=== PATIENT | female | born 1960 | race African-American/Black ===

== ENCOUNTER 2018-09-27 18:26 | Inpatient (IN) | payer OTHER ==
[2018-09-27] MEDS ORDERED: Dextrose 50% Abboject 50 ML SYRINGE ONE (18:46)
[2018-09-27 18:59] LABS: #Eosinphils 0.1 thou/uL (0.0-0.7); #Lymphocytes 0.8 thou/uL (1.20-3.40); #Neutrophils 4.8 thou/uL (1.40-6.50); %Basophils 0.4 % (0.0-1.0); %Eosinophils 2.1 % (0.0-10.0); %Lymphocytes 14.4 % (21.0-51.0); %Monocytes 0.7 % (0.0-10.0); %Neutrophils 82.5 % (42.0-75.0); Hemoglobin 11.8 g/dL (12.0-16.0); Mean Corpuscular HGB CONC 32.9 g/dL (32.0-36.0); Mean Corpuscular Hemoglobin 29.5 pg (27.0-31.0); Mean Corpuscular Volume 89.6 fL (78.0-98.0); Mean Platelet Volume 8.6 fL (7.4-10.4); Platelet Count 181 thou/uL (130-400); RBC Distribution Width 20.5 % (11.5-14.5); White Blood Cell (WBC) Count 5.8 thou/uL (4.8-10.8)
[2018-09-27 19:10] LABS: Actual Bicarbonate (HCO3a) 24.7 mEq/L (22-28); Analyzer IN Cardio ER; CO2 Tension 40.2 mmHg (35.0-45.0); Calcium, Ionized 0.99 mmol/L (1.12-1.30); Carboxyhemoglobin (COHb) 0.1 gm% (0.0-3.0); Hemoglobin (Hb) 11.6 g/dL (12.0-16.0); O2 Tension (PaO2) 69.7 mmHg (80.0-100.0); pH, Arterial 7.41 (7.35-7.45)
[2018-09-27] MEDS ORDERED: Piperacillin/Tazobactam 4.5 GM VIAL ONE (19:11)
[2018-09-27 19:12] LABS: Puncture Site LRA
[2018-09-27] MEDS ORDERED: Magnesium 2 GM/50 ML BAG (IN WATER) ONE (19:14)
[2018-09-27] MEDS ORDERED: Potassium Chloride 20 MEQ TAB ONE (20:01)
[2018-09-27 20:09] LABS: ALT (SGPT) 28 U/L (8-55); AST (SGOT) 63 U/L (5-34); Albumin 2.6 g/dL (3.5-5.0); Alkaline Phosphatase 88 U/L (40-150); Anion Gap 14 mmol/L (10-20); BUN (Urea Nitrogen) 46 mg/dL (9.8-20.1); Bilirubin, Total 0.3 mg/dL (0.2-1.2); CK (CPK) 746 U/L (29-168); Calc. Creatinine Clearance 0 mL/min (70-130); Calcium 7.3 mg/dL (7.8-10.44); Carbon Dioxide 24 mmol/L (22-29); Chloride 105 mmol/L (98-107); Estimated GFR-MDRD 16; Globulin 1.9 g/dL (2.4-3.5); Glucose 148 mg/dL (70-105); Magnesium 3.1 mg/dL (1.6-2.6); Protein, Total 4.5 g/dL (6.0-8.3); Sodium 140 mmol/L (136-145)
[2018-09-27 20:14] LABS: Potassium 2.5 mmol/L (3.5-5.1)
[2018-09-27 20:14] LABS: Bilirubin Negative (Negative); Blood, Urine Negative (Negative); Clarity CLEAR (Clear); Glucose, Urine (Dipstick) Negative (Negative); Leukocyte Negative (Negative); Nitrite Negative (Negative); Protein, Urine (Dipstick) 30 mg/dL (Neg-Trace); Specific Gravity, Urine 1.012 (1.002-1.036)
[2018-09-27 20:16] LABS: Bacteria/HPF None Seen HPF (None Seen); RBC/HPF 0-3 HPF (0-3); Squamous Epithelial 0-3 HPF (0-3); WBC/HPF 0-3 HPF (0-3)
--- NOTE | 2018-09-27 20:24 | RAD ---
ONE VIEW CHEST: 09/27/18 COMPARISON: 07/01/08. HISTORY: Dyspnea. FINDINGS: Enlarged cardiac silhouette. The pulmonary vessels are within normal limits. The diffuse interstitial opacities with bilateral perihilar alveolar opacification. No significant pleural fluid. No pneumoth orax. IMPRESSION: Congestive heart failure. POS: PPP
[2018-09-27 20:26] LABS: Hyaline Casts/LPF >50 HYALINE CAST LPF (0-3 Hyaline); Pathc Cast-AUWi Flag 14.97 (0-2.49)
[2018-09-27 20:30] LABS: CKMB 2.6 ng/mL (0-6.6)
[2018-09-27] MEDS ORDERED: Potassium Chloride 40 MEQ in Sodium Chloride 0.9% 250 ML 250 ML IVPB SCH (20:30)
[2018-09-27 20:34] LABS: Crystals/HPF None Seen HPF (Negative); Other Casts/LPF None Seen LPF (0-3 Hyaline); Oval Fat Bodies/HPF None Seen HPF (None Seen); Renal Epithelial None Seen HPF (0-3); Transitional Epithelial NONE SEEN HPF (0-3); Trichomonas/HPF None Seen HPF (None Seen)
[2018-09-27] MEDS ORDERED: Norepinephrine 8 MG/0.9% NS 250 ML ONE (21:11)
--- NOTE | 2018-09-27 22:06 | RAD ---
CHEST ONE VIEW: 09/27/18 COMPARISON: 09/27/18 HISTORY: Central line placement. FINDINGS: Interval placement of a right sided internal jugular central venous catheter. Distal tip projects ove r the superior vena cava. No pneumothorax. There is persistent cardiomegaly, pulmonary vascular conge stion, and interstitial/alveolar opacification. No pleural effusion. IMPRESSION: 1. Interval placement of a right sided internal jugular central venous catheter. Distal tip proj ects over the expected region of the superior vena cava. No pneumothorax. 2. Findings compatible with congestive heart failure. POS: PPP
[2018-09-27 23:12] LABS: Lactic Acid 1.5 mmol/L (0.5-2.2)
[2018-09-27 23:35] LABS: Anion Gap 17 mmol/L (10-20); BUN (Urea Nitrogen) 45 mg/dL (9.8-20.1); Calc. Creatinine Clearance 0 mL/min (70-130); Calcium 8.1 mg/dL (7.8-10.44); Carbon Dioxide 24 mmol/L (22-29); Chloride 106 mmol/L (98-107); Estimated GFR-MDRD 17; Glucose 95 mg/dL (70-105); Potassium 4.5 mmol/L (3.5-5.1); Sodium 142 mmol/L (136-145)
[2018-09-27] MEDS ORDERED: Furosemide 40 MG/4 ML VIAL ONE (23:46)
[2018-09-28] MEDS ORDERED: Acetaminophen 325 MG TAB PO PRN (00:20)
[2018-09-28] MEDS ORDERED: Ondansetron PF 4 MG/2 ML Vial IVP PRN (00:20)
[2018-09-28] MEDS ORDERED: Norepinephrine 8 MG/0.9% NS 250 ML IVPB SCH (00:30)
[2018-09-28 01:16] LABS: Troponin I 0.031 ng/mL (< 0.028)
[2018-09-28 01:36] VITALS: BMI 38.5
[2018-09-28 02:16] LABS: #Lymphocytes 0.4 thou/uL (1.20-3.40); #Monocytes 0.1 thou/uL (0.11-0.59); #Neutrophils 5.5 thou/uL (1.40-6.50); %Basophils 0.2 % (0.0-1.0); %Eosinophils 0.5 % (0.0-10.0); %Lymphocytes 7.2 % (21.0-51.0); %Monocytes 1.9 % (0.0-10.0); %Neutrophils 90.2 % (42.0-75.0); Hemoglobin 10.6 g/dL (12.0-16.0); Mean Corpuscular HGB CONC 33.5 g/dL (32.0-36.0); Mean Corpuscular Hemoglobin 30.6 pg (27.0-31.0); Mean Corpuscular Volume 91.1 fL (78.0-98.0); Mean Platelet Volume 8.2 fL (7.4-10.4); Platelet Count 157 thou/uL (130-400); RBC Distribution Width 20.3 % (11.5-14.5); Red Blood Cell (RBC) Count 3.47 mill/uL (4.20-5.40); White Blood Cell (WBC) Count 6.1 thou/uL (4.8-10.8)
[2018-09-28] MEDS ORDERED: Vancomycin HCl 1 GM in Premix Bag 1 BAG IVPB SCH (02:30)
[2018-09-28 03:11] LABS: Anion Gap 19 mmol/L (10-20); BUN (Urea Nitrogen) 45 mg/dL (9.8-20.1); Calc. Creatinine Clearance 30 mL/min (70-130); Calcium 8.2 mg/dL (7.8-10.44); Carbon Dioxide 21 mmol/L (22-29); Chloride 106 mmol/L (98-107); Estimated GFR-MDRD 18; Glucose 89 mg/dL (70-105); Potassium 4.1 mmol/L (3.5-5.1); Sodium 142 mmol/L (136-145)
--- NOTE | 2018-09-28 04:00 | HP ---
PRIMARY CARE PHYSICIAN: Glendy Mccormack MD CODE STATUS: Full code. TIME OF EVALUATION: 11:50 p.m. CHIEF COMPLAINT: Shortness of breath. HISTORY OF PRESENT ILLNESS: This is a 58-year-old female patient with past medical history of multiple comorbidities including CHF, AFib, diabetes type 2, hyperlipidemia, hypertension, came to the hospital after having generalized weakness, gradually worsening severe shortness of breath, with no clear triggers, no alleviating factors, the patient was also found to have hypoglycemia, with a fingerstick in the 50s. It looks like she has been taking a home metformin. The symptoms were reported as moderate, sudden onset, no alleviating factors. In the ER, the patient received some hydration. It seems the patient has underlying CHF and might have developed some pulmonary edema, improved with home BiPAP, and also after giving some Lasix, unclear if there is any underlying infection given presentation with hypoglycemia, metformin should not cause hypoglycemia in this patient. REVIEW OF SYSTEMS: CONSTITUTIONAL: No fever, chills or generalized weakness. RESPIRATORY: The patient has cough. No sputum production. Shortness of breath. CARDIOVASCULAR: No chest pain or palpitation. GASTROINTESTINAL: No nausea. No vomiting, diarrhea or abdominal pain. SUPERVISOR GROUNDS: No dizziness, headache or feeling lightheaded. GENITOURINARY: No burning on urination. EXTREMITIES: No leg swelling. All other systems were reviewed and negative except for the findings mentioned noted. PAST MEDICAL HISTORY: As mentioned in the HPI. SURGICAL HISTORY: No surgical history. FAMILY HISTORY: Reviewed and noncontributory to current presentation. PSYCHIATRIC HISTORY: Anxiety and depression. SOCIAL HISTORY: The patient smokes on a daily basis, 4 cigarettes a day. No alcohol. No drugs. ALLERGIES: NO KNOWN DRUG ALLERGIES REPORTED. MEDICATIONS: 1. Hydralazine. 2. Diltiazem. 3. Losartan. 4. Hydrochlorothiazide. 5. Metformin. 6. Leflunomide. 7. Carvedilol. 8. Clonidine. 9. Atorvastatin. 10. Glimepiride. 11. Eliquis. 12. Multaq. 13. Furosemide. 14. Folic acid. PHYSICAL EXAMINATION: VITAL SIGNS: On presentation, initial blood pressure 132/72 with heart rate of 79, respiratory rate was 27, and temperature was 97.4. The patient became hypotensive, was placed on Levophed with improvement of the blood pressure. GENERAL APPEARANCE: The patient is alert, oriented, in mild distress due to respiratory distress. HEENT: Eyes, normal conjunctivae. Moist oral mucosa. Anicteric. Bilateral JVD. RESPIRATORY: Bilateral air entry. Bilateral rales. Bilateral wheezing. Symmetric expansion that is decreased. CARDIOVASCULAR: Normal rate. No murmurs. No gallop. Bilateral leg edema. ABDOMEN: Soft. Normal bowel sounds. MUSCULOSKELETAL: Good range of motion and strength. No tenderness. SKIN: Warm and intact. No pallor. No rash. No redness. Peripheral pulses are present. Capillary refill seems to be intact. NEUROLOGICAL: No evidence of any new focal weakness. Baseline speech. Cranial nerves seems to be intact. PSYCHIATRIC: The patient is in good mood. No anxiety. Optimal judgment. LABORATORY AND DIAGNOSTIC DATA: EKG showed atrial fibrillation at the rate of 69, QRS 84, QT corrected 537. Labs were reviewed. White count 5.8, hemoglobin 11.8, MCV 89, and platelet count 181. ABG was done. The patient has pH of 7.41, pCO2 of 40.2 with pO2 of 69.7. This was done on room air. Chemistry: Sodium 140; potassium 2.5, repeat one 4.5; chloride 105; anion gap 14; BUN 46 with creatinine of 3.63. We do not have previous values to compare. The patient reported she has never been told that her creatinine was high. GFR 16. Glucose 148. Lactic acid 2.6, calcium 7.3, and magnesium 3.1. Chest x-ray was reviewed, showed congestive heart failure. ASSESSMENT AND PLAN: The patient will be placed in the hospital with following medical problems: 1. Acute congestive heart failure exacerbation, chest x-ray is positive, the patient will be placed in diureses, the patient also has kidney failure, query this is acute or chronic, or acute on chronic, start diuresis. The patient has elevated BUN and creatinine. This will need to be monitored. If not improving, the patient might need Nephro for recreational assistant. 2. The patient is in shock hypotension with systolic in the 80s, not resolving with fluids, it could be secondary to acute cardiogenic congestive failure, also might be an underlying infection. Given the severity of the illness, we have started broad-spectrum antibiotics, this can be tomorrow if no evidence for infection is found, we will also send procalcitonin, that will help us to make a decision. 3. Hypokalemia, presenting with potassium of 2.5, been corrected, now is 4.5. 4. Lactic acidosis, presenting with 2.6, now is 1.5. 5. Hmz-[id number]-opmyyoyiv myocardial infarction type 2. The patient presented with troponin 0.044, the second one 0.031, we will monitor, we will treat accordingly. 6. Deep venous thrombosis prophylaxis. 7. History of diabetes, reconcile home medications, sliding scale for optimal control. 8. Hyperlipidemia. Low-cholesterol diet is advised, reconcile home medications. 9. Uncontrolled hypertension. The patient presented with hypotension, this has been stable. We will hold all blood pressure medications, we will reconcile as needed. Job ID: [id number]
[2018-09-28] MEDS: Piperacillin/Tazobactam 2.25 GM in Sodium Chloride 0.9% 100 ML IVPB SCH ×3 (05:08→17:42)
[2018-09-28 05:43] LABS: Troponin I 0.036 ng/mL (< 0.028)
[2018-09-28] MEDS ORDERED: Piperacillin/Tazobactam 4.5 GM in Sodium Chloride 0.9% 100 ML IVPB SCH (06:00)
[2018-09-28] MEDS ORDERED: Furosemide 40 MG/4 ML VIAL SLOW IVP SCH (06:00)
[2018-09-28] MEDS ORDERED: Diabetic Tussin 200 MG/10 ML UDCUP PO PRN (07:58)
[2018-09-28] MEDS ORDERED: Senokot S 8.6-50 MG TAB PO PRN (07:58)
[2018-09-28] MEDS ORDERED: Artificial Tears 18 DROP/0.9 ML EA EYE PRN (07:58)
[2018-09-28] MEDS ORDERED: Cepastat Lozenges 1 LOZ PO PRN (07:58)
[2018-09-28] MEDS ORDERED: Eucerin (Mineral Oil/Petrolatum,White) 30 gm Jar TOP PRN (07:58)
[2018-09-28] MEDS ORDERED: Loratadine 10 MG TAB PO PRN (07:58)
[2018-09-28] MEDS ORDERED: Sodium Chloride 0.65% Nasal 44 ML BOT EA NARE PRN (07:58)
[2018-09-28] MEDS ORDERED: Dextrose 5% in Water 1,000 ML IV PRN ×2 (08:00→17:26)
[2018-09-28] MEDS ORDERED: Dextrose 50% Abboject 50 ML SYRINGE SLOW IVP PRN (08:00)
[2018-09-28] MEDS ORDERED: Oseltamivir 75 MG CAP PO SCH (09:00)
[2018-09-28] MEDS: Saccharomyces boulardii 250 MG CAP PO SCH (09:23)
[2018-09-28] MEDS: Heparin 5,000 UNITS/ML VIAL SC SCH ×3 (09:23→20:15)
[2018-09-28] MEDS: Oseltamivir 6 MG/ML ORAL SUSP PO SCH (09:25)
--- NOTE | 2018-09-28 10:56 | PDOC.PN ---
- Subjective Encounter Start Date: 09/28/18 Encounter Start Time: 09:00 -: old records requested/rev pt is on bipap, she feels better with bipap, her BP has improved and she is off levophed - Objective Resuscitation Status - Order Detail: 09/28/18 00:20 Resuscitation Status Routine Resuscitation Status: FULL: Full Resuscitation MAR Reviewed: Yes Vital Signs & Weight: Vital Signs (12 hours) Temp Pulse Pulse Ox 09/28/18 08:00 98.0 F 09/28/18 04:00 97.5 F L 09/28/18 02:05 82 09/28/18 01:30 98 09/28/18 01:20 98.3 F Weight Weight 217 lb 9.54 oz Most Recent Monitor Data Heart Rate from ECG 98 NIBP 101/59 NIBP BP-Mean 73 Respiration from ECG 29 SpO2 95 I&O: 09/27/18 09/28/18 09/29/18 06:59 06:59 06:59 Intake Total 300 120 Output Total 1500 775 Balance -1200 -655 Result Diagrams: 09/28/18 02:06 09/28/18 02:06 Additional Labs: Accuchecks 09/28/18 09/28/18 09/28/18 10:31 09:17 09:04 POC Glucose 116 H 36 L* 40 L* 09/27/18 09/27/18 19:05 18:41 POC Glucose 228 H 50 L* Radiology Reviewed by me: Yes (chest xray reviewed) EKG Reviewed by me: Yes (afib) Phys Exam - Physical Examination Constitutional: NAD on bipap HEENT: PERRLA, sclera anicteric Neck: no JVD, supple basal rales+ Cardiovascular: no significant murmur, irregular Gastrointestinal: soft, non-tender, no distention, positive bowel sounds Musculoskeletal: no edema, pulses present Neurological: non-focal, normal sensation, moves all 4 limbs Lymphatic: no nodes Psychiatric: normal affect, A&O x 3 Skin: no rash, normal turgor Dx/Plan (1) Acute renal failure superimposed on stage 3 chronic kidney disease Code(s): N17.9 - ACUTE KIDNEY FAILURE, UNSPECIFIED; N18.3 - CHRONIC KIDNEY DISEASE, STAGE 3 (MODERATE) Status: Acute (2) Acute respiratory failure with hypoxemia Code(s): J96.01 - ACUTE RESPIRATORY FAILURE WITH HYPOXIA Status: Acute Comment: on bipap (3) Hypotension Status: Acute (4) Acute on chronic diastolic ACC/AHA stage C congestive heart failure Code(s): I50.33 - ACUTE ON CHRONIC DIASTOLIC (CONGESTIVE) HEART FAILURE Status : Acute (5) Influenza A Code(s): J10.1 - FLU DUE TO OTH IDENT INFLUENZA VIRUS W OTH RESP MANIFEST Status: Acute (6) Hypoglycemia associated with type 2 diabetes mellitus Code(s): E11.649 - TYPE 2 DIABETES MELLITUS WITH HYPOGLYCEMIA WITHOUT COMA Status: Acute (7) Demand ischemia Code(s): I24.8 - OTHER FORMS OF ACUTE ISCHEMIC HEART DISEASE Status: Acute (8) Obesity (BMI 30-39.9) Code(s): E66.9 - OBESITY, UNSPECIFIED Status: Chronic (9) Anemia, normocytic normochromic Code(s): D64.9 - ANEMIA, UNSPECIFIED Status: Chronic (10) Atrial fibrillation Code(s): I48.91 - UNSPECIFIED ATRIAL FIBRILLATION Status: Chronic Qualifiers: Atrial fibrillation type: chronic Qualified Code(s): I48.2 - Chronic atrial fibrillation (11) Dyslipidemia Code(s): E78.5 - HYPERLIPIDEMIA, UNSPECIFIED Status: Chronic (12) Chronic anticoagulation Code(s): Z79.01 - RESIDENTIAL (CURRENT) USE OF ANTICOAGULANTS Status: Chronic - Plan cont current plan of care, continue antibiotics, respiratory therapy * continue bipap * continue vancomycin and zosyn empirically * add tamiflu * cardiology consulted * pulmonary consulted * echo will be done * will repeat labs tomorrow * add respiratory therapy * medication reviewed as below * symptomatic treatment. Review of Systems - Review of Systems Constitutional: negative: fever, chills, sweats, weakness, malaise, other Eyes: negative: Pain, Vision Change, Conjunctivae Inflammation, Eyelid Inflammation, Redness, Other ENT: negative: Ear Pain, Ear Discharge, Nose Pain, Nose Discharge, Nose Congestion, Mouth Pain, Mouth Swelling, Throat Pain, Throat Swelling, Other Respiratory: Cough, SOB with Excertion. negative: Dry, Shortness of Breath, Hemoptysis, Pleuritic Pain, Sputum, Wheezing Cardiovascular: negative: chest pain, palpitations, orthopnea, paroxysmal nocturnal dyspnea, edema, light headedness, other Gastrointestinal: negative: Nausea, Vomiting, Abdominal Pain, Diarrhea, Constipation, Melena, Hematochezia, Other Genitourinary: negative: Dysuria, Frequency, Incontinence, Hematuria, Retention , Other Musculoskeletal: negative: Neck Pain, Shoulder Pain, Arm Pain, Back Pain, Hand Pain, Leg Pain, Foot Pain, Other Skin: negative: Rash, Lesions, Curtis, Bruising, Other - Medications/Allergies Allergies/Adverse Reactions: Allergies Allergy/AdvReac Type Severity Reaction Status Date / Time No Known Drug Allergies Allergy Verified 09/28/18 01:52 Medications: Current Medications Acetaminophen (Tylenol) 650 mg PO Q4H PRN PRN Reason: Headache/Fever/Mild Pain (1-3) Albuterol/Ipratropium (Duoneb) 3 ml NEB [id number] DANIELA Albuterol/Ipratropium (Duoneb) 3 ml NEB [id number] PRN PRN Reason: SOB &/or Wheezing Artificial Tears (Tears Naturale) 2 drop EA EYE PRN PRN PRN Reason: Dry Eyes Dextrose/Water (Dextrose 50%) 25 gm SLOW IVP PRN PRN PRN Reason: Hypoglycemia Glucagon (Glucagon) 1 mg IM PRN PRN PRN Reason: Hypoglycemia Guaifenesin (Robitussin Sf) 200 mg PO Q4H PRN PRN Reason: Cough Heparin Sodium (Porcine) (Heparin) 5,000 units SC TID [facility] Last Admin: 09/28/18 09:23 Dose: 5,000 units Norepinephrine Bitartrate (Levophed) 250 mls @ 0 mls/hr IVPB INF DANIELA; Protocol Vancomycin HCl 750 mg/ Sodium (Chloride) 250 mls @ 250 mls/hr IVPB Q24HR DANIELA Piperacillin Sod/Tazobactam (Sod 2.25 gm/ Sodium Chloride) 100 mls @ 200 mls/ hr IVPB Q6HR [facility] Last Admin: 09/28/18 05:08 Dose: 100 mls Dextrose/Water (D5w) 1,000 mls @ 0 mls/hr IV .Q0M PRN PRN Reason: Hypoglycemia Insulin Human Lispro (Humalog) 0 units SC .MILD SLIDING SCALE PRN PRN Reason: Mild Correctional Scale Loratadine (Claritin) 10 mg PO DAILYPRN PRN PRN Reason: Sinus Symptoms Mineral Oil/White Petrolatum (Eucerin Cream) 0 gm TOP BIDPRN PRN PRN Reason: Dry Skin Miscellaneous Medication (Pharmacy To Dose) 1 each IVPB PRN PRN PRN Reason: Pharmacy to dose Ondansetron HCl (Zofran) 4 mg IVP Q6H PRN PRN Reason: Nausea/Vomiting Oseltamivir Phosphate (Tamiflu) 30 mg PO DAILY [facility] Stop: 10/07/18 09:01 Last Admin: 09/28/18 09:25 Dose: 30 mg Pantoprazole Sodium (Protonix) 40 mg PO DAILY [facility] Last Admin: 09/28/18 09:23 Dose: 40 mg Saccharomyces Boulardii (Florastor) 250 mg PO DAILY [facility] Last Admin: 09/28/18 09:23 Dose: 250 mg Senna/Docusate Sodium (Senokot S) 2 tab PO BID PRN PRN Reason: Constipation Sodium Chloride (Flush - Normal Saline) 10 ml IVF Q12HR [facility] Last Admin: 09/28/18 09:23 Dose: 10 ml Sodium Chloride (Flush - Normal Saline) 10 ml IVF PRN PRN PRN Reason: Saline Flush Sodium Chloride ([place] Nasal [place] 0.65%) 0 ml EA NARE QIDPRN PRN PRN Reason: Nasal Congestion Throat Lozenges (Cepastat Lozenges) 1 zulema PO Q2H PRN PRN Reason: Sore Throat
[2018-09-28] MEDS ORDERED: Digoxin 0.5 MG/2 ML AMP SLOW IVP ONE (14:00)
--- NOTE | 2018-09-28 14:38 | CON ---
DATE OF CONSULTATION: 09/28/2018 CARDIOLOGY CONSULT NOTE INDICATION FOR CONSULTATION: A 58-year-old female with acute respiratory failure. HISTORY OF PRESENT ILLNESS: This is a very unfortunate 58-year-old female, who has been followed by Dr. Messi Mendez in the past, who do not have any significant past medical history, but by review of the records, she does have a history of atrial fibrillation and she is on Multaq. She also has type 2 diabetes and anemia and is being admitted due to increasing shortness of breath and respiratory failure with decreased O2 saturation. She has been found to be positive for influenza A. She denies any significant chest pain. She does have a BiPAP mask on at this time. In obtaining much history and review of systems, it was almost impossible. Although, the patient is still short of breath, but seems to be tolerating the BiPAP mask and O2 saturations are 95%. At this time, she appears to be just having respiratory difficulties, but denies any chest pain, but remains short of breath. PAST MEDICAL HISTORY: Significant for diastolic heart failure, type 2 diabetes, anemia, atrial fibrillation, and hypercholesterolemia. She has history of anxiety and depression. She has apparently some kidney disease and this may be acute on chronic. Her creatinine is elevated. Her past medical history otherwise was obtained by reviewing the medical records and just by asking some yes and no questions of the patient. FAMILY HISTORY: Noncontributory. MEDICATIONS: Include; 1. Multaq. 2. Amaryl. 3. Leflunomide. 4. Eliquis. 5. Losartan/hydrochlorothiazide. 6. Diltiazem. 7. Coreg. 8. Clonidine. 9. Hydralazine. 10. Furosemide. 11. Lipitor. 12. Metformin. 13. ProAir. 14. Folic acid. ALLERGIES: THERE WERE NONE. SOCIAL HISTORY: Apparently, the patient continued to smoke about 4 cigarettes a day. She denied any alcohol or any illicit drug use. REVIEW OF SYSTEMS: Not obtainable as the patient had increased shortness of breath. Mainly her complaint was the dyspnea and shortness of breath. Otherwise, she denied any significant pain. PHYSICAL EXAMINATION: GENERAL: Reveals an obese, middle-aged female. VITAL SIGNS: Blood pressure is 116/59. Heart rate is in the 90s to 120s with atrial fibrillation with irregular heart rate, actually it goes up to 130s to 140s at times. Respiratory rate is 26 to 30, O2 saturation 99%, and temperature is 98.5. HEENT: Shows the head to be normocephalic and atraumatic. LUNGS: I could not hear any significant bruits, but difficult to auscultate due to the rapid respiratory rate and also the upper airway noise. Her chest has diffuse wheezing throughout and some congestion. CARDIOVASCULAR: Reveals irregularly irregular rhythm. Tachycardia. Could not hear any gross murmurs. ABDOMEN: Shows obesity with positive bowel sounds. EXTREMITIES: Show no clubbing or cyanosis. No edema was present. Pedal pulses are present. NEUROLOGIC: The patient appears to be intact. DIAGNOSTIC DATA: Her laboratory data shows hemoglobin 10.6, WBC of 6.1. Blood sugar was 92. Potassium was 4.1, earlier I believe it was less than 3 on admission, I believe her potassium was 2.5 when she is in the emergency room. Her creatinine is 3.26. Her CPK was 746 with MB of 2.6. Troponin I is 0.04, decreased down to 0.03 and remains at 0.036, which is indeterminate for myocardial infarction. Certainly based on the elevated CPK, it does not indicate a cardiac problem, especially in view of her renal insufficiency. Echocardiogram is being performed as well while I was seeing the patient and this shows ejection fraction, which appears to be normal at 55% to 60%. There was no significant chamber dilatation that I could elicit in just grossly reviewing of the films. There was no obstructive lesions in the valves and full report will follow, but ejection fraction appears to be normal. She does have atrial fibrillation and likely does have diastolic dysfunction but cannot be clearly identified with the atrial fibrillation with rapid ventricular response. I have reviewed the medications in this patient and would agree with the present medication. ASSESSMENT AND PLAN: 1. Acute respiratory failure due to influenza A. 2. Diabetes. This is under reasonable control at this time. 3. Diastolic heart failure. We will continue to monitor the patient very carefully. 4. Hypercholesterolemia. We would resume her medications when she is off the BiPAP mask, unable to eat. 5. Anemia. This most likely is stable for this patient, but she does have a hemoglobin of 10.6. Chronic atrial fibrillation, for which the patient has been on Multaq and apparently on other oral anticoagulants such as Eliquis. We will continue these medications if possible. We would agree also with beta-blockers and digoxin if necessary, but we will be very careful with the digoxin due to the kidney problems, but we could certainly load her with digoxin administered to control the rate. She has been placed on diltiazem at this time. As long as the blood pressure remains stable, I would agree with the diltiazem in order to control the heart rate also. We will start her with a loading dose of digoxin and then hopefully this will maintain the heart rate. Once we have resolved her underlying respiratory problems and I do not suspect that cardiac status will improve. It might be advantageous for us to obtain any medical records from Dr. Mendez's office to determine whether or not she has had any previous coronary artery disease that we are aware of, but on the EKG there does not seem to have an indication at this time of ischemia. We will be more than happy to continue to follow the patient with you throughout this course, but at this time, we would agree with medications except we will need to slow the heart rate and continue either her Eliquis or subcu Lovenox. Job ID: [id number]
[2018-09-28] MEDS: Diltiazem HCl 125 MG, Admixture Fee 1 EACH in Sodium Chloride 0.9% 100 ML IVPB SCH (17:51)
[2018-09-28 19:23] LABS: Actual Bicarbonate (HCO3a) 26.6 mEq/L (22-28); Base Excess (BEa) 2.3 mEq/L (-2.0 to +3.0); CO2 Tension 40.4 mmHg (35.0-45.0); Calcium, Ionized 1.01 mmol/L (1.12-1.30); Carboxyhemoglobin (COHb) 0.5 gm% (0.0-3.0); Hemoglobin (Hb) 10.5 g/dL (12.0-16.0); Potassium - ABG Lab 3.32 mmol/L (3.70-5.30); pH, Arterial 7.44 (7.35-7.45)
[2018-09-28] MEDS: Digoxin 0.5 MG/2 ML AMP SLOW IVP SCH (19:23)
[2018-09-28] MEDS ORDERED: Furosemide 100 MG/10 ML VIAL SLOW IVP SCH (19:45)
[2018-09-28] MEDS ORDERED: Morphine 4 MG/ML VIAL SLOW IVP SCH (19:45)
--- NOTE | 2018-09-28 22:36 | CON ---
DATE OF CONSULTATION: 09/28/2018 HISTORY OF PRESENT ILLNESS: Carmelina Garg is a pleasant 58-year-old female. She presented early this morning with complaints of shortness of breath. She is in atrial fibrillation. Throughout the day today, she has had intermittent rapid atrial fibrillation and has been on and off BiPAP. She is able to speak in sentences when I interviewed her. She had no chest pain complaints. PAST MEDICAL HISTORY: Remarkable for diabetes, lipid disorder, hypertension. No reported history of heart failure. FAMILY HISTORY: Negative for lung disease in early age. SOCIAL HISTORY: Nonsmoker, nondrinker. REVIEW OF SYSTEMS: Ten-point review of systems is remarkable for shortness of breath. She denies fever, purulent sputum, or hemoptysis. PHYSICAL EXAMINATION: VITAL SIGNS: Heart rate has been up to as high as 150 to 160s today, blood pressure 116/80, respiratory rates in the 30s. She is on BiPAP. Her BiPAP pressures have been increased this evening. She has been given Lasix and morphine this evening. She had a bolus of Cardizem, as well as several doses of digoxin and is on a Cardizem drip. LUNGS: Remarkable for crackles in both lung bases. HEART: Irregular. ABDOMEN: Soft and nontender. EXTREMITIES: Without edema. Chest radiograph showed pulmonary edema last night. LABORATORY DATA: White count 6.1, hemoglobin 10.6, platelets 157. Sodium 142, potassium 4.1, chloride 106, bicarb 21, BUN 45, creatinine 3.26 and 3.63 yesterday. Intake and output were negative 1200. IMPRESSION: 1. Atrial fibrillation induced pulmonary edema. Her atrial fib rate needs to be better controlled. 2. Diastolic dysfunction. 3. History of diabetes. PLAN: Continue with BiPAP. Try morphine for preload reduction, air hunger and Lasix. Hopefully, she will diurese and this hopefully will see improvement in rate control. Her Cardizem dose is being titrated up. Critical care time is 35 minutes. Job ID: [id number] MTDD
[2018-09-29] MEDS: Piperacillin/Tazobactam 2.25 GM in Sodium Chloride 0.9% 100 ML IVPB SCH ×4 (00:46→17:37)
[2018-09-29] MEDS: Digoxin 0.5 MG/2 ML AMP SLOW IVP SCH (02:04)
[2018-09-29] MEDS ORDERED: Vancomycin HCl 750 MG in Sodium Chloride 0.9% 250 ML 250 ML IVPB SCH (03:00)
[2018-09-29] MEDS: Diltiazem HCl 125 MG, Admixture Fee 1 EACH in Sodium Chloride 0.9% 100 ML IVPB SCH ×2 (03:45→10:38)
[2018-09-29 05:05] LABS: #Lymphocytes 0.6 thou/uL (1.20-3.40); #Neutrophils 1.9 thou/uL (1.40-6.50); %Basophils 0.3 % (0.0-1.0); %Eosinophils 0.9 % (0.0-10.0); %Lymphocytes 22.5 % (21.0-51.0); %Monocytes 0.5 % (0.0-10.0); %Neutrophils 75.8 % (42.0-75.0); Hemoglobin 12.3 g/dL (12.0-16.0); Mean Corpuscular HGB CONC 32.4 g/dL (32.0-36.0); Mean Corpuscular Hemoglobin 29.4 pg (27.0-31.0); Mean Corpuscular Volume 90.7 fL (78.0-98.0); Mean Platelet Volume 8.9 fL (7.4-10.4); Platelet Count 127 thou/uL (130-400); RBC Distribution Width 20.4 % (11.5-14.5); Red Blood Cell (RBC) Count 4.19 mill/uL (4.20-5.40); White Blood Cell (WBC) Count 2.5 thou/uL (4.8-10.8)
[2018-09-29 05:23] LABS: Lactic Acid 0.9 mmol/L (0.5-2.2)
[2018-09-29 05:35] LABS: ALT (SGPT) 33 U/L (8-55); AST (SGOT) 55 U/L (5-34); Albumin 3.1 g/dL (3.5-5.0); Alkaline Phosphatase 100 U/L (40-150); Anion Gap 17 mmol/L (10-20); BUN (Urea Nitrogen) 33 mg/dL (9.8-20.1); Bilirubin, Total 0.2 mg/dL (0.2-1.2); Calc. Creatinine Clearance 49 mL/min (70-130); Carbon Dioxide 24 mmol/L (22-29); Chloride 105 mmol/L (98-107); Estimated GFR-MDRD 32; Globulin 3.1 g/dL (2.4-3.5); Glucose 81 mg/dL (70-105); Potassium 2.9 mmol/L (3.5-5.1); Protein, Total 6.2 g/dL (6.0-8.3); Sodium 143 mmol/L (136-145)
[2018-09-29] MEDS ORDERED: Potassium Chloride 20 MEQ TAB PO SCH (06:30)
--- NOTE | 2018-09-29 07:46 | PDOC.CTH ---
Cardiology Progress Note - Subjective The pt seen and examined. No overnight events. No cardiac complaints. She is still on Bipap; however, she stated she can breath better today than yesterday. - Objective Vital Signs Temp Pulse Pulse Ox 09/29/18 04:00 99.8 F H 09/29/18 02:09 111 H 09/29/18 02:04 119 H 09/29/18 00:00 100.2 F H 09/28/18 22:00 116 H 09/28/18 20:00 97 Weight 217 lb 9.54 oz 09/28/18 09/29/18 09/30/18 06:59 06:59 06:59 Intake Total 300 1921 Output Total 1500 3205 Balance -1200 -1284 - Physical Examination General/Neuro: alert & oriented x3 Neck: no JVD present Lungs: other: (diminished at bases) Heart: other: (irregular) Abdomen: soft Extremities: other: (No edema) - Telemetry Telemetry Rhythm: afib 80-90s - Labs Result Diagrams: 09/29/18 04:10 09/29/18 04:10 Troponin/CKMB CK-MB (CK-2) 2.6 ng/mL (0-6.6) 09/27/18 19:30 Troponin I 0.036 ng/mL (< 0.028) H 09/28/18 05:01 - Assessment/Plan 1. Acute Resp. Failure 2/2 Influenza A - Stable with Bipap. managed by test deskman 2. Afib with RVR - well controlled HR with loading dose of Digoxin and Diltiazem 15mg/h. On Hepairn 5000 units TID; Renal function has been improving. May start BBlocker if her BP is stable 3. Acute on Chronic diastolic HF - stable; Not on bblocker or JEAN/ARB 2/2 hypotension and NELSON 4. NELSON on CKD - improving; cont. to monitor DM type 2 - managed by PCP 5. Hyperlipidemia - will resume Lipitor 40mg when she is more stable 6. Anemia - stable 7. Hypokalemia - already replaced this AM MAR reviewed * Echo on 09/28/2018 showed EF 60-65%, possible diastolic dysfunction, Cont. Afib during the test, mild LA. * Dr Mendez's pt. Waiting for medical record from his office for now. Pt. seen and eval. by me. I agree with the A/P by tghe SOURCING ASSISTANT. The HR has improved. Continue to medically manage the rate. The renal function is improving. Review of Systems - Review of Systems Constitutional: reports: weakness EENTM: reports: no symptoms reported Respiratory: reports: see HPI Cardiac (ROS): reports: no symptoms reported ABD/GI: reports: no symptoms reported
[2018-09-29] MEDS: Saccharomyces boulardii 250 MG CAP PO SCH (09:11)
[2018-09-29] MEDS: Heparin 5,000 UNITS/ML VIAL SC SCH ×3 (09:11→22:06)
--- NOTE | 2018-09-29 09:26 | RAD ---
PORTABLE CHEST: History: CHF, shortness of breath. Comparison: 09-27-18 FINDINGS: Mild cardiomegaly. Mild vascular engorgement. The congestive changes have improved when compared to y esterday. No significant effusion. Central line is unchanged. IMPRESSION: Cardiomegaly and mild vascular engorgement. The vascular and interstitial congestion appears improved when compared to yesterday. POS: [facility]
--- NOTE | 2018-09-29 10:01 | PRG ---
DATE OF SERVICE: 09/29/2018 SUBJECTIVE: Carmelina Garg is still on BiPAP. She became more tachypneic last night. She had reasonable blood gas. She had a heart rate still in the 140s contacted, so we gave her 4 of morphine and 60 mg of Lasix IV. I have checked on an hour later and she was dramatically improved. She feels like she is improved this morning. OBJECTIVE: VITAL SIGNS: She is afebrile. Heart rate is 103 to down into the 90s, blood pressure 120/69, oximetry is 97%, respiratory rate is in the high 20s. LUNGS: Remarkable for crackles at lung bases. HEART: Irregularly irregular. ABDOMEN: Soft and nontender. EXTREMITIES: Without edema. Her feet are warm. LABORATORY DATA: White count 2.5, hemoglobin 12.3, platelets 127. Sodium 143, potassium 2.9, chloride 105, bicarb 24, BUN 33, creatinine 1.97. Creatinine yesterday was 3.26. Intake and output was negative 1284 mL. IMPRESSION: 1. Atrial fibrillation-induced pulmonary edema. 2. Respiratory failure, requiring noninvasive ventilatory support. She is clinically improved. 3. History of diabetes. 4. History of hypertension. 5. [id number] kidney disease, improving. PLAN: Try her off BiPAP today. We probably need to continue to keep her in, relatively negative fluid balance as long as her renal function tolerates this. Critical care time 30 minutes. Job ID: [id number] MTDD
[2018-09-29] MEDS: Oseltamivir 6 MG/ML ORAL SUSP PO SCH (10:34)
--- NOTE | 2018-09-29 11:25 | PDOC.PN ---
- Subjective Encounter Start Date: 09/29/18 Encounter Start Time: 09:30 pt is on bipap, her blood sugar still low, her creatinine is improving, - Objective Resuscitation Status - Order Detail: 09/28/18 00:20 Resuscitation Status Routine Resuscitation Status: FULL: Full Resuscitation MAR Reviewed: Yes Vital Signs & Weight: Vital Signs (12 hours) Temp Pulse Resp Pulse Ox 09/29/18 10:29 109 H 09/29/18 10:28 109 H 27 H 97 09/29/18 09:00 98.7 F 09/29/18 07:48 88 09/29/18 07:47 92 30 H 99 09/29/18 04:00 99.8 F H 09/29/18 02:09 111 H 09/29/18 02:04 119 H 09/29/18 00:00 100.2 F H Weight Weight 217 lb 9.54 oz Most Recent Monitor Data Heart Rate from ECG 103 NIBP 121/69 NIBP BP-Mean 86 Respiration from ECG 34 SpO2 97 I&O: 09/28/18 09/29/18 09/30/18 06:59 06:59 06:59 Intake Total 300 1921 60 Output Total 1500 3205 140 Balance -1200 -1284 -80 Result Diagrams: 09/29/18 04:10 09/29/18 04:10 Additional Labs: Accuchecks 09/29/18 09/29/18 09/28/18 09:10 06:40 21:53 POC Glucose 97 52 L* 73 09/28/18 09/28/18 09/28/18 21:03 17:03 11:44 POC Glucose 44 L* 69 L 92 Radiology Reviewed by me: Yes (chest xray reviwed) EKG Reviewed by me: Yes (afib) Phys Exam - Physical Examination Constitutional: NAD on bipap HEENT: PERRLA, moist MMs, sclera anicteric Neck: no JVD, supple Respiratory: wheezing present bilateral coarse sound Cardiovascular: no significant murmur, irregular Gastrointestinal: soft, non-tender, no distention, positive bowel sounds Musculoskeletal: no edema, pulses present Neurological: non-focal, normal sensation Lymphatic: no nodes Psychiatric: normal affect Skin: no rash, normal turgor Dx/Plan (1) Acute renal failure superimposed on stage 3 chronic kidney disease Code(s): N17.9 - ACUTE KIDNEY FAILURE, UNSPECIFIED; N18.3 - CHRONIC KIDNEY DISEASE, STAGE 3 (MODERATE) Status: Acute (2) Acute respiratory failure with hypoxemia Code(s): J96.01 - ACUTE RESPIRATORY FAILURE WITH HYPOXIA Status: Acute Comment: on bipap (3) Hypotension Status: Acute (4) Acute on chronic diastolic ACC/AHA stage C congestive heart failure Code(s): I50.33 - ACUTE ON CHRONIC DIASTOLIC (CONGESTIVE) HEART FAILURE Status : Acute (5) Influenza A Code(s): J10.1 - FLU DUE TO OTH IDENT INFLUENZA VIRUS W OTH RESP MANIFEST Status: Acute (6) Hypoglycemia associated with type 2 diabetes mellitus Code(s): E11.649 - TYPE 2 DIABETES MELLITUS WITH HYPOGLYCEMIA WITHOUT COMA Status: Acute (7) Demand ischemia Code(s): I24.8 - OTHER FORMS OF ACUTE ISCHEMIC HEART DISEASE Status: Acute (8) Obesity (BMI 30-39.9) Code(s): E66.9 - OBESITY, UNSPECIFIED Status: Chronic (9) Anemia, normocytic normochromic Code(s): D64.9 - ANEMIA, UNSPECIFIED Status: Chronic (10) Atrial fibrillation Code(s): I48.91 - UNSPECIFIED ATRIAL FIBRILLATION Status: Chronic Qualifiers: Atrial fibrillation type: chronic Qualified Code(s): I48.2 - Chronic atrial fibrillation (11) Dyslipidemia Code(s): E78.5 - HYPERLIPIDEMIA, UNSPECIFIED Status: Chronic (12) Chronic anticoagulation Code(s): Z79.01 - PRISON (CURRENT) USE OF ANTICOAGULANTS Status: Chronic - Plan cont current plan of care, continue antibiotics * add solumderol * replace potassium * wean off bipap as tolerated * cardiology and pulmonary recommendation appreciated * medication reviewed as below * symptomatic treatment. * continue diuresis * will monitor in ccu * continue cardizem drip for rate control Review of Systems - Review of Systems Constitutional: weakness. negative: fever, chills, sweats, malaise, other Eyes: negative: Pain, Vision Change, Conjunctivae Inflammation, Eyelid Inflammation, Redness, Other ENT: negative: Ear Pain, Ear Discharge, Nose Pain, Nose Discharge, Nose Congestion, Mouth Pain, Mouth Swelling, Throat Pain, Throat Swelling, Other Respiratory: Cough, Shortness of Breath, SOB with Excertion. negative: Dry, Hemoptysis, Pleuritic Pain, Sputum, Wheezing Cardiovascular: negative: chest pain, palpitations, orthopnea, paroxysmal nocturnal dyspnea, edema, light headedness, other Gastrointestinal: negative: Nausea, Vomiting, Abdominal Pain, Diarrhea, Constipation, Melena, Hematochezia, Other Genitourinary: negative: Dysuria, Frequency, Incontinence, Hematuria, Retention , Other Musculoskeletal: negative: Neck Pain, Shoulder Pain, Arm Pain, Back Pain, Hand Pain, Leg Pain, Foot Pain, Other Skin: negative: Rash, Lesions, Curtis, Bruising, Other - Medications/Allergies Allergies/Adverse Reactions: Allergies Allergy/AdvReac Type Severity Reaction Status Date / Time No Known Drug Allergies Allergy Verified 09/28/18 01:52 Medications: Current Medications Acetaminophen (Tylenol) 650 mg PO Q4H PRN PRN Reason: Headache/Fever/Mild Pain (1-3) Last Admin: 09/29/18 02:14 Dose: 650 mg Albuterol/Ipratropium (Duoneb) 3 ml NEB [id number] PRN PRN Reason: SOB &/or Wheezing Albuterol/Ipratropium (Duoneb) 3 ml NEB [id number] DANIELA Last Admin: 09/29/18 10:28 Dose: 3 ml Artificial Tears (Tears Naturale) 2 drop EA EYE PRN PRN PRN Reason: Dry Eyes Dextrose/Water (Dextrose 50%) 25 gm SLOW IVP PRN PRN PRN Reason: Hypoglycemia Glucagon (Glucagon) 1 mg IM PRN PRN PRN Reason: Hypoglycemia Guaifenesin (Robitussin Sf) 200 mg PO Q4H PRN PRN Reason: Cough Heparin Sodium (Porcine) (Heparin) 5,000 units SC TID [facility] Last Admin: 09/29/18 09:11 Dose: 5,000 units Norepinephrine Bitartrate (Levophed) 250 mls @ 0 mls/hr IVPB INF DANIELA; Protocol Piperacillin Sod/Tazobactam (Sod 2.25 gm/ Sodium Chloride) 100 mls @ 200 mls/ hr IVPB Q6HR [facility] Last Admin: 09/29/18 06:30 Dose: 100 mls Dextrose/Water (D5w) 1,000 mls @ 0 mls/hr IV .Q0M PRN PRN Reason: Hypoglycemia Diltiazem HCl 125 mg/Miscellaneous Medication 1 each/ Sodium Chloride 125 mls @ 5 mls/hr IVPB INF DANIELA; Protocol Last Admin: 09/29/18 10:38 Dose: 125 mls Dextrose/Water (D5w) 1,000 mls @ 0 mls/hr IV .Q0M PRN PRN Reason: BLOOD SUGAR Last Admin: 09/28/18 17:49 Dose: 1,000 mls Insulin Human Lispro (Humalog) 0 units SC .MILD SLIDING SCALE PRN PRN Reason: Mild Correctional Scale Loratadine (Claritin) 10 mg PO DAILYPRN PRN PRN Reason: Sinus Symptoms Mineral Oil/White Petrolatum (Eucerin Cream) 0 gm TOP BIDPRN PRN PRN Reason: Dry Skin Miscellaneous Medication (Pharmacy To Dose) 1 each IVPB PRN PRN PRN Reason: Pharmacy to dose Ondansetron HCl (Zofran) 4 mg IVP Q6H PRN PRN Reason: Nausea/Vomiting Oseltamivir Phosphate (Tamiflu) 30 mg PO DAILY [facility] Stop: 10/07/18 09:01 Last Admin: 09/29/18 10:34 Dose: 30 mg Pantoprazole Sodium (Protonix) 40 mg PO DAILY [facility] Last Admin: 09/29/18 09:11 Dose: 40 mg Potassium Chloride (K-Dur) 20 meq PO BID-[facility] Saccharomyces Boulardii (Florastor) 250 mg PO DAILY [facility] Last Admin: 09/29/18 09:11 Dose: 250 mg Senna/Docusate Sodium (Senokot S) 2 tab PO BID PRN PRN Reason: Constipation Sodium Chloride (Flush - Normal Saline) 10 ml IVF Q12HR [facility] Last Admin: 09/29/18 09:12 Dose: 10 ml Sodium Chloride (Flush - Normal Saline) 10 ml IVF PRN PRN PRN Reason: Saline Flush Sodium Chloride ([place] Nasal [place] 0.65%) 0 ml EA NARE QIDPRN PRN PRN Reason: Nasal Congestion Throat Lozenges (Cepastat Lozenges) 1 zulema PO Q2H PRN PRN Reason: Sore Throat
[2018-09-29] MEDS: Potassium Chloride 20 MEQ TAB PO SCH (17:37)
[2018-09-29] MEDS: HumaLOG 300 UNITS/3 ML VIAL SC PRN (22:08)
[2018-09-30] MEDS: Piperacillin/Tazobactam 2.25 GM in Sodium Chloride 0.9% 100 ML IVPB SCH ×5 (00:36→23:00)
[2018-09-30 02:33] LABS: Anion Gap 16 mmol/L (10-20); BUN (Urea Nitrogen) 29 mg/dL (9.8-20.1); Calc. Creatinine Clearance 55 mL/min (70-130); Calcium 8.7 mg/dL (7.8-10.44); Carbon Dioxide 23 mmol/L (22-29); Chloride 101 mmol/L (98-107); Estimated GFR-MDRD 36; Glucose 429 mg/dL (70-105); Potassium 4.1 mmol/L (3.5-5.1); Sodium 136 mmol/L (136-145)
[2018-09-30] MEDS: Diltiazem HCl 125 MG, Admixture Fee 1 EACH in Sodium Chloride 0.9% 100 ML IVPB SCH (06:04)
[2018-09-30] MEDS: HumaLOG 300 UNITS/3 ML VIAL SC PRN ×2 (06:09→17:39)
[2018-09-30] MEDS ORDERED: Diltiazem HCl 125 MG, Admixture Fee 1 EACH in Sodium Chloride 0.9% 100 ML IVPB SCH (08:23)
--- NOTE | 2018-09-30 08:23 | PDOC.CTH ---
Cardiology Progress Note - Subjective The pt seen and examined. No overnight events. No cardiac complaints. She is on NC now without any difficulties. - Objective Vital Signs Temp Pulse Resp Pulse Ox 09/30/18 07:52 82 22 H 97 09/30/18 04:00 98.9 F 09/30/18 02:22 91 22 H 100 09/30/18 00:00 97.9 F 09/29/18 22:22 85 23 H 98 Weight 217 lb 9.54 oz 09/29/18 09/30/18 10/01/18 06:59 06:59 06:59 Intake Total 1921 1799 Output Total 3205 1655 50 Balance -1284 144 -50 - Physical Examination General/Neuro: alert & oriented x3 Neck: no JVD present Lungs: other: (ex. wheezing. ) Heart: RRR Abdomen: soft Extremities: other: (No edema) - Telemetry Telemetry Rhythm: SR with PACs - Labs Result Diagrams: 09/29/18 04:10 09/30/18 02:01 Troponin/CKMB CK-MB (CK-2) 2.6 ng/mL (0-6.6) 09/27/18 19:30 Troponin I 0.036 ng/mL (< 0.028) H 09/28/18 05:01 - Assessment/Plan 1. Acute Resp. Failure 2/2 Influenza A - Stable with NC. managed by gauger delivery 2. Afib with RVR - SR with PAC with Diltiazem 15mg/h, which will be changed to 360mg PO daily from this AM. On Hepairn 5000 units TID; Renal function has been improving. May start BBlocker if her VS and resp are more stable 3. Acute on Chronic diastolic HF - stable; Not on bblocker 2/2 influenza A or JEAN/ARB 2/2 hypotension and NELSON 4. NELSON on CKD - improving; cont. to monitor 5. DM type 2 - managed by PCP 6. Hyperlipidemia - will resume Lipitor 40mg when she is more stable 7. Anemia - stable 8. Hypokalemia - stable MAR reviewed * Echo on 09/28/2018 showed EF 60-65%, possible diastolic dysfunction, Cont. Afib during the test, mild LA. * Dr Mendez's pt. Waiting for medical record from his office for now. Pt. seen and eval. by me. I agree with the A/P by the EXPERIMENTAL PSYCHOLOGIST. She is still wheezing and has coarse rals but improved. RRR. No edema. Review of Systems - Review of Systems Constitutional: reports: no symptoms reported EENTM: reports: no symptoms reported Respiratory: reports: see HPI Cardiac (ROS): reports: no symptoms reported ABD/GI: reports: no symptoms reported : reports: no symptoms reported
[2018-09-30] MEDS: Saccharomyces boulardii 250 MG CAP PO SCH (10:38)
[2018-09-30] MEDS: Potassium Chloride 20 MEQ TAB PO SCH ×2 (10:38→17:22)
[2018-09-30] MEDS: Heparin 5,000 UNITS/ML VIAL SC SCH ×3 (10:39→21:10)
[2018-09-30] MEDS: Oseltamivir 6 MG/ML ORAL SUSP PO SCH (10:46)
--- NOTE | 2018-09-30 11:22 | PDOC.PN ---
- Subjective Encounter Start Date: 09/30/18 Encounter Start Time: 10:00 Patient seen and examined. No new complaints. No overnight events pt is improving, she did not use bipap last night - Objective Resuscitation Status - Order Detail: 09/28/18 00:20 Resuscitation Status Routine Resuscitation Status: FULL: Full Resuscitation MAR Reviewed: Yes Vital Signs & Weight: Vital Signs (12 hours) Temp Pulse Resp Pulse Ox 09/30/18 11:17 95 25 H 95 09/30/18 08:00 97.1 F L 09/30/18 07:52 82 22 H 97 09/30/18 04:00 98.9 F 09/30/18 02:22 91 22 H 100 09/30/18 00:00 97.9 F Weight Weight 217 lb 9.54 oz Most Recent Monitor Data Heart Rate from ECG 89 NIBP 142/79 NIBP BP-Mean 100 Respiration from ECG 26 SpO2 96 I&O: 09/29/18 09/30/18 10/01/18 06:59 06:59 06:59 Intake Total 1921 1799 Output Total 3205 1655 205 Balance -1284 144 -205 Result Diagrams: 09/29/18 04:10 09/30/18 02:01 Additional Labs: Accuchecks 09/29/18 09/29/18 09/29/18 22:06 16:58 12:43 POC Glucose 422 H 103 106 EKG Reviewed by me: Yes (afib) Phys Exam - Physical Examination Constitutional: NAD HEENT: PERRLA, moist MMs, sclera anicteric Neck: no JVD, supple Respiratory: no rales, wheezing present Cardiovascular: RRR, no significant murmur, no rub Gastrointestinal: soft, non-tender, no distention, positive bowel sounds Musculoskeletal: no edema, pulses present Neurological: non-focal, normal sensation, moves all 4 limbs Lymphatic: no nodes Psychiatric: normal affect, A&O x 3 Skin: no rash, normal turgor Dx/Plan (1) Acute renal failure superimposed on stage 3 chronic kidney disease Code(s): N17.9 - ACUTE KIDNEY FAILURE, UNSPECIFIED; N18.3 - CHRONIC KIDNEY DISEASE, STAGE 3 (MODERATE) Status: Acute (2) Acute respiratory failure with hypoxemia Code(s): J96.01 - ACUTE RESPIRATORY FAILURE WITH HYPOXIA Status: Acute Comment: on bipap (3) Hypotension Status: Acute (4) Acute on chronic diastolic ACC/AHA stage C congestive heart failure Code(s): I50.33 - ACUTE ON CHRONIC DIASTOLIC (CONGESTIVE) HEART FAILURE Status : Acute (5) Influenza A Code(s): J10.1 - FLU DUE TO OTH IDENT INFLUENZA VIRUS W OTH RESP MANIFEST Status: Acute (6) Hypoglycemia associated with type 2 diabetes mellitus Code(s): E11.649 - TYPE 2 DIABETES MELLITUS WITH HYPOGLYCEMIA WITHOUT COMA Status: Acute (7) Demand ischemia Code(s): I24.8 - OTHER FORMS OF ACUTE ISCHEMIC HEART DISEASE Status: Acute (8) Obesity (BMI 30-39.9) Code(s): E66.9 - OBESITY, UNSPECIFIED Status: Chronic (9) Anemia, normocytic normochromic Code(s): D64.9 - ANEMIA, UNSPECIFIED Status: Chronic (10) Atrial fibrillation Code(s): I48.91 - UNSPECIFIED ATRIAL FIBRILLATION Status: Chronic Qualifiers: Atrial fibrillation type: chronic Qualified Code(s): I48.2 - Chronic atrial fibrillation (11) Dyslipidemia Code(s): E78.5 - HYPERLIPIDEMIA, UNSPECIFIED Status: Chronic (12) Chronic anticoagulation Code(s): Z79.01 - ECONOMICS LECTURER (CURRENT) USE OF ANTICOAGULANTS Status: Chronic - Plan cont current plan of care, continue antibiotics, respiratory therapy * medication reviewed as below * symptomatic treatment * overall doing well and improving * will consider transfer to floor when pulmonary ok. Review of Systems - Review of Systems ENT: negative: Ear Pain, Ear Discharge, Nose Pain, Nose Discharge, Nose Congestion, Mouth Pain, Mouth Swelling, Throat Pain, Throat Swelling, Other Respiratory: negative: Cough, Dry, Shortness of Breath, Hemoptysis, SOB with Excertion, Pleuritic Pain, Sputum, Wheezing Cardiovascular: negative: chest pain, palpitations, orthopnea, paroxysmal nocturnal dyspnea, edema, light headedness, other Gastrointestinal: negative: Nausea, Vomiting, Abdominal Pain, Diarrhea, Constipation, Melena, Hematochezia, Other Genitourinary: negative: Dysuria, Frequency, Incontinence, Hematuria, Retention , Other Musculoskeletal: negative: Neck Pain, Shoulder Pain, Arm Pain, Back Pain, Hand Pain, Leg Pain, Foot Pain, Other Skin: negative: Rash, Lesions, Curtis, Bruising, Other - Medications/Allergies Allergies/Adverse Reactions: Allergies Allergy/AdvReac Type Severity Reaction Status Date / Time No Known Drug Allergies Allergy Verified 09/28/18 01:52 Medications: Current Medications Acetaminophen (Tylenol) 650 mg PO Q4H PRN PRN Reason: Headache/Fever/Mild Pain (1-3) Last Admin: 09/29/18 02:14 Dose: 650 mg Albuterol/Ipratropium (Duoneb) 3 ml NEB [id number] PRN PRN Reason: SOB &/or Wheezing Albuterol/Ipratropium (Duoneb) 3 ml NEB [id number] [facility] Last Admin: 09/30/18 11:17 Dose: 3 ml Artificial Tears (Tears Naturale) 2 drop EA EYE PRN PRN PRN Reason: Dry Eyes Dextrose/Water (Dextrose 50%) 25 gm SLOW IVP PRN PRN PRN Reason: Hypoglycemia Diltiazem HCl (Cardizem Cd) 360 mg PO DAILY [facility] Last Admin: 09/30/18 10:38 Dose: 360 mg Glucagon (Glucagon) 1 mg IM PRN PRN PRN Reason: Hypoglycemia Guaifenesin (Robitussin Sf) 200 mg PO Q4H PRN PRN Reason: Cough Heparin Sodium (Porcine) (Heparin) 5,000 units SC TID [facility] Last Admin: 09/30/18 10:39 Dose: 5,000 units Piperacillin Sod/Tazobactam (Sod 2.25 gm/ Sodium Chloride) 100 mls @ 200 mls/ hr IVPB Q6HR [facility] Last Admin: 09/30/18 06:04 Dose: 100 mls Dextrose/Water (D5w) 1,000 mls @ 0 mls/hr IV .Q0M PRN PRN Reason: Hypoglycemia Dextrose/Water (D5w) 1,000 mls @ 0 mls/hr IV .Q0M PRN PRN Reason: BLOOD SUGAR Last Admin: 09/28/18 17:49 Dose: 1,000 mls Insulin Human Lispro (Humalog) 0 units SC .MILD SLIDING SCALE PRN PRN Reason: Mild Correctional Scale Last Admin: 09/30/18 06:09 Dose: 6 units Loratadine (Claritin) 10 mg PO DAILYPRN PRN PRN Reason: Sinus Symptoms Methylprednisolone Sodium Succinate (Solu-Medrol) 20 mg IVP Q8HR [facility] Last Admin: 09/30/18 06:04 Dose: 20 mg Mineral Oil/White Petrolatum (Eucerin Cream) 0 gm TOP BIDPRN PRN PRN Reason: Dry Skin Miscellaneous Medication (Pharmacy To Dose) 1 each IVPB PRN PRN PRN Reason: Pharmacy to dose Ondansetron HCl (Zofran) 4 mg IVP Q6H PRN PRN Reason: Nausea/Vomiting Oseltamivir Phosphate (Tamiflu) 30 mg PO DAILY [facility] Stop: 10/07/18 09:01 Last Admin: 09/30/18 10:46 Dose: 30 mg Pantoprazole Sodium (Protonix) 40 mg PO DAILY [facility] Last Admin: 09/30/18 10:39 Dose: 40 mg Potassium Chloride (K-Dur) 20 meq PO BID-[facility] Last Admin: 09/30/18 10:38 Dose: 20 meq Saccharomyces Boulardii (Florastor) 250 mg PO DAILY [facility] Last Admin: 09/30/18 10:38 Dose: 250 mg Senna/Docusate Sodium (Senokot S) 2 tab PO BID PRN PRN Reason: Constipation Sodium Chloride (Flush - Normal Saline) 10 ml IVF Q12HR [facility] Last Admin: 09/30/18 10:46 Dose: 10 ml Sodium Chloride (Flush - Normal Saline) 10 ml IVF PRN PRN PRN Reason: Saline Flush Sodium Chloride ([place] Nasal [place] 0.65%) 0 ml EA NARE QIDPRN PRN PRN Reason: Nasal Congestion Throat Lozenges (Cepastat Lozenges) 1 zulema PO Q2H PRN PRN Reason: Sore Throat
--- NOTE | 2018-09-30 12:03 | PRG ---
DATE OF SERVICE: 09/30/2018 SUBJECTIVE: Carmelina Garg says she feels good. She feels like she is ready to move out of the ICU. She does not feel like she will need noninvasive ventilatory support anymore. OBJECTIVE: VITAL SIGNS: Oximetry is 100% on 2 L cannula, respiratory rate is 25, blood pressure 142/79. LUNGS: Almost clear today. HEART: Regular rhythm. S1 and S2 are normal. ABDOMEN: Soft and nontender. LABORATORY DATA: Sodium 136; potassium 4.1; chloride 101; bicarb 23; BUN 29; and creatinine 1.76, down from 3.63. Intake and outputs, positive 144. IMPRESSION: 1. Atrial fibrillation induced pulmonary edema with diastolic dysfunction. 2. Flu A positive swab. I doubt she is currently contagious for flu. 3. Neutropenia. This may be an variant, her CBC should be repeated. 4. Diabetes. 5. Hypertension. 6. Improving acute on chronic kidney disease. She is stable to move out of the critical care unit in my opinion. Job ID: [id number]
[2018-09-30 21:51] LABS: Glucose Accucheck Confirmation 669 mg/dl (70-105)
[2018-09-30] MEDS ORDERED: Insulin Regular 300 UNITS/3 ML VIAL SC SCH (22:45)
[2018-10-01] MEDS: HumaLOG 300 UNITS/3 ML VIAL SC PRN ×6 (01:00→22:56)
[2018-10-01] MEDS ORDERED: Piperacillin/Tazobactam 2.25 GM VIAL ONE (06:07)
[2018-10-01] MEDS: Piperacillin/Tazobactam 2.25 GM in Sodium Chloride 0.9% 100 ML IVPB SCH (06:07)
--- NOTE | 2018-10-01 08:01 | PDOC.CTH ---
Cardiology Progress Note - Subjective Doing well. No current symptoms. - Objective Vital Signs Temp Pulse Resp Pulse Ox 10/01/18 07:26 81 21 H 100 10/01/18 07:00 98.6 F 10/01/18 05:00 98.6 F 10/01/18 02:11 93 23 H 98 10/01/18 01:00 98.4 F 09/30/18 22:10 119 H 18 97 Weight 217 lb 9.54 oz 09/30/18 10/01/18 10/02/18 06:59 06:59 06:59 Intake Total 1799 1569 Output Total 1655 2065 65 Balance 144 -496 -65 - Physical Examination General/Neuro: alert & oriented x3, NAD Neck: carotid US brisk, no JVD present Lungs: CTA, unlabored respirations Heart: PMI normal, RRR Abdomen: NT/ND, soft Extremities: + edema B - Labs Result Diagrams: 09/29/18 04:10 09/30/18 02:01 Troponin/CKMB CK-MB (CK-2) 2.6 ng/mL (0-6.6) 09/27/18 19:30 Troponin I 0.036 ng/mL (< 0.028) H 09/28/18 05:01 - Assessment/Plan afib with RVR Repsiraotry failure Diastolic dysfunction anemia Pt stable Diastolic dysfunction suspected Transfer to floor Hb stable
[2018-10-01] MEDS: hydrALAZINE 25 MG TAB PO SCH ×3 (08:53→22:49)
[2018-10-01] MEDS: Folic Acid 1 MG TAB PO SCH (08:53)
[2018-10-01] MEDS: Apixaban 5 MG TAB PO SCH ×2 (08:53→22:48)
[2018-10-01] MEDS: Saccharomyces boulardii 250 MG CAP PO SCH (08:56)
[2018-10-01] MEDS: Leflunomide 10 mg Tablet PO SCH (08:57)
[2018-10-01] MEDS: Glimepiride 2 MG TAB PO SCH ×2 (08:57→22:48)
[2018-10-01] MEDS: Carvedilol 3.125 MG TAB PO SCH ×2 (08:57→22:48)
[2018-10-01] MEDS: Oseltamivir 6 MG/ML ORAL SUSP PO SCH (08:57)
[2018-10-01] MEDS: Potassium Chloride 20 MEQ TAB PO SCH ×2 (08:57→18:26)
--- NOTE | 2018-10-01 11:45 | PDOC.PN ---
- Subjective Encounter Start Date: 10/01/18 Encounter Start Time: 08:15 Patient seen and examined. No new complaints. No overnight events - Objective Resuscitation Status - Order Detail: 09/28/18 00:20 Resuscitation Status Routine Resuscitation Status: FULL: Full Resuscitation MAR Reviewed: Yes Vital Signs & Weight: Vital Signs (12 hours) Temp Pulse Resp BP BP Pulse Ox 10/01/18 11:10 98.1 F 102 H 18 140/72 93 L 10/01/18 08:53 124 H 142/81 H 10/01/18 07:55 97 10/01/18 07:26 81 21 H 100 10/01/18 07:00 98.6 F 10/01/18 05:00 98.6 F 10/01/18 02:11 93 23 H 98 10/01/18 01:00 98.4 F Weight Weight 217 lb 9.54 oz Most Recent Monitor Data Heart Rate from ECG 96 NIBP 170/77 NIBP BP-Mean 108 Respiration from ECG 32 SpO2 93 I&O: 09/30/18 10/01/18 10/02/18 06:59 06:59 06:59 Intake Total 1799 1569 120 Output Total 1655 2065 300 Balance 144 -496 -180 Result Diagrams: 09/29/18 04:10 09/30/18 02:01 Additional Labs: Accuchecks 10/01/18 10/01/18 09/30/18 07:30 04:15 16:27 POC Glucose 376 H 482 H 480 H EKG Reviewed by me: Yes Phys Exam - Physical Examination Constitutional: NAD HEENT: PERRLA, moist MMs, sclera anicteric Neck: no JVD, supple Respiratory: no wheezing, no rales, no rhonchi Cardiovascular: no significant murmur, irregular Gastrointestinal: soft, non-tender, no distention, positive bowel sounds Musculoskeletal: no edema, pulses present Neurological: non-focal, normal sensation, moves all 4 limbs Lymphatic: no nodes Psychiatric: normal affect, A&O x 3 Skin: no rash, normal turgor Dx/Plan (1) Acute renal failure superimposed on stage 3 chronic kidney disease Code(s): N17.9 - ACUTE KIDNEY FAILURE, UNSPECIFIED; N18.3 - CHRONIC KIDNEY DISEASE, STAGE 3 (MODERATE) Status: Acute (2) Acute respiratory failure with hypoxemia Code(s): J96.01 - ACUTE RESPIRATORY FAILURE WITH HYPOXIA Status: Acute Comment: on bipap (3) Hypotension Status: Acute (4) Acute on chronic diastolic ACC/AHA stage C congestive heart failure Code(s): I50.33 - ACUTE ON CHRONIC DIASTOLIC (CONGESTIVE) HEART FAILURE Status : Acute (5) Influenza A Code(s): J10.1 - FLU DUE TO OTH IDENT INFLUENZA VIRUS W OTH RESP MANIFEST Status: Acute (6) Hypoglycemia associated with type 2 diabetes mellitus Code(s): E11.649 - TYPE 2 DIABETES MELLITUS WITH HYPOGLYCEMIA WITHOUT COMA Status: Acute (7) Demand ischemia Code(s): I24.8 - OTHER FORMS OF ACUTE ISCHEMIC HEART DISEASE Status: Acute (8) Obesity (BMI 30-39.9) Code(s): E66.9 - OBESITY, UNSPECIFIED Status: Chronic (9) Anemia, normocytic normochromic Code(s): D64.9 - ANEMIA, UNSPECIFIED Status: Chronic (10) Atrial fibrillation Code(s): I48.91 - UNSPECIFIED ATRIAL FIBRILLATION Status: Chronic Qualifiers: Atrial fibrillation type: chronic Qualified Code(s): I48.2 - Chronic atrial fibrillation (11) Dyslipidemia Code(s): E78.5 - HYPERLIPIDEMIA, UNSPECIFIED Status: Chronic (12) Chronic anticoagulation Code(s): Z79.01 - [facility] (CURRENT) USE OF ANTICOAGULANTS Status: Chronic - Plan cont current plan of care, continue antibiotics, respiratory therapy * transfer to tele * cardiology following * on po cardizem cd but rate is not controlled * will dc solumedrol * change to po levaquin * start selected home meds * aggressive scale insulin * medication reviewed as below * symptomatic treatment. Review of Systems - Review of Systems ENT: negative: Ear Pain, Ear Discharge, Nose Pain, Nose Discharge, Nose Congestion, Mouth Pain, Mouth Swelling, Throat Pain, Throat Swelling, Other Respiratory: negative: Cough, Dry, Shortness of Breath, Hemoptysis, SOB with Excertion, Pleuritic Pain, Sputum, Wheezing Cardiovascular: negative: chest pain, palpitations, orthopnea, paroxysmal nocturnal dyspnea, edema, light headedness, other Gastrointestinal: negative: Nausea, Vomiting, Abdominal Pain, Diarrhea, Constipation, Melena, Hematochezia, Other Genitourinary: negative: Dysuria, Frequency, Incontinence, Hematuria, Retention , Other Musculoskeletal: negative: Neck Pain, Shoulder Pain, Arm Pain, Back Pain, Hand Pain, Leg Pain, Foot Pain, Other - Medications/Allergies Allergies/Adverse Reactions: Allergies Allergy/AdvReac Type Severity Reaction Status Date / Time No Known Drug Allergies Allergy Verified 09/28/18 01:52 Medications: Current Medications Acetaminophen (Tylenol) 650 mg PO Q4H PRN PRN Reason: Headache/Fever/Mild Pain (1-3) Last Admin: 09/29/18 02:14 Dose: 650 mg Albuterol/Ipratropium (Duoneb) 3 ml NEB [id number] PRN PRN Reason: SOB &/or Wheezing Albuterol/Ipratropium (Duoneb) 3 ml NEB [id number] [facility] Last Admin: 10/01/18 07:26 Dose: 3 ml Apixaban (Eliquis) 5 mg PO BID [facility] Last Admin: 10/01/18 08:53 Dose: 5 mg Artificial Tears (Tears Naturale) 2 drop EA EYE PRN PRN PRN Reason: Dry Eyes Atorvastatin Calcium (Lipitor) 40 mg PO [facility] Carvedilol (Coreg) 3.125 mg PO BID [facility] Last Admin: 10/01/18 08:57 Dose: 3.125 mg Dextrose/Water (Dextrose 50%) 25 gm SLOW IVP PRN PRN PRN Reason: Hypoglycemia Diltiazem HCl (Cardizem Cd) 360 mg PO DAILY [facility] Last Admin: 10/01/18 08:52 Dose: 360 mg Folic Acid (Folvite) 1 mg PO DAILY [facility] Last Admin: 10/01/18 08:53 Dose: 1 mg Glimepiride (Amaryl) 2 mg PO BID [facility] Last Admin: 10/01/18 08:57 Dose: 2 mg Glucagon (Glucagon) 1 mg IM PRN PRN PRN Reason: Hypoglycemia Guaifenesin (Robitussin Sf) 200 mg PO Q4H PRN PRN Reason: Cough Hydralazine HCl (Apresoline) 50 mg PO TID [facility] Last Admin: 10/01/18 08:53 Dose: 50 mg Dextrose/Water (D5w) 1,000 mls @ 0 mls/hr IV .Q0M PRN PRN Reason: Hypoglycemia Dextrose/Water (D5w) 1,000 mls @ 0 mls/hr IV .Q0M PRN PRN Reason: BLOOD SUGAR Last Admin: 09/28/18 17:49 Dose: 1,000 mls Insulin Human Lispro (Humalog) 0 units SC .AGGRESSIVE SLIDING PRN PRN Reason: Aggressive Correctional Scale Last Admin: 10/01/18 07:47 Dose: 13 unit Insulin Human Lispro (Humalog) 0 units SC .BEDTIME SLIDING SC PRN PRN Reason: Bedtime Correctional Scale Leflunomide (Arava) 10 mg PO DAILY [facility] Last Admin: 10/01/18 08:57 Dose: 10 mg Levofloxacin (Levaquin) 500 mg PO 0600 [facility] Loratadine (Claritin) 10 mg PO DAILYPRN PRN PRN Reason: Sinus Symptoms Mineral Oil/White Petrolatum (Eucerin Cream) 0 gm TOP BIDPRN PRN PRN Reason: Dry Skin Miscellaneous Medication (Pharmacy To Dose) 1 each IVPB PRN PRN PRN Reason: Pharmacy to dose Ondansetron HCl (Zofran) 4 mg IVP Q6H PRN PRN Reason: Nausea/Vomiting Oseltamivir Phosphate (Tamiflu) 30 mg PO DAILY [facility] Stop: 10/07/18 09:01 Last Admin: 10/01/18 08:57 Dose: 30 mg Pantoprazole Sodium (Protonix) 40 mg PO DAILY [facility] Last Admin: 10/01/18 08:56 Dose: 40 mg Potassium Chloride (K-Dur) 20 meq PO BID[facility] Last Admin: 10/01/18 08:57 Dose: 20 meq Saccharomyces Boulardii (Florastor) 250 mg PO DAILY [facility] Last Admin: 10/01/18 08:56 Dose: 250 mg Senna/Docusate Sodium (Senokot S) 2 tab PO BID PRN PRN Reason: Constipation Sodium Chloride (Flush - Normal Saline) 10 ml IVF Q12HR [facility] Last Admin: 10/01/18 08:58 Dose: 10 ml Sodium Chloride (Flush - Normal Saline) 10 ml IVF PRN PRN PRN Reason: Saline Flush Sodium Chloride ([place] Nasal [place] 0.65%) 0 ml EA NARE QIDPRN PRN PRN Reason: Nasal Congestion Throat Lozenges (Cepastat Lozenges) 1 zulema PO Q2H PRN PRN Reason: Sore Throat
[2018-10-01 15:49] LABS: Hemoglobin 10.3 g/dL (12.0-16.0); Platelet Count 142 thou/uL (130-400)
--- NOTE | 2018-10-01 21:47 | PRG ---
DATE OF SERVICE: 10/01/2018 SERVICE: Pulmonary Medicine. INTERVAL HISTORY: The patient is doing really well from respiratory standpoint. Breathing comfortably. There has been no interval change to her condition. She denies any shortness of breath, nausea, or vomiting. She has actually been able to get up and walk to bathroom without any difficulty. Otherwise, she essentially feels like she has returned to her usual state of health. PHYSICAL EXAMINATION: VITAL SIGNS: Afebrile. Pulse 80, blood pressure 163/73, respirations 18, and saturation 98% on room air. GENERAL: The patient is awake and alert, in no apparent distress. LUNGS: Excellent air entry with no prolonged expiratory phase. I do not appreciate any crackles. No wheezing or rhonchi are appreciated. HEART: Normal rate and regular. ABDOMEN: Soft, nontender, and nondistended. Bowel sounds are positive. MUSCULOSKELETAL: No cyanosis or clubbing. There is no pitting in the bilateral lower extremities. NEUROLOGIC: Grossly nonfocal. LABORATORY DATA: Hemoglobin 10.3. Creatinine 1.48, continuing to trend downward. Urinalysis is unremarkable. Influenza A is positive, B is negative. Blood cultures x2 are unremarkable. DIAGNOSTIC STUDIES: Echocardiogram demonstrates probable diastolic dysfunction which cannot be more clearly evaluated because of underlying atrial fibrillation. Ejection fraction is normal. Chest x-ray demonstrates interstitial infiltrates. Cephalization is noted. Possible small effusion. Cardiomegaly is present on this portable film. IJ is in good position. ASSESSMENT: 1. Acute hypoxic respiratory failure, improving. 2. [id number] diastolic heart failure. 3. Atrial fibrillation, returned to sinus rhythm. 4. Influenza A. 5. Acute kidney injury. DISCUSSION AND PLAN: From my perspective, the patient is stable for transition out of the hospital. Pulmonary will continue to follow if she remains in-house. She will need to complete a 5-day course of antibiotic and Tamiflu. If she remains in-house, we will continue to follow. Job ID: [id number]
[2018-10-01] MEDS: Atorvastatin Calcium 40 MG TAB PO SCH (22:48)
[2018-10-02] MEDS ORDERED: Labetalol HCl 100 MG/20 ML VIAL SLOW IVP PRN (01:10)
[2018-10-02 06:08] LABS: ALT (SGPT) 33 U/L (8-55); AST (SGOT) 28 U/L (5-34); Albumin 3.3 g/dL (3.5-5.0); Alkaline Phosphatase 106 U/L (40-150); Anion Gap 15 mmol/L (10-20); BUN (Urea Nitrogen) 28 mg/dL (9.8-20.1); Bilirubin, Total 0.3 mg/dL (0.2-1.2); Calc. Creatinine Clearance 71 mL/min (70-130); Calcium 9.2 mg/dL (7.8-10.44); Carbon Dioxide 21 mmol/L (22-29); Chloride 112 mmol/L (98-107); Estimated GFR-MDRD 48; Globulin 3.5 g/dL (2.4-3.5); Glucose 230 mg/dL (70-105); Potassium 4.8 mmol/L (3.5-5.1); Protein, Total 6.8 g/dL (6.0-8.3); Sodium 143 mmol/L (136-145)
[2018-10-02 06:45] LABS: Band 1 % (5-11); Burr Cells SLIGHT = 2-5 cells (100X) (0-1/hpf); Hemoglobin 10.9 g/dL (12.0-16.0); Lymphocytes 24 % (21-51); MDiff Complete? YES; Mean Corpuscular HGB CONC 32.4 g/dL (32.0-36.0); Mean Corpuscular Hemoglobin 29.6 pg (27.0-31.0); Mean Corpuscular Volume 91.3 fL (78.0-98.0); Mean Platelet Volume 8.1 fL (7.4-10.4); Monocytes 3 % (0-10); Neutrophil 72 % (42-75); Platelet Count 163 thou/uL (130-400); RBC Distribution Width 20.8 % (11.5-14.5); Red Blood Cell (RBC) Count 3.68 mill/uL (4.20-5.40); White Blood Cell (WBC) Count 2.5 thou/uL (4.8-10.8)
[2018-10-02] MEDS: Folic Acid 1 MG TAB PO SCH (08:31)
[2018-10-02] MEDS: Apixaban 5 MG TAB PO SCH ×2 (08:31→21:28)
[2018-10-02] MEDS: Potassium Chloride 20 MEQ TAB PO SCH ×2 (08:32→17:14)
[2018-10-02] MEDS: hydrALAZINE 25 MG TAB PO SCH ×3 (08:32→21:29)
[2018-10-02] MEDS: Saccharomyces boulardii 250 MG CAP PO SCH (08:32)
[2018-10-02] MEDS: Leflunomide 10 mg Tablet PO SCH (08:32)
[2018-10-02] MEDS: Carvedilol 3.125 MG TAB PO SCH (08:32)
[2018-10-02] MEDS: Oseltamivir 6 MG/ML ORAL SUSP PO SCH (08:32)
[2018-10-02] MEDS: Glimepiride 2 MG TAB PO SCH ×2 (08:32→21:28)
--- NOTE | 2018-10-02 10:47 | PDOC.PN ---
- Subjective Encounter Start Date: 10/02/18 Encounter Start Time: 08:10 Patient seen and examined. No new complaints. No overnight events - Objective Resuscitation Status - Order Detail: 09/28/18 00:20 Resuscitation Status Routine Resuscitation Status: FULL: Full Resuscitation MAR Reviewed: Yes Vital Signs & Weight: Vital Signs (12 hours) Temp Pulse Resp BP BP Pulse Ox 10/02/18 09:11 84 20 10/02/18 07:10 98.1 F 88 18 164/89 H 92 L 10/02/18 06:00 158/96 H 10/02/18 03:53 98.1 F 91 20 179/88 H 94 L 10/02/18 02:34 107 H 182/94 H 10/02/18 02:27 107 H 18 94 L 10/02/18 00:45 182/94 H 10/01/18 22:49 107 H 187/75 H 10/01/18 22:47 85 16 93 L Weight Weight 210 lb Most Recent Monitor Data Heart Rate from ECG 96 NIBP 170/77 NIBP BP-Mean 108 Respiration from ECG 32 SpO2 93 I&O: 10/01/18 10/02/18 10/03/18 06:59 06:59 06:59 Intake Total 1569 950 Output Total 2065 1000 Balance -496 -50 Result Diagrams: 10/02/18 05:10 10/02/18 05:10 Additional Labs: Accuchecks 10/02/18 10/01/18 10/01/18 06:01 20:21 17:01 POC Glucose 240 H 245 H 250 H 10/01/18 10/01/18 09/30/18 11:35 00:59 06:05 POC Glucose 363 H Greater than 550 H* 401 H EKG Reviewed by me: Yes (afib) Phys Exam - Physical Examination Constitutional: NAD HEENT: PERRLA, moist MMs, sclera anicteric Neck: no JVD, supple Respiratory: no wheezing, no rales, no rhonchi Cardiovascular: no significant murmur, irregular Gastrointestinal: soft, non-tender, no distention, positive bowel sounds Musculoskeletal: no edema, pulses present Neurological: non-focal, normal sensation Lymphatic: no nodes Psychiatric: normal affect, A&O x 3 Skin: no rash, normal turgor Dx/Plan (1) Acute renal failure superimposed on stage 3 chronic kidney disease Code(s): N17.9 - ACUTE KIDNEY FAILURE, UNSPECIFIED; N18.3 - CHRONIC KIDNEY DISEASE, STAGE 3 (MODERATE) Status: Acute (2) Acute respiratory failure with hypoxemia Code(s): J96.01 - ACUTE RESPIRATORY FAILURE WITH HYPOXIA Status: Acute Comment: on bipap (3) Hypotension Status: Acute (4) Acute on chronic diastolic ACC/AHA stage C congestive heart failure Code(s): I50.33 - ACUTE ON CHRONIC DIASTOLIC (CONGESTIVE) HEART FAILURE Status : Acute (5) Influenza A Code(s): J10.1 - FLU DUE TO OTH IDENT INFLUENZA VIRUS W OTH RESP MANIFEST Status: Acute (6) Hypoglycemia associated with type 2 diabetes mellitus Code(s): E11.649 - TYPE 2 DIABETES MELLITUS WITH HYPOGLYCEMIA WITHOUT COMA Status: Acute (7) Demand ischemia Code(s): I24.8 - OTHER FORMS OF ACUTE ISCHEMIC HEART DISEASE Status: Acute (8) Obesity (BMI 30-39.9) Code(s): E66.9 - OBESITY, UNSPECIFIED Status: Chronic (9) Anemia, normocytic normochromic Code(s): D64.9 - ANEMIA, UNSPECIFIED Status: Chronic (10) Atrial fibrillation Code(s): I48.91 - UNSPECIFIED ATRIAL FIBRILLATION Status: Chronic Qualifiers: Atrial fibrillation type: chronic Qualified Code(s): I48.2 - Chronic atrial fibrillation (11) Dyslipidemia Code(s): E78.5 - HYPERLIPIDEMIA, UNSPECIFIED Status: Chronic (12) Chronic anticoagulation Code(s): Z79.01 - [employer] (CURRENT) USE OF ANTICOAGULANTS Status: Chronic (13) Hypokalemia Code(s): E87.6 - HYPOKALEMIA Status: Acute - Plan cont current plan of care, plan discussed w/ family * medication reviewed as below * symptomatic treatment * Dc dos santos * start PT * discussed with family. Review of Systems - Review of Systems ENT: negative: Ear Pain, Ear Discharge, Nose Pain, Nose Discharge, Nose Congestion, Mouth Pain, Mouth Swelling, Throat Pain, Throat Swelling, Other Respiratory: negative: Cough, Dry, Shortness of Breath, Hemoptysis, SOB with Excertion, Pleuritic Pain, Sputum, Wheezing Cardiovascular: negative: chest pain, palpitations, orthopnea, paroxysmal nocturnal dyspnea, edema, light headedness, other Gastrointestinal: negative: Nausea, Vomiting, Abdominal Pain, Diarrhea, Constipation, Melena, Hematochezia, Other Genitourinary: negative: Dysuria, Frequency, Incontinence, Hematuria, Retention , Other Musculoskeletal: negative: Neck Pain, Shoulder Pain, Arm Pain, Back Pain, Hand Pain, Leg Pain, Foot Pain, Other Skin: negative: Rash, Lesions, Ucrtis, Bruising, Other - Medications/Allergies Allergies/Adverse Reactions: Allergies Allergy/AdvReac Type Severity Reaction Status Date / Time No Known Drug Allergies Allergy Verified 09/28/18 01:52 Medications: Current Medications Acetaminophen (Tylenol) 650 mg PO Q4H PRN PRN Reason: Headache/Fever/Mild Pain (1-3) Last Admin: 09/29/18 02:14 Dose: 650 mg Albuterol/Ipratropium (Duoneb) 3 ml NEB [id number] PRN PRN Reason: SOB &/or Wheezing Albuterol/Ipratropium (Duoneb) 3 ml NEB [id number] [facility] Last Admin: 10/02/18 09:11 Dose: 3 ml Apixaban (Eliquis) 5 mg PO BID [facility] Last Admin: 10/02/18 08:31 Dose: 5 mg Artificial Tears (Tears Naturale) 2 drop EA EYE PRN PRN PRN Reason: Dry Eyes Atorvastatin Calcium (Lipitor) 40 mg PO HS [facility] Last Admin: 10/01/18 22:48 Dose: 40 mg Carvedilol (Coreg) 3.125 mg PO BID [facility] Last Admin: 10/02/18 08:32 Dose: 3.125 mg Dextrose/Water (Dextrose 50%) 25 gm SLOW IVP PRN PRN PRN Reason: Hypoglycemia Diltiazem HCl (Cardizem Cd) 360 mg PO DAILY [facility] Last Admin: 10/02/18 08:32 Dose: 360 mg Folic Acid (Folvite) 1 mg PO DAILY [facility] Last Admin: 10/02/18 08:31 Dose: 1 mg Glimepiride (Amaryl) 2 mg PO BID [facility] Last Admin: 10/02/18 08:32 Dose: 2 mg Glucagon (Glucagon) 1 mg IM PRN PRN PRN Reason: Hypoglycemia Guaifenesin (Robitussin Sf) 200 mg PO Q4H PRN PRN Reason: Cough Hydralazine HCl (Apresoline) 50 mg PO TID [facility] Last Admin: 10/02/18 08:32 Dose: 50 mg Dextrose/Water (D5w) 1,000 mls @ 0 mls/hr IV .Q0M PRN PRN Reason: Hypoglycemia Dextrose/Water (D5w) 1,000 mls @ 0 mls/hr IV .Q0M PRN PRN Reason: BLOOD SUGAR Last Admin: 09/28/18 17:49 Dose: 1,000 mls Insulin Human Lispro (Humalog) 0 units SC .AGGRESSIVE SLIDING PRN PRN Reason: Aggressive Correctional Scale Last Admin: 10/01/18 18:26 Dose: 6 unit Insulin Human Lispro (Humalog) 0 units SC .BEDTIME SLIDING SC PRN PRN Reason: Bedtime Correctional Scale Last Admin: 10/01/18 22:56 Dose: 2 unit Labetalol HCl (Labetalol Hcl) 10 mg SLOW IVP Q6H PRN PRN Reason: SPB>=180 Last Admin: 10/02/18 02:34 Dose: 10 mg Leflunomide (Arava) 10 mg PO DAILY [facility] Last Admin: 10/02/18 08:32 Dose: 10 mg Levofloxacin (Levaquin) 500 mg PO 0600 [facility] Last Admin: 10/02/18 05:36 Dose: 500 mg Loratadine (Claritin) 10 mg PO DAILYPRN PRN PRN Reason: Sinus Symptoms Mineral Oil/White Petrolatum (Eucerin Cream) 0 gm TOP BIDPRN PRN PRN Reason: Dry Skin Miscellaneous Medication (Pharmacy To Dose) 1 each IVPB PRN PRN PRN Reason: Pharmacy to dose Ondansetron HCl (Zofran) 4 mg IVP Q6H PRN PRN Reason: Nausea/Vomiting Oseltamivir Phosphate (Tamiflu) 30 mg PO DAILY [facility] Stop: 10/07/18 09:01 Last Admin: 10/02/18 08:32 Dose: 30 mg Pantoprazole Sodium (Protonix) 40 mg PO DAILY [facility] Last Admin: 10/02/18 08:32 Dose: 40 mg Potassium Chloride (K-Dur) 20 meq PO BID[facility] Last Admin: 10/02/18 08:32 Dose: 20 meq Saccharomyces Boulardii (Florastor) 250 mg PO DAILY [facility] Last Admin: 10/02/18 08:32 Dose: 250 mg Senna/Docusate Sodium (Senokot S) 2 tab PO BID PRN PRN Reason: Constipation Sodium Chloride (Flush - Normal Saline) 10 ml IVF Q12HR [facility] Last Admin: 10/02/18 08:33 Dose: 10 ml Sodium Chloride (Flush - Normal Saline) 10 ml IVF PRN PRN PRN Reason: Saline Flush Sodium Chloride ([place] Nasal [place] 0.65%) 0 ml EA NARE QIDPRN PRN PRN Reason: Nasal Congestion Throat Lozenges (Cepastat Lozenges) 1 zulema PO Q2H PRN PRN Reason: Sore Throat
[2018-10-02] MEDS: HumaLOG 300 UNITS/3 ML VIAL SC PRN ×2 (11:30→17:14)
--- NOTE | 2018-10-02 13:38 | PDOC.CTH ---
Cardiology Progress Note - Subjective Patient with cough/congestion. No other complaints. - Objective Vital Signs Temp Pulse Resp BP BP Pulse Ox 10/02/18 11:15 98.2 F 96 16 163/93 H 94 L 10/02/18 09:11 84 20 10/02/18 07:10 98.1 F 88 18 164/89 H 92 L 10/02/18 06:00 158/96 H 10/02/18 03:53 98.1 F 91 20 179/88 H 94 L 10/02/18 02:34 107 H 182/94 H 10/02/18 02:27 107 H 18 94 L Weight 210 lb 10/01/18 10/02/18 10/03/18 06:59 06:59 06:59 Intake Total 1569 950 Output Total 2065 1000 7 Balance -496 -50 -7 - Physical Examination General/Neuro: alert & oriented x3 Neck: no JVD present Lungs: CTA Heart: RRR, other: Abdomen: NT/ND Extremities: other: (no edema) - Telemetry Telemetry Rhythm: SR - Labs Result Diagrams: 10/02/18 05:10 10/02/18 05:10 Troponin/CKMB CK-MB (CK-2) 2.6 ng/mL (0-6.6) 09/27/18 19:30 Troponin I 0.036 ng/mL (< 0.028) H 09/28/18 05:01 - Assessment/Plan 1. AF 2. Respiratory failure 3. Influenza A 4. HTN 5. Diastolic CHF Rhythm stable. Continue cardizem. Increase Coreg.
[2018-10-02] MEDS ORDERED: Carvedilol 3.125 MG TAB PO SCH (14:30)
--- NOTE | 2018-10-02 17:13 | PRG ---
DATE OF SERVICE: 10/02/2018 SERVICE: Pulmonary Medicine. INTERVAL HISTORY: The patient is doing really well from respiratory standpoint. She is on room air. She is essentially returned to her usual state of health. She continues to cough, but is not bringing up any sputum. Otherwise, there has been no interval change to her condition. PHYSICAL EXAMINATION: VITAL SIGNS: Afebrile, pulse 104, blood pressure 177/80, respirations 17, saturation 92% on room air. GENERAL: The patient is awake and alert, in no apparent distress. LUNGS: Slightly decreased air entry with a prolonged expiratory phase. No wheezing is appreciated. HEART: Normal rate, regular. ABDOMEN: Soft, nontender, and nondistended. Bowel sounds are positive. MUSCULOSKELETAL: No cyanosis or clubbing. There is no pitting in the bilateral lower extremities. NEUROLOGIC: Grossly nonfocal. LABORATORY DATA: WBC 2.5, hemoglobin 10.9, and platelets 163,000. Chloride 112 and up trending, sodium 143. Creatinine has improved to 1.36. Basic metabolic profile and liver function studies are essentially unremarkable otherwise. Influenza A is positive. Blood cultures x2 remain unremarkable. ASSESSMENT: 1. Acute hypoxic respiratory failure, resolved. 2. Acute on chronic diastolic heart failure, currently euvolemic. 3. Atrial fibrillation, returned to sinus rhythm. 4. Influenza A. 5. Acute kidney injury, resolving. DISCUSSION AND PLAN: From my perspective, the patient is stable for transition out of the hospital. We will continue her antibiotics, nebulized medications, and steroids. She can complete a 5-day course of these things. After she was discharged from the hospital, she will need to follow up with her primary care physician. Job ID: [id number]
[2018-10-02] MEDS ORDERED: Carvedilol 6.25 MG TAB PO SCH (21:00)
[2018-10-02] MEDS: Atorvastatin Calcium 40 MG TAB PO SCH (21:28)
[2018-10-03] MEDS: Folic Acid 1 MG TAB PO SCH (10:09)
[2018-10-03] MEDS: hydrALAZINE 25 MG TAB PO SCH ×3 (10:09→22:30)
[2018-10-03] MEDS: Oseltamivir 6 MG/ML ORAL SUSP PO SCH (10:09)
[2018-10-03] MEDS: Leflunomide 10 mg Tablet PO SCH (10:10)
[2018-10-03] MEDS: Apixaban 5 MG TAB PO SCH ×2 (10:10→22:31)
[2018-10-03] MEDS: Glimepiride 2 MG TAB PO SCH ×2 (10:11→22:31)
[2018-10-03] MEDS: Potassium Chloride 20 MEQ TAB PO SCH ×2 (10:11→16:56)
[2018-10-03] MEDS: Saccharomyces boulardii 250 MG CAP PO SCH (10:11)
[2018-10-03] MEDS: Carvedilol 6.25 MG TAB PO SCH ×2 (10:11→22:30)
[2018-10-03] MEDS: HumaLOG 300 UNITS/3 ML VIAL SC PRN ×4 (10:19→22:31)
--- NOTE | 2018-10-03 11:09 | DIS ---
DATE OF ADMISSION: 09/28/2018 DATE OF DISCHARGE: 10/03/2018 PRIMARY CARE PHYSICIAN: Dr. Alena Mccormack. DISCHARGE DISPOSITION: Home. PRIMARY DISCHARGE DIAGNOSES: 1. Acute on chronic diastolic ACC stage C congestive heart failure exacerbation. 2. Acute on chronic kidney failure, baseline chronic kidney disease stage 3. 3. Acute respiratory failure with hypoxia resolved. 4. Demand ischemia of myocardium. 5. Hypoglycemia on admission. 6. Hypokalemia, resolved. 7. Influenza A treated while in hospital. 8. Atrial fibrillation with rapid ventricular response. SECONDARY DISCHARGE DIAGNOSES: 1. Obesity with BMI 37. 2. Dyslipidemia. 3. Chronic anticoagulation. 4. Chronic atrial fibrillation. 5. Normocytic normochromic anemia. 6. Diabetes type 2. 7. Chronic kidney disease, stage 3. 8. Chronic stage C diastolic heart failure. PRIMARY PROCEDURE/OPERATION: Central line placement. RADIOLOGICAL INVESTIGATION: Chest x-ray on admission showed pulmonary vascular congestion. Echocardiography showed diastolic dysfunction, atrial fibrillation. SIGNIFICANT LABORATORY DATA: WBC 2.5, hemoglobin 10.9, platelet 163. Sodium 143, potassium 4.8, BUN 28, creatinine 1.36, glucose 230, calcium 9.2, AST 28, ALT 33 , alkaline phosphatase 106, albumin 3.3. TSH 0.4, cortisol 15.90, Procalcitonin 1.1. Urinalysis unremarkable. Blood culture negative. Influenza A positive. DISCHARGE MEDICATION: 1. ProAir HFA 2 puffs q.6 hourly p.r.n. 2. Xanax 1 mg p.o. t.i.d. p.r.n. 3. Eliquis 5 mg p.o. b.i.d. 4. Lipitor 40 mg p.o. daily. 5. Digoxin 125 mcg po daily 6. Folic acid 1 mg p.o. daily. 7. Lasix 40 mg daily. 8. Amaryl 2 mg b.i.d. 9. Hydralazine 50 mg t.i.d. 10. Leflunomide 10 mg daily. 11. Losartan with hydrochlorothiazide 1 tablet daily. 12. Metformin 1000 mg p.o. b.i.d. 13. Cardizem CD 360 mg p.o. daily. 14. Levaquin 500 mg p.o. daily for 3 more days. 15. Coreg 12.5 mg po bid CONTRAINDICATION: None. CODE STATUS: Full code. INPATIENT CONSULT: Cardiology Group was following while in hospital for atrial fibrillation. Pulmonary group was managing BiPAP. TEST RESULTS PENDING ON DISCHARGE: None. ALLERGIES: NO KNOWN DRUG ALLERGIES. DISCHARGE PLAN: Posthospital, the patient will follow up with primary care physician in 1 or 2 weeks. HOSPITAL COURSE: A 58-year-old female with above-mentioned medical problem, who was admitted in our hospital on September 28, 2018. Please see Dr. An's H and P for further details. On admission, the patient was having respiratory distress. She was having acute on chronic diastolic heart failure as well as acute respiratory failure with hypoxia. She was requiring BiPAP. She also had influenza A positive with acute bronchitis. She also had acute on chronic kidney failure. The patient also developed atrial fibrillation with RVR while in hospital. All this problem treated while in the hospital. She was initially required Cardizem drip and subsequently atrial fibrillation was controlled with increasing Cardizem p.o. dose to 360 mg p.o. daily. Multaq was discontinued, because the patient developed congestive heart failure. The patient is also on chronic anticoagulation with Eliquis therapy because of high CHADS2 score. Initially, the patient was hypotensive, but subsequently blood pressure improved and we resumed all her previous medication. The patient was also hypoglycemic on admission and that is why we kept on hold antidiabetic medication and we gave her dextrose solution, but subsequently blood sugar started going up and we resumed all her home medication with better control of blood sugar. The patient was transferred from ICU when she was no longer requiring BiPAP for 2 to 3 midnights and subsequently, we monitored with Physical Therapy while in hospital. She has finished complete course of Tamiflu while in hospital. Her renal function is also improved to baseline. Her respiratory status improved to normal. She does have a normovolemic status from a congestive heart failure point of view. All consultants cleared her for discharge. The patient is seen and examined at bedside today. PHYSICAL EXAMINATION: VITAL SIGNS: Currently, temperature 98.2, pulse 96, irregular, respiratory rate 18, saturation 91% on room air, blood pressure 170/90, weight 210 pounds. GENERAL: The patient is currently alert, awake, in no obvious acute distress. HEENT: Head; normocephalic and atraumatic. Eyes; pupils round, reactive to light. Extraocular muscle intact. ENT; oropharynx within normal limits. Moist mucous membranes. No oral lesion. LUNGS: Clear to auscultation without any rhonchi or rales. CARDIAC: S1 and S2 irregular without any significant murmur. ABDOMEN: Soft and benign. EXTREMITIES: No edema. NEUROLOGICAL: Nonfocal examination. The patient is medically stable for discharge today. Job ID: [id number] MTDD
--- NOTE | 2018-10-03 11:35 | PDOC.PN ---
- Subjective Encounter Start Date: 10/03/18 Encounter Start Time: 08:10 Patient seen and examined. No new complaints. No overnight events her heart rate not well controlled - Objective Resuscitation Status - Order Detail: 09/28/18 00:20 Resuscitation Status Routine Resuscitation Status: FULL: Full Resuscitation MAR Reviewed: Yes Vital Signs & Weight: Vital Signs (12 hours) Temp Pulse Resp BP BP Pulse Ox 10/03/18 10:45 86 16 10/03/18 10:11 173/95 H 10/03/18 10:09 112 H 173/95 H 10/03/18 10:07 112 H 10/03/18 08:00 98.2 F 96 18 185/93 H 91 L 10/03/18 05:42 88 170/90 H 10/03/18 05:29 83 218/100 H 10/03/18 04:00 98.2 F 61 20 95 10/03/18 02:37 98 22 H 92 L 10/03/18 00:20 98.5 F 99 22 H 92 L Weight Weight 210 lb Most Recent Monitor Data Heart Rate from ECG 96 NIBP 170/77 NIBP BP-Mean 108 Respiration from ECG 32 SpO2 93 I&O: 10/02/18 10/03/18 10/04/18 06:59 06:59 06:59 Intake Total 950 850 Output Total 1000 1657 Balance -50 -807 Result Diagrams: 10/02/18 05:10 10/02/18 05:10 Additional Labs: Accuchecks 10/03/18 10/02/18 10/02/18 05:57 20:25 17:00 POC Glucose 221 H 187 H 179 H 10/02/18 09/30/18 11:21 21:19 POC Glucose 206 H Greater than 550 H* EKG Reviewed by me: Yes (afib) Phys Exam - Physical Examination Constitutional: NAD HEENT: PERRLA, moist MMs, sclera anicteric Neck: no JVD, supple Respiratory: no wheezing, no rhonchi Cardiovascular: no significant murmur, irregular Gastrointestinal: soft, non-tender, no distention, positive bowel sounds Musculoskeletal: no edema, pulses present Neurological: non-focal, normal sensation Psychiatric: normal affect, A&O x 3 Skin: no rash, normal turgor Dx/Plan (1) Acute renal failure superimposed on stage 3 chronic kidney disease Code(s): N17.9 - ACUTE KIDNEY FAILURE, UNSPECIFIED; N18.3 - CHRONIC KIDNEY DISEASE, STAGE 3 (MODERATE) Status: Acute (2) Acute respiratory failure with hypoxemia Code(s): J96.01 - ACUTE RESPIRATORY FAILURE WITH HYPOXIA Status: Acute Comment: on bipap (3) Hypotension Status: Acute (4) Acute on chronic diastolic ACC/AHA stage C congestive heart failure Code(s): I50.33 - ACUTE ON CHRONIC DIASTOLIC (CONGESTIVE) HEART FAILURE Status : Acute (5) Influenza A Code(s): J10.1 - FLU DUE TO OTH IDENT INFLUENZA VIRUS W OTH RESP MANIFEST Status: Acute (6) Hypoglycemia associated with type 2 diabetes mellitus Code(s): E11.649 - TYPE 2 DIABETES MELLITUS WITH HYPOGLYCEMIA WITHOUT COMA Status: Acute (7) Demand ischemia Code(s): I24.8 - OTHER FORMS OF ACUTE ISCHEMIC HEART DISEASE Status: Acute (8) Obesity (BMI 30-39.9) Code(s): E66.9 - OBESITY, UNSPECIFIED Status: Chronic (9) Anemia, normocytic normochromic Code(s): D64.9 - ANEMIA, UNSPECIFIED Status: Chronic (10) Atrial fibrillation Code(s): I48.91 - UNSPECIFIED ATRIAL FIBRILLATION Status: Chronic Qualifiers: Atrial fibrillation type: chronic Qualified Code(s): I48.2 - Chronic atrial fibrillation (11) Dyslipidemia Code(s): E78.5 - HYPERLIPIDEMIA, UNSPECIFIED Status: Chronic (12) Chronic anticoagulation Code(s): Z79.01 - INSURANCE PLAN SPECIALIST (CURRENT) USE OF ANTICOAGULANTS Status: Chronic (13) Hypokalemia Code(s): E87.6 - HYPOKALEMIA Status: Acute - Plan cont current plan of care, continue antibiotics, respiratory therapy * pt will finish flu treatment today * her afib rate control is variable, today increased coreg 25 mg po bid * pt wants to go home but heart rate is concerning, will ask if cardiology has any recommendation * medication reviewed as below * symptomatic treatment. Review of Systems - Review of Systems ENT: negative: Ear Pain, Ear Discharge, Nose Pain, Nose Discharge, Nose Congestion, Mouth Pain, Mouth Swelling, Throat Pain, Throat Swelling, Other Respiratory: negative: Cough, Dry, Shortness of Breath, Hemoptysis, SOB with Excertion, Pleuritic Pain, Sputum, Wheezing Cardiovascular: negative: chest pain, palpitations, orthopnea, paroxysmal nocturnal dyspnea, edema, light headedness, other Gastrointestinal: negative: Nausea, Vomiting, Abdominal Pain, Diarrhea, Constipation, Melena, Hematochezia, Other Genitourinary: negative: Dysuria, Frequency, Incontinence, Hematuria, Retention , Other Musculoskeletal: negative: Neck Pain, Shoulder Pain, Arm Pain, Back Pain, Hand Pain, Leg Pain, Foot Pain, Other - Medications/Allergies Allergies/Adverse Reactions: Allergies Allergy/AdvReac Type Severity Reaction Status Date / Time No Known Drug Allergies Allergy Verified 09/28/18 01:52 Medications: Current Medications Acetaminophen (Tylenol) 650 mg PO Q4H PRN PRN Reason: Headache/Fever/Mild Pain (1-3) Last Admin: 09/29/18 02:14 Dose: 650 mg Albuterol/Ipratropium (Duoneb) 3 ml NEB [id number] PRN PRN Reason: SOB &/or Wheezing Albuterol/Ipratropium (Duoneb) 3 ml NEB [id number] [facility] Last Admin: 10/03/18 10:45 Dose: 3 ml Apixaban (Eliquis) 5 mg PO BID [facility] Last Admin: 10/03/18 10:10 Dose: 5 mg Artificial Tears (Tears Naturale) 2 drop EA EYE PRN PRN PRN Reason: Dry Eyes Atorvastatin Calcium (Lipitor) 40 mg PO HS [facility] Last Admin: 10/02/18 21:28 Dose: 40 mg Carvedilol (Coreg) 12.5 mg PO BID [facility] Last Admin: 10/03/18 10:11 Dose: 12.5 mg Dextrose/Water (Dextrose 50%) 25 gm SLOW IVP PRN PRN PRN Reason: Hypoglycemia Diltiazem HCl (Cardizem Cd) 360 mg PO DAILY [facility] Last Admin: 10/03/18 10:10 Dose: 360 mg Folic Acid (Folvite) 1 mg PO DAILY [facility] Last Admin: 10/03/18 10:09 Dose: 1 mg Glimepiride (Amaryl) 2 mg PO BID [facility] Last Admin: 10/03/18 10:11 Dose: 2 mg Glucagon (Glucagon) 1 mg IM PRN PRN PRN Reason: Hypoglycemia Guaifenesin (Robitussin Sf) 200 mg PO Q4H PRN PRN Reason: Cough Hydralazine HCl (Apresoline) 50 mg PO TID [facility] Last Admin: 10/03/18 10:09 Dose: 50 mg Dextrose/Water (D5w) 1,000 mls @ 0 mls/hr IV .Q0M PRN PRN Reason: Hypoglycemia Dextrose/Water (D5w) 1,000 mls @ 0 mls/hr IV .Q0M PRN PRN Reason: BLOOD SUGAR Last Admin: 09/28/18 17:49 Dose: 1,000 mls Insulin Human Lispro (Humalog) 0 units SC .AGGRESSIVE SLIDING PRN PRN Reason: Aggressive Correctional Scale Last Admin: 10/03/18 10:19 Dose: 6 unit Insulin Human Lispro (Humalog) 0 units SC .BEDTIME SLIDING SC PRN PRN Reason: Bedtime Correctional Scale Last Admin: 10/01/18 22:56 Dose: 2 unit Labetalol HCl (Labetalol Hcl) 10 mg SLOW IVP Q6H PRN PRN Reason: SPB>=180 Last Admin: 10/03/18 05:29 Dose: 10 mg Leflunomide (Arava) 10 mg PO DAILY [facility] Last Admin: 10/03/18 10:10 Dose: 10 mg Levofloxacin (Levaquin) 500 mg PO 0600 [facility] Last Admin: 10/03/18 05:27 Dose: 500 mg Loratadine (Claritin) 10 mg PO DAILYPRN PRN PRN Reason: Sinus Symptoms Mineral Oil/White Petrolatum (Eucerin Cream) 0 gm TOP BIDPRN PRN PRN Reason: Dry Skin Ondansetron HCl (Zofran) 4 mg IVP Q6H PRN PRN Reason: Nausea/Vomiting Oseltamivir Phosphate (Tamiflu) 30 mg PO DAILY [facility] Stop: 10/07/18 09:01 Last Admin: 10/03/18 10:09 Dose: 30 mg Pantoprazole Sodium (Protonix) 40 mg PO DAILY [facility] Last Admin: 10/03/18 10:11 Dose: 40 mg Potassium Chloride (K-Dur) [facility] Last Admin: 10/03/18 10:11 Dose: 20 meq Saccharomyces Boulardii (Florastor) 250 mg PO DAILY [facility] Last Admin: 10/03/18 10:11 Dose: 250 mg Senna/Docusate Sodium (Senokot S) 2 tab PO BID PRN PRN Reason: Constipation Sodium Chloride (Flush - Normal Saline) 10 ml IVF Q12HR DANIELA Last Admin: 10/03/18 10:14 Dose: 10 ml Sodium Chloride (Flush - Normal Saline) 10 ml IVF PRN PRN PRN Reason: Saline Flush Sodium Chloride (Dawes Nasal Harper 0.65%) 0 ml EA NARE QIDPRN PRN PRN Reason: Nasal Congestion Throat Lozenges (Cepastat Lozenges) 1 zulema PO Q2H PRN PRN Reason: Sore Throat
[2018-10-03] MEDS ORDERED: cloNIDine 0.1 MG TAB PO PRN (11:38)
[2018-10-03] MEDS ORDERED: Digoxin 0.5 MG/2 ML AMP SLOW IVP SCH ×2 (11:45→12:00)
--- NOTE | 2018-10-03 15:13 | PRG ---
DATE OF SERVICE: 10/03/2018 SUBJECTIVE: Carmelina Garg has no complaints. Her was in the room, I answered all of his questions. She is still intermittently having rapid atrial fibrillation. She was 118 at lunch time. Her blood pressures have been intermittently elevated as high as 170/99 today. OBJECTIVE: LUNGS: Her lungs are clear. HEART: Regular rhythm. ABDOMEN: Soft. LABORATORY DATA: Glucoses were up to 322 this morning. IMPRESSION: 1. Rapid atrial fibrillation with pulmonary edema secondary to diastolic dysfunction. 2. Influenza, no longer felt to be contagious. 3. Hypertension, not quite controlled. 4. Atrial fibrillation, not quite controlled. PLAN: Continue adjustment of medication. Job ID: [id number]
[2018-10-03 16:00] LABS: Hemoglobin 11.3 g/dL (12.0-16.0); Platelet Count 138 thou/uL (130-400)
--- NOTE | 2018-10-03 17:23 | PDOC.CTH ---
Cardiology Progress Note - Subjective The pt was seen and examined. No overnight events. No cardiac complaints. She still has intermittent SOB with mild exertion. - Objective Vital Signs Temp Pulse Pulse Pulse Resp BP BP 10/03/18 16:57 98 144/76 H 10/03/18 15:08 89 20 10/03/18 12:29 133/69 10/03/18 12:26 118 H 10/03/18 11:50 97.4 F L 123 H 18 10/03/18 10:45 86 16 10/03/18 10:15 75 125 H 170/99 H 10/03/18 10:11 173/95 H 10/03/18 10:09 112 H 173/95 H 10/03/18 10:07 112 H 10/03/18 08:00 98.2 F 96 18 10/03/18 05:42 88 10/03/18 05:29 83 218/100 H BP BP BP Pulse Ox 10/03/18 16:57 10/03/18 15:08 10/03/18 12:29 10/03/18 12:26 10/03/18 11:50 130/85 93 L 10/03/18 10:45 10/03/18 10:15 134/81 10/03/18 10:11 10/03/18 10:09 10/03/18 10:07 10/03/18 08:00 185/93 H 92 L 10/03/18 05:42 170/90 H 10/03/18 05:29 Weight 210 lb 10/02/18 10/03/18 10/04/18 06:59 06:59 06:59 Intake Total 950 850 Output Total 1000 1657 Balance -50 -807 - Physical Examination General/Neuro: alert & oriented x3 Neck: no JVD present Lungs: other: (coarses and diminished at bases) Heart: other: (irregular) Abdomen: soft Extremities: other: (No edema) - Telemetry Telemetry Rhythm: SR/AFib - Labs Result Diagrams: 10/03/18 15:37 10/03/18 15:37 Troponin/CKMB CK-MB (CK-2) 2.6 ng/mL (0-6.6) 09/27/18 19:30 Troponin I 0.036 ng/mL (< 0.028) H 09/28/18 05:01 - Assessment/Plan 1. Acute Resp. Failure 2/2 Influenza A - on RA; managed by return clerk 2. Afib with RVR - she was in SR with intermittent Afib till this AM with Diltiazem 360mg qd and Coreg 12.5mg BID; Digoxin was started for re-current Afib with RVR from today. On Eliquis 5mg BID; 3. Acute on Chronic diastolic HF - stable; on Coreg 12.5mg BID; Not on JEAN/ARB 2 /2 NELSON 4. NELSON on CKD - improving; cont. to monitor 5. DM type 2 - managed by PCP 6. Hyperlipidemia - On Lipitor 40mg 7. Anemia - stable 8. Hypokalemia - stable 9. Current smoker - she is willing to stop now. MAR reviewed * Echo on 09/28/2018 showed EF 60-65%, possible diastolic dysfunction, Cont. Afib during the test, mild LA. * Dr Mendez's pt. Waiting for medical record from his office for now. PPt. seen and eval. by me. I agree with the A/P by the BRUSH HOLDER INSPECTOR. She continues to wheeze. She is in/out of atrial fibrillation. Consider resuming Multaq. Review of Systems - Review of Systems Constitutional: reports: no symptoms reported EENTM: reports: no symptoms reported Respiratory: reports: see HPI Cardiac (ROS): reports: no symptoms reported ABD/GI: reports: no symptoms reported : reports: no symptoms reported Musculoskeletal: reports: no symptoms reported
[2018-10-03] MEDS: Digoxin 0.5 MG/2 ML AMP SLOW IVP SCH (18:05)
[2018-10-03] MEDS ORDERED: ALPRAZolam 1 MG TAB PO PRN (22:25)
[2018-10-03] MEDS: Atorvastatin Calcium 40 MG TAB PO SCH (22:29)
[2018-10-04] MEDS ORDERED: Digoxin 0.5 MG/2 ML AMP ONE (00:13)
[2018-10-04] MEDS: Digoxin 0.5 MG/2 ML AMP SLOW IVP SCH (00:17)
[2018-10-04 08:10] LABS: #Eosinphils 0.3 thou/uL (0.0-0.7); #Lymphocytes 0.9 thou/uL (1.20-3.40); #Monocytes 0.3 thou/uL (0.11-0.59); #Neutrophils 2.4 thou/uL (1.40-6.50); %Basophils 0.3 % (0.0-1.0); %Eosinophils 7.5 % (0.0-10.0); %Lymphocytes 23.8 % (21.0-51.0); %Monocytes 6.7 % (0.0-10.0); %Neutrophils 61.7 % (42.0-75.0); Hemoglobin 11.6 g/dL (12.0-16.0); Mean Corpuscular HGB CONC 32.5 g/dL (32.0-36.0); Mean Corpuscular Hemoglobin 29.9 pg (27.0-31.0); Mean Platelet Volume 8.9 fL (7.4-10.4); Platelet Count 139 thou/uL (130-400); RBC Distribution Width 20.3 % (11.5-14.5); White Blood Cell (WBC) Count 3.8 thou/uL (4.8-10.8)
[2018-10-04 08:20] LABS: Anion Gap 13 mmol/L (10-20); BUN (Urea Nitrogen) 19 mg/dL (9.8-20.1); Calc. Creatinine Clearance 72 mL/min (70-130); Calcium 9.6 mg/dL (7.8-10.44); Carbon Dioxide 24 mmol/L (22-29); Chloride 109 mmol/L (98-107); Estimated GFR-MDRD 51; Glucose 158 mg/dL (70-105); Potassium 4.9 mmol/L (3.5-5.1); Sodium 141 mmol/L (136-145)
[2018-10-04] MEDS ORDERED: Clopidogrel Bisulfate 75 MG TAB ONE (08:32)
[2018-10-04] MEDS ORDERED: Digoxin 0.125 MG TAB PO SCH (09:00)
[2018-10-04] MEDS: Apixaban 5 MG TAB PO SCH (09:21)
[2018-10-04] MEDS: Potassium Chloride 20 MEQ TAB PO SCH (09:21)
[2018-10-04] MEDS: Folic Acid 1 MG TAB PO SCH (09:22)
[2018-10-04] MEDS: Carvedilol 6.25 MG TAB PO SCH (09:22)
[2018-10-04] MEDS: Glimepiride 2 MG TAB PO SCH (09:23)
[2018-10-04] MEDS: hydrALAZINE 25 MG TAB PO SCH ×2 (09:23→15:24)
[2018-10-04] MEDS: Leflunomide 10 mg Tablet PO SCH (09:23)
[2018-10-04] MEDS: Oseltamivir 6 MG/ML ORAL SUSP PO SCH (09:23)
[2018-10-04] MEDS: Saccharomyces boulardii 250 MG CAP PO SCH (09:23)
--- NOTE | 2018-10-04 10:27 | PDOC.CTH ---
Cardiology Progress Note - Objective Vital Signs Temp Pulse Resp BP BP Pulse Ox 10/04/18 09:23 88 10/04/18 09:22 88 142/73 H 10/04/18 07:40 97.5 F L 88 18 114/55 L 96 10/04/18 07:37 95 20 92 L 10/04/18 04:00 97.2 F L 80 22 H 134/80 92 L 10/04/18 03:24 87 10/04/18 02:28 87 20 93 L 10/04/18 00:17 103 H 10/04/18 00:00 97.8 F 94 22 H 146/87 H 93 L 10/03/18 22:30 86 142/73 H 10/03/18 22:29 92 20 92 L Weight 210 lb 10/03/18 10/04/18 10/05/18 06:59 06:59 06:59 Intake Total 850 1185 Output Total 1657 1380 Balance -807 -195 - Physical Examination General/Neuro: alert & oriented x3 Neck: no JVD present Lungs: other: (coarse expiratory wheezing.) Heart: other: (irreg.) Abdomen: NT/ND, soft - Labs Result Diagrams: 10/04/18 07:55 10/04/18 07:55 Troponin/CKMB CK-MB (CK-2) 2.6 ng/mL (0-6.6) 09/27/18 19:30 Troponin I 0.036 ng/mL (< 0.028) H 09/28/18 05:01 - Assessment/Plan 1. Acute Resp. Failure 2/2 Influenza A - on RA; managed by aircraft mechanic armament 2. Afib with RVR - she was in SR with intermittent Afib , maintaining Afib. for last 24hrs. Diltiazem 360mg qd and Coreg 12.5mg BID; Digoxin was started for re- current Afib with RVR from today. On Eliquis 5mg BID; 3. Acute on Chronic diastolic HF - stable; on Coreg 12.5mg BID; Not on JEAN/ARB 2 /2 NELSON 4. NELSON on CKD - improving; cont. to monitor 5. DM type 2 - managed by PCP 6. Hyperlipidemia - On Lipitor 40mg 7. Anemia - stable 8. Hypokalemia - stable 9. Current smoker - stopped now. MAR reviewed She would like to go home. The HR is controlled and she can f/u as an outpt. for possible cardioversion. Consider resuming Multaq.
--- NOTE | 2018-10-04 10:55 | PDOC.PN ---
- Subjective Encounter Start Date: 10/04/18 Encounter Start Time: 08:00 Patient seen and examined. No new complaints. No overnight events - Objective Resuscitation Status - Order Detail: 09/28/18 00:20 Resuscitation Status Routine Resuscitation Status: FULL: Full Resuscitation MAR Reviewed: Yes Vital Signs & Weight: Vital Signs (12 hours) Temp Pulse Resp BP BP Pulse Ox 10/04/18 09:23 88 10/04/18 09:22 88 142/73 H 10/04/18 07:40 97.5 F L 88 18 114/55 L 96 10/04/18 07:37 95 20 92 L 10/04/18 04:00 97.2 F L 80 22 H 134/80 92 L 10/04/18 03:24 87 10/04/18 02:28 87 20 93 L 10/04/18 00:17 103 H 10/04/18 00:00 97.8 F 94 22 H 146/87 H 93 L Weight Weight 210 lb Most Recent Monitor Data Heart Rate from ECG 96 NIBP 170/77 NIBP BP-Mean 108 Respiration from ECG 32 SpO2 93 I&O: 10/03/18 10/04/18 10/05/18 06:59 06:59 06:59 Intake Total 850 1185 Output Total 1657 1380 Balance -807 -195 Result Diagrams: 10/04/18 07:55 10/04/18 07:55 Additional Labs: Accuchecks 10/04/18 10/03/18 10/03/18 05:46 20:28 17:16 POC Glucose 133 H 243 H 169 H 10/03/18 10:49 POC Glucose 322 H EKG Reviewed by me: Yes (afib) Phys Exam - Physical Examination Constitutional: NAD HEENT: PERRLA, moist MMs, sclera anicteric Neck: no JVD, supple Respiratory: no wheezing, no rales, no rhonchi Cardiovascular: no significant murmur, irregular Gastrointestinal: soft, non-tender, no distention, positive bowel sounds Musculoskeletal: no edema, pulses present Neurological: non-focal, normal sensation, moves all 4 limbs Psychiatric: normal affect, A&O x 3 Skin: no rash, normal turgor Dx/Plan (1) Acute renal failure superimposed on stage 3 chronic kidney disease Code(s): N17.9 - ACUTE KIDNEY FAILURE, UNSPECIFIED; N18.3 - CHRONIC KIDNEY DISEASE, STAGE 3 (MODERATE) Status: Acute (2) Acute respiratory failure with hypoxemia Code(s): J96.01 - ACUTE RESPIRATORY FAILURE WITH HYPOXIA Status: Acute Comment: on bipap (3) Hypotension Status: Acute (4) Acute on chronic diastolic ACC/AHA stage C congestive heart failure Code(s): I50.33 - ACUTE ON CHRONIC DIASTOLIC (CONGESTIVE) HEART FAILURE Status : Acute (5) Influenza A Code(s): J10.1 - FLU DUE TO OTH IDENT INFLUENZA VIRUS W OTH RESP MANIFEST Status: Acute (6) Hypoglycemia associated with type 2 diabetes mellitus Code(s): E11.649 - TYPE 2 DIABETES MELLITUS WITH HYPOGLYCEMIA WITHOUT COMA Status: Acute (7) Demand ischemia Code(s): I24.8 - OTHER FORMS OF ACUTE ISCHEMIC HEART DISEASE Status: Acute (8) Obesity (BMI 30-39.9) Code(s): E66.9 - OBESITY, UNSPECIFIED Status: Chronic (9) Anemia, normocytic normochromic Code(s): D64.9 - ANEMIA, UNSPECIFIED Status: Chronic (10) Atrial fibrillation Code(s): I48.91 - UNSPECIFIED ATRIAL FIBRILLATION Status: Chronic Qualifiers: Atrial fibrillation type: chronic Qualified Code(s): I48.2 - Chronic atrial fibrillation (11) Dyslipidemia Code(s): E78.5 - HYPERLIPIDEMIA, UNSPECIFIED Status: Chronic (12) Chronic anticoagulation Code(s): Z79.01 - SPOOL SORTER (CURRENT) USE OF ANTICOAGULANTS Status: Chronic (13) Hypokalemia Code(s): E87.6 - HYPOKALEMIA Status: Acute - Plan cont current plan of care * medication reviewed as below * symptomatic treatment * see my discharge summery * digoxin added * coreg increased * will discharge today per pt request. Review of Systems - Review of Systems ENT: negative: Ear Pain, Ear Discharge, Nose Pain, Nose Discharge, Nose Congestion, Mouth Pain, Mouth Swelling, Throat Pain, Throat Swelling, Other Respiratory: negative: Cough, Dry, Shortness of Breath, Hemoptysis, SOB with Excertion, Pleuritic Pain, Sputum, Wheezing Cardiovascular: negative: chest pain, palpitations, orthopnea, paroxysmal nocturnal dyspnea, edema, light headedness, other Gastrointestinal: negative: Nausea, Vomiting, Abdominal Pain, Diarrhea, Constipation, Melena, Hematochezia, Other Genitourinary: negative: Dysuria, Frequency, Incontinence, Hematuria, Retention , Other Musculoskeletal: negative: Neck Pain, Shoulder Pain, Arm Pain, Back Pain, Hand Pain, Leg Pain, Foot Pain, Other - Medications/Allergies Allergies/Adverse Reactions: Allergies Allergy/AdvReac Type Severity Reaction Status Date / Time No Known Drug Allergies Allergy Verified 09/28/18 01:52 Medications: Current Medications Acetaminophen (Tylenol) 650 mg PO Q4H PRN PRN Reason: Headache/Fever/Mild Pain (1-3) Last Admin: 09/29/18 02:14 Dose: 650 mg Albuterol/Ipratropium (Duoneb) 3 ml NEB [id number] PRN PRN Reason: SOB &/or Wheezing Albuterol/Ipratropium (Duoneb) 3 ml NEB [id number] [facility] Last Admin: 10/04/18 07:37 Dose: 3 ml Alprazolam (Xanax) 1 mg PO TIDPRN PRN PRN Reason: Anxiety Last Admin: 10/03/18 22:29 Dose: 1 mg Apixaban (Eliquis) 5 mg PO BID [facility] Last Admin: 10/04/18 09:21 Dose: 5 mg Artificial Tears (Tears Naturale) 2 drop EA EYE PRN PRN PRN Reason: Dry Eyes Atorvastatin Calcium (Lipitor) 40 mg PO HS [facility] Last Admin: 10/03/18 22:29 Dose: 40 mg Carvedilol (Coreg) 12.5 mg PO BID [facility] Last Admin: 10/04/18 09:22 Dose: 12.5 mg Clonidine (Catapres) 0.1 mg PO Q8H PRN PRN Reason: Hypertension Last Admin: 10/03/18 12:29 Dose: 0.1 mg Dextrose/Water (Dextrose 50%) 25 gm SLOW IVP PRN PRN PRN Reason: Hypoglycemia Digoxin (Lanoxin) 0.125 mg PO QAM [facility] Last Admin: 10/04/18 09:22 Dose: 0.125 mg Diltiazem HCl (Cardizem Cd) 360 mg PO DAILY [facility] Last Admin: 10/04/18 09:22 Dose: 360 mg Folic Acid (Folvite) 1 mg PO DAILY [facility] Last Admin: 10/04/18 09:22 Dose: 1 mg Glimepiride (Amaryl) 2 mg PO BID [facility] Last Admin: 10/04/18 09:23 Dose: 2 mg Glucagon (Glucagon) 1 mg IM PRN PRN PRN Reason: Hypoglycemia Guaifenesin (Robitussin Sf) 200 mg PO Q4H PRN PRN Reason: Cough Hydralazine HCl (Apresoline) 50 mg PO TID [facility] Last Admin: 10/04/18 09:23 Dose: 50 mg Dextrose/Water (D5w) 1,000 mls @ 0 mls/hr IV .Q0M PRN PRN Reason: Hypoglycemia Dextrose/Water (D5w) 1,000 mls @ 0 mls/hr IV .Q0M PRN PRN Reason: BLOOD SUGAR Last Admin: 09/28/18 17:49 Dose: 1,000 mls Insulin Human Lispro (Humalog) 0 units SC .AGGRESSIVE SLIDING PRN PRN Reason: Aggressive Correctional Scale Last Admin: 10/03/18 17:33 Dose: 3 unit Insulin Human Lispro (Humalog) 0 units SC .BEDTIME SLIDING SC PRN PRN Reason: Bedtime Correctional Scale Last Admin: 10/03/18 22:31 Dose: 2 unit Labetalol HCl (Labetalol Hcl) 10 mg SLOW IVP Q6H PRN PRN Reason: SPB>=180 Last Admin: 10/03/18 05:29 Dose: 10 mg Leflunomide (Arava) 10 mg PO DAILY [facility] Last Admin: 10/04/18 09:23 Dose: 10 mg Levofloxacin (Levaquin) 500 mg PO 0600 [facility] Last Admin: 10/04/18 05:32 Dose: 500 mg Loratadine (Claritin) 10 mg PO DAILYPRN PRN PRN Reason: Sinus Symptoms Mineral Oil/White Petrolatum (Eucerin Cream) 0 gm TOP BIDPRN PRN PRN Reason: Dry Skin Ondansetron HCl (Zofran) 4 mg IVP Q6H PRN PRN Reason: Nausea/Vomiting Oseltamivir Phosphate (Tamiflu) 30 mg PO DAILY [facility] Stop: 10/07/18 09:01 Last Admin: 10/04/18 09:23 Dose: 30 mg Pantoprazole Sodium (Protonix) 40 mg PO DAILY [facility] Last Admin: 10/04/18 09:23 Dose: 40 mg Potassium [facility] ([facility]Dur) [facility] Last Admin: 10/04/18 09:21 Dose: 20 meq Saccharomyces Boulardii (Florastor) 250 mg PO DAILY [facility] Last Admin: 10/04/18 09:23 Dose: 250 mg Senna/Docusate Sodium (Senokot S) 2 tab PO BID PRN PRN Reason: Constipation Sodium Chloride (Flush - Normal Saline) 10 ml IVF Q12HR [facility] Last Admin: 10/04/18 09:23 Dose: 10 ml Sodium Chloride (Flush - Normal Saline) 10 ml IVF PRN PRN PRN Reason: Saline Flush Last Admin: 10/03/18 18:08 Dose: 10 ml Sodium Chloride ([place] Nasal [place] 0.65%) 0 ml EA NARE QIDPRN PRN PRN Reason: Nasal Congestion Throat Lozenges (Cepastat Lozenges) 1 zulema PO Q2H PRN PRN Reason: Sore Throat
--- NOTE | 2018-10-04 12:22 | DIS ---
DATE OF ADMISSION: 09/28/2018 DATE OF DISCHARGE: 10/04/2018 ADDENDUM: This patient was planned for discharge yesterday, but because of her atrial fibrillation with rapid ventricular response, we have to keep her overnight. During this period, we started digoxin and we started Coreg. With that, the patient's rate is under control. At this point, Cardiology recommending outpatient followup for possible cardioversion, if needed. The patient is extremely curious to go home today and that is why based on her request, we are discharging her home. The patient is seen and examined at bedside today. Please see my progress note from today for further details. All new medication prescription sent to her pharmacy. Job ID: [id number]
[2018-10-04] MEDS: HumaLOG 300 UNITS/3 ML VIAL SC PRN (12:44)
[2018-10-04 15:03] VITALS: BP 110/55; TEMP 97.4
--- NOTE | 2018-10-04 15:18 | PRG ---
DATE OF SERVICE: 10/04/2018 rate controlled today. Apparently, the plan is to follow her closely as an outpatient. She has had no new problems reported. She is tentatively scheduled for discharge today. I will see her as needed in the future. Job ID: [id number]
== END 2018-10-04 15:29 | disposition home or self-care (01) | DRG 291 ==
LOC: ERS 18:26 → CCU 09-28 01:10 → 2NO 10-01 11:06
PROVIDERS: ADMIT Hospitalist; ATTEND Hospitalist
PROC: 02HV33Z Insertion of Infusion Device into Superior Vena Cava, Percutaneous Approach (ICD-10-PCS; 2018-09-27)
PROC: 5A09457 Assistance with Respiratory Ventilation, 24-96 Consecutive Hours, Continuous Positive Airway Pressure (ICD-10-PCS; principal; 2018-09-28)
DX: I13.0 Hypertensive heart and chronic kidney disease with heart failure and stage 1 through stage 4 chronic kidney disease, or unspecified chronic kidney disease (principal); J96.01 Acute respiratory failure with hypoxia; I50.33 Acute on chronic diastolic (congestive) heart failure; N17.9 Acute kidney failure, unspecified; R57.9 Shock, unspecified; E87.2 Acidosis; I24.8 Other forms of acute ischemic heart disease; E11.22 Type 2 diabetes mellitus with diabetic chronic kidney disease; E11.649 Type 2 diabetes mellitus with hypoglycemia without coma; N18.3 Chronic kidney disease, stage 3 (moderate); I48.2 Chronic atrial fibrillation; E78.5 Hyperlipidemia, unspecified; J10.1 Influenza due to other identified influenza virus with other respiratory manifestations; D64.9 Anemia, unspecified; J20.9 Acute bronchitis, unspecified; E66.9 Obesity, unspecified; Z68.37 Body mass index [BMI] 37.0-37.9, adult; F41.9 Anxiety disorder, unspecified; F32.9 Major depressive disorder, single episode, unspecified; F17.210 Nicotine dependence, cigarettes, uncomplicated; E87.6 Hypokalemia; Z79.01 Long term (current) use of anticoagulants; Z79.84 Long term (current) use of oral hypoglycemic drugs; Z79.899 Other long term (current) drug therapy
CPT/HCPCS: 36415; 36416; 36556; 51702; 71045; 80048; 80053; 80202; 81003; 81015; 82533; 82550; 82553; 82565; 82805; 83605; 83735; 83880; 84145; 84443; 84484; 85014; 85018; 85025; 85049; 87040; 87804; 93005; 93306; 93798; 94640; 94660; 96365; 96366; 96367; 96368; 96375; A4353; J1160; J1644; J1815; J1940; J2270; J2543; J2920; J3370; J3475; J3480; J3490; J7050; J7620

== ENCOUNTER 2018-10-22 23:25 | Inpatient (IN) | payer OTHER ==
[2018-10-23 00:15] LABS: Hemoglobin 6.6 g/dL (12.0-16.0); Mean Corpuscular HGB CONC 32.2 g/dL (32.0-36.0); Mean Corpuscular Hemoglobin 29.7 pg (27.0-31.0); Mean Corpuscular Volume 92.3 fL (78.0-98.0); RBC Distribution Width 18.9 % (11.5-14.5); Red Blood Cell (RBC) Count 2.24 mill/uL (4.20-5.40); White Blood Cell (WBC) Count 1.8 thou/uL (4.8-10.8)
[2018-10-23 00:36] LABS: Anisocytosis SLIGHT = 6-15 cells (100X) (0-5/hpf); Hypochromia SLIGHT = 6-15 cells (100X) (0-5/hpf); Lymphocytes 36 % (21-51); MDiff Complete? YES; Mean Platelet Volume 7.9 fL (7.4-10.4); Neutrophil 64 % (42-75); Platelet Count 78 thou/uL (130-400); Platelet Morphology Comment Appears Decreased; Polychromasia SLIGHT = 2-3 cells (100X) (0-2/hpf)
[2018-10-23 00:41] LABS: ALT (SGPT) 18 U/L (8-55); AST (SGOT) 12 U/L (5-34); Albumin 2.8 g/dL (3.5-5.0); Alkaline Phosphatase 100 U/L (40-150); Anion Gap 15 mmol/L (10-20); BUN (Urea Nitrogen) 31 mg/dL (9.8-20.1); Bilirubin, Total 0.4 mg/dL (0.2-1.2); Calc. Creatinine Clearance 0 mL/min (70-130); Calcium 8.3 mg/dL (7.8-10.44); Carbon Dioxide 23 mmol/L (22-29); Chloride 107 mmol/L (98-107); Estimated GFR-MDRD 23; Globulin 2.9 g/dL (2.4-3.5); Glucose 96 mg/dL (70-105); Protein, Total 5.7 g/dL (6.0-8.3); Sodium 142 mmol/L (136-145)
[2018-10-23 00:48] LABS: Potassium 2.9 mmol/L (3.5-5.1)
[2018-10-23] MEDS ORDERED: Potassium Bicarbonate/Cit Ac 25 MEQ TAB PO SCH (01:30)
[2018-10-23] MEDS ORDERED: Pantoprazole 40 MG VIAL IVP SCH (01:45)
[2018-10-23] MEDS ORDERED: Furosemide 20 MG/2 ML VIAL SLOW IVP SCH (01:45)
[2018-10-23] MEDS ORDERED: Potassium Chloride 40 MEQ in Sodium Chloride 0.9% 500 ML IVPB SCH (02:00)
--- NOTE | 2018-10-23 02:40 | HP ---
PRIMARY CARE PHYSICIAN: Glendy Mccormack MD CHIEF COMPLAINT: Altered mental status and low blood pressure. HISTORY OF PRESENT ILLNESS: The patient is a 58-year-old female with past medical history of atrial fibrillation, paroxysmal; diabetes type 2, hypertension, hyperlipidemia, CHF, who presents to the emergency department from home for altered mental status concern. Per , the patient has decreased p.o. intake. Her blood glucose was 80 in the morning and he gave the patient's home diabetes medication which included metformin and glimepiride. This evening, the patient started to be confused and was not making sense and that is why the EMS for called. The patient was noted to have blood glucose in the 20s and was also noted to be having low blood pressure. The patient was given D50 amp and oral glucose, which improved her blood glucose. The patient was given IV fluids. The patient reports that she has been noticing bright red blood whenever she wipes and notes in the toilet. The patient is unsure how long has been going on. The patient denies any history of such bleeding in the past. The patient reports that she saw her PCP and they have been continuing her medications. The patient was recently discharged from the hospital for acute on chronic diastolic heart failure, NELSON, and acute respiratory failure. The patient was also noted to be in atrial fibrillation with RVR. The patient has been on Eliquis for a long time. The patient follows up with her dredge mate in [place], Dr. Mendez. The patient was seen in the ER and she was alert and was noted to be talking to me. The patient's blood pressure has had improved to the systolic of 100s. PAST MEDICAL HISTORY: Atrial fibrillation, chronic diastolic heart failure, CKD , diabetes type 2, hypertension, hyperlipidemia. PAST SURGICAL HISTORY: The patient denies any surgeries in the past. SOCIAL HISTORY: The patient denies any alcohol use. She is a current tobacco user. Denies any illicit drugs. FAMILY HISTORY: Reports history of diabetes. CURRENT MEDICATIONS: Hydralazine, diltiazem, losartan, hydrochlorothiazide, metformin, leflunomide, carvedilol, clonidine, atorvastatin, glimepiride, Eliquis, Multaq, furosemide, and folic acid. REVIEW OF SYSTEMS: A 10-point review of systems negative other than mentioned in the HPI. The patient denies any diarrhea, abdominal pain, chest pain, or shortness of breath at this point. PHYSICAL EXAMINATION: VITAL SIGNS: Blood pressure 92/42, heart rate 70, respiration rate 22, and O2 saturation 98% on room air. GENERAL: The patient is alert, but seemed to be a bit fatigued. HEAD: Atraumatic. EARS, NOSE, AND THROAT: No bleeding, discharge, or exudate noted. NECK: No lymphadenopathy noted. CARDIOVASCULAR: Regular rate and rhythm. No murmurs, rubs, or gallops. RESPIRATION: Clear bilaterally. No wheezes. ABDOMEN: No tenderness. Bowel sounds positive. : Digital rectal examination has been performed with the worsted winder JOEL Rajput. No blood noted on CARL. EXTREMITIES: Lower extremities, no edema noted. SKIN: No rashes. NEURO: The patient noted to be alert. DIAGNOSTIC STUDIES: LABORATORY RESULTS: EKG interpreted by the ER physician, ventricular paced with frequent atrial paced complexes, QRS 76, QT/QTC 438/511. LABORATORY DATA: Labs reviewed. CBC, white blood cell count 1.8, RBC 2.24, hemoglobin 6.6, hematocrit 20.6, platelets 78. Sodium 142, potassium 2.9, chloride 107, carbon dioxide 23, BUN 31, creatinine 2.6. Troponin negative. ASSESSMENT AND PLAN: 1. Acute hypotension. 2. Acute GI bleed. 3. Hypoglycemia. 4. Type 2 diabetes. 5. Hypokalemia. 6. Hypertension. 7. Chronic congestive heart failure 8. Hx of Afib PLAN: 1. The patient's acute hypertension is likely due to acute blood loss. The patient's hemoglobin 2 weeks ago was 11 and now it is 6.6. Blood pressure improved with IV fluid. We will give 2 units of blood with Lasix in between the units. Benadryl and Tylenol p.r.n. ordered. We will keep the patient n.p.o. at this point. GI consult placed for a.m. We will trend hemoglobin q.6H. We will admit to intermediate care unit. 2. Acute kidney injury. The patient's acute kidney injury is likely due to hypoperfusion. The patient likely has acute tubular necrosis on admission. The patient's creatinine was around 1.3 at last discharge. Her creatinine right now is 2.6. Cont D5 NS due to hypoglycemia 3. Pancytopenia. Unclear etiology of pancytopenia, but suspect could be due to her acute symptoms. The patient's platelets are 78. Her platelets at last discharge were 139. The patient's white blood cell count is 1.6 on admission. We will continue to trend. The patient may need Hematology consult if her white blood cell and PLT count does not improve. We will hold Eliquis at this point due to GI bleed. 4. Consider discussion with Cardiology to see if the patient needs to continue Eliquis. 5. We will hold p.o. diabetic medication. SSI. Will need to monitor for hypoglycemic event in setting on NELSON and continual PO meds use with low BG. educated to avoid PO hypoglycemic agent if BG is < 110 6. Hypoglycemia protocol. We will start the patient on D5 normal saline at this point to improve her blood glucose. 7. We will hold the patient's hypertensive medication at this point. We will order hydralazine p.r.n. for blood pressure greater than 170. 8. We will hold Lasix at this point. We will be giving a small dose of Lasix in between transfusions. The patient's Lasix will need to be restarted once the blood pressure improves given that she has history of congestive heart failure. The patient is full code. 9. Medical power of estate planning attorney, . 10. DVT prophylaxis, SCDs only. Job ID: [id number] MTDD
[2018-10-23] MEDS ORDERED: Bisacodyl 5 MG TAB PO PRN (03:07)
[2018-10-23] MEDS ORDERED: diphenhydrAMINE 25 MG CAP PO PRN (03:07)
[2018-10-23] MEDS ORDERED: Acetaminophen 325 MG TAB PO PRN (03:07)
[2018-10-23] MEDS ORDERED: Dextrose 5% in Water 1,000 ML IV PRN (03:07)
[2018-10-23] MEDS ORDERED: Ondansetron PF 4 MG/2 ML Vial IVP PRN (03:07)
[2018-10-23] MEDS ORDERED: hydrALAZINE 20 MG/ML VIAL SLOW IVP PRN (03:07)
[2018-10-23 03:36] LABS: Troponin I 0.018 ng/mL (< 0.028)
[2018-10-23] MEDS ORDERED: Pantoprazole 40 MG VIAL ONE (03:57)
[2018-10-23 04:08] LABS: Hemoglobin 7.2 g/dL (12.0-16.0); Hypochromia SLIGHT = 6-15 cells (100X) (0-5/hpf); Lymphocytes 50 % (21-51); MDiff Complete? YES; Mean Corpuscular HGB CONC 32.8 g/dL (32.0-36.0); Mean Corpuscular Hemoglobin 30.7 pg (27.0-31.0); Mean Corpuscular Volume 93.6 fL (78.0-98.0); Mean Platelet Volume 8.6 fL (7.4-10.4); Monocytes 4 % (0-10); Neutrophil 46 % (42-75); Platelet Count 90 thou/uL (130-400); Platelet Morphology Comment Appears Decreased; Polychromasia SLIGHT = 2-3 cells (100X) (0-2/hpf); Red Blood Cell (RBC) Count 2.33 mill/uL (4.20-5.40); White Blood Cell (WBC) Count 2.1 thou/uL (4.8-10.8)
[2018-10-23 04:23] LABS: Anion Gap 17 mmol/L (10-20); BUN (Urea Nitrogen) 30 mg/dL (9.8-20.1); Calc. Creatinine Clearance 0 mL/min (70-130); Calcium 8.6 mg/dL (7.8-10.44); Carbon Dioxide 20 mmol/L (22-29); Chloride 108 mmol/L (98-107); Estimated GFR-MDRD 25; Potassium 3.4 mmol/L (3.5-5.1); Sodium 142 mmol/L (136-145)
[2018-10-23 04:24] LABS: Glucose 50 mg/dL (70-105)
[2018-10-23] MEDS ORDERED: Dextrose 50% Abboject 50 ML SYRINGE ONE (04:42)
[2018-10-23 06:53] LABS: Troponin I 0.016 ng/mL (< 0.028)
[2018-10-23] MEDS ORDERED: Furosemide 20 MG/2 ML VIAL ONE (08:15)
--- NOTE | 2018-10-23 08:42 | RAD ---
PORTABLE UPRIGHT FRONTAL CHEST RADIOGRAPH: DATE: 10/23/2018. COMPARISON: 09/29/2018. History Altered mental status, hypoglycemia, cough. FINDINGS: There is mild pulmonary vascular prominence. There is stable prominence of the cardiac silhouette. No pneumothorax, focal consolidation, or alveolar edema. IMPRESSION: Prominent cardiac silhouette with pulmonary vascular congestion. POS: DIANE
[2018-10-23 09:36] LABS: Hemoglobin 9.8 g/dL (12.0-16.0); Mean Corpuscular HGB CONC 33.9 g/dL (32.0-36.0); Mean Corpuscular Hemoglobin 29.6 pg (27.0-31.0); Mean Corpuscular Volume 87.6 fL (78.0-98.0); Mean Platelet Volume 8.1 fL (7.4-10.4); Platelet Count 85 thou/uL (130-400); White Blood Cell (WBC) Count 2.3 thou/uL (4.8-10.8)
[2018-10-23 10:02] LABS: Anisocytosis MODERATE=16-30 cells (100X) (0-5/hpf); Burr Cells SLIGHT = 2-5 cells (100X) (0-1/hpf); Elliptocytes SLIGHT = 2-5 cells (100X) (0-1/hpf); Eosinophils 8 % (0-10); Hypochromia SLIGHT = 6-15 cells (100X) (0-5/hpf); Lymphocytes 69 % (21-51); MDiff Complete? YES; Microcytosis SLIGHT = 6-15 cells (100X) (0-5/hpf); Monocytes 3 % (0-10); Neutrophil 12 % (42-75); Ovalocytes SLIGHT = 2-5 cells (100X) (0-1/hpf); Platelet Morphology Comment Appears Decreased; Polychromasia SLIGHT = 2-3 cells (100X) (0-2/hpf); Reactive Lymphocytes 8 % (0-10)
[2018-10-23] MEDS: Dextrose 5 % And 0.9 % NaCl 1,000 ML IV SCH (10:26)
[2018-10-23] MEDS: Dextrose 50% Abboject 50 ML SYRINGE SLOW IVP PRN (11:00)
--- NOTE | 2018-10-23 11:30 | PDOC.PN ---
- Subjective Encounter Start Date: 10/23/18 Encounter Start Time: 11:15 Subjective: f/u for AMS due to hypoglycemia and acute blood loss anemia in -: context of Eliquis. s/p 2u PRBC's in ED, D50 and Lasix. States last -: meal was 10/22 in pm. - Objective Resuscitation Status - Order Detail: 10/23/18 01:48 Resuscitation Status Routine Resuscitation Status: FULL: Full Resuscitation MAR Reviewed: Yes Vital Signs & Weight: Most Recent Monitor Data Heart Rate from ECG 98 NIBP 111/83 NIBP BP-Mean 92 Respiration from ECG 32 SpO2 93 Result Diagrams: 10/23/18 09:07 10/23/18 03:31 Additional Labs: Accuchecks 10/23/18 10/23/18 10/23/18 09:37 07:24 06:19 POC Glucose 110 71 106 10/23/18 10/23/18 10/23/18 04:31 01:45 00:27 POC Glucose 45 L* 81 87 10/22/18 23:32 POC Glucose 111 H Laboratory Tests 10/23/18 10/23/18 10/23/18 00:08 00:08 03:31 WBC 1.8 L 2.1 L Hgb 6.6 L 7.2 L Plt Count 78 L 90 L Potassium 2.9 L* Creatinine 2.60 H Radiology Reviewed by me: Yes (PCXR - pulm vasc prominence) EKG Reviewed by me: Yes (Tele - A-fib in 90's) Phys Exam - Physical Examination Constitutional: NAD alert, responsive HEENT: PERRLA, sclera anicteric, oral pharynx no lesions Neck: no nodes, no JVD, supple, full ROM bilat wheezing and coarse sounds in bases S1, S2 Cardiovascular: no significant murmur, no rub, gallop, irregular Gastrointestinal: soft, non-tender, no distention, positive bowel sounds Musculoskeletal: no edema, pulses present Neurological: normal sensation, moves all 4 limbs Psychiatric: A&O x 3 Skin: normal turgor, cap refill <2 seconds Deviation from normal: [place] with clear urine Dx/Plan (1) Acute metabolic encephalopathy due to hypoglycemia Code(s): G93.41 - METABOLIC ENCEPHALOPATHY; E16.2 - HYPOGLYCEMIA, UNSPECIFIED Status: Acute Comment: Improved after correction of hypoglycemia, serial glucose monitoring, hold all DM medications, continue D5NS IV (2) GI bleed Code(s): K92.2 - GASTROINTESTINAL HEMORRHAGE, UNSPECIFIED Status: Acute Comment: Suspected due to chronic Eliquis, GI consult, PPI IV, serial H/H, s/p 2u PRBC's, hold all anticoagulation (3) Acute blood loss anemia Code(s): D62 - ACUTE POSTHEMORRHAGIC ANEMIA Status: Acute Comment: See above , repeat CBC in am, PPI (4) Pancytopenia Code(s): D61.818 - OTHER PANCYTOPENIA Status: Chronic Comment: ? etiology, consider Hematology evaluation, repeat CBC (5) Acute renal failure superimposed on stage 3 chronic kidney disease Code(s): N17.9 - ACUTE KIDNEY FAILURE, UNSPECIFIED; N18.3 - CHRONIC KIDNEY DISEASE, STAGE 3 (MODERATE) Status: Acute Comment: Likely volume mediated with ATN due to GI bleeding, low-volume IVF's, avoid nephrotoxic meds and limit contrast exposure (6) Atrial fibrillation Code(s): I48.91 - UNSPECIFIED ATRIAL FIBRILLATION Status: Chronic Qualifiers: Atrial fibrillation type: chronic Qualified Code(s): I48.2 - Chronic atrial fibrillation Comment: Rate-controlled currently, continue Coreg, Digoxin (7) Chronic anticoagulation Code(s): Z79.01 - THERAPEUTIC RADIOLOGIST (CURRENT) USE OF ANTICOAGULANTS Status: Chronic Comment: Eliquis x 2yrs, hold anticoagulation due to GI bleeding - Plan respiratory therapy, DVT proph w/SCDs Continue supportive mgmt -: Continue D5NS IV -: Clear liquids -: GI consult pending -: Add Duonebs q4h * AM lab: CMP, CBC * Lasix 20mg IV BID
[2018-10-23] MEDS ORDERED: CCU Electrolyte Replacement 1 EACH FS ONE (11:41)
[2018-10-23] MEDS ORDERED: Potassium Chloride 40 MEQ in Sodium Chloride 0.9% 250 ML 250 ML IVPB PRN (11:42)
[2018-10-23] MEDS ORDERED: Potassium Phosphate 15 MMOL in Sodium Chloride 0.9% 250 ML 250 ML IV PRN (11:42)
[2018-10-23] MEDS ORDERED: Potassium Phosphate 9 MMOL in Sodium Chloride 0.9% 100 ML IVPB PRN (11:42)
[2018-10-23] MEDS ORDERED: Potassium Phosphate 12 MMOL in Sodium Chloride 0.9% 250 ML 250 ML IV PRN (11:42)
[2018-10-23] MEDS ORDERED: Magnesium Oxide 400 MG TAB PO PRN (11:42)
[2018-10-23] MEDS ORDERED: CCU ELECTROLYTE REPLACEMENT PROTOCOL FS PRN (11:42)
[2018-10-23] MEDS ORDERED: Magnesium 2 GM/NS 0.9% 100 ML 2 GM in Premix Bag 1 BAG IVPB PRN (11:42)
[2018-10-23] MEDS ORDERED: Potassium Chloride 20 MEQ TAB PO PRN (11:42)
[2018-10-23] MEDS ORDERED: Potassium Chloride 40 MEQ in Premix Bag 1 BAG IVPB PRN (11:42)
[2018-10-23] MEDS: Sodium Chloride 0.9% (PF) 10 ML VIAL FS SCH ×2 (12:19→20:24)
[2018-10-23] MEDS: Furosemide 20 MG/2 ML VIAL SLOW IVP SCH (13:10)
[2018-10-23 14:51] LABS: Hemoglobin 10.1 g/dL (12.0-16.0); Mean Corpuscular Hemoglobin 30.1 pg (27.0-31.0); Mean Corpuscular Volume 88.6 fL (78.0-98.0); Platelet Count 82 thou/uL (130-400); RBC Distribution Width 17.6 % (11.5-14.5); Red Blood Cell (RBC) Count 3.36 mill/uL (4.20-5.40); White Blood Cell (WBC) Count 2.2 thou/uL (4.8-10.8)
[2018-10-23] MEDS: ALPRAZolam 1 MG TAB PO SCH ×2 (15:04→20:21)
[2018-10-23 15:15] LABS: Anisocytosis SLIGHT = 6-15 cells (100X) (0-5/hpf); Eosinophils 11 % (0-10); Lymphocytes 70 % (21-51); MDiff Complete? YES; Monocytes 2 % (0-10); Neutrophil 14 % (42-75); Nucleated RBC 6 % (0); Ovalocytes SLIGHT = 2-5 cells (100X) (0-1/hpf); Platelet Morphology Comment Appears Decreased; Polychromasia SLIGHT = 2-3 cells (100X) (0-2/hpf); Reactive Lymphocytes 2 % (0-10)
[2018-10-23 17:21] VITALS: BMI 376.8
[2018-10-23] MEDS ORDERED: GoLYTELY 4,000 ml Bottle PO SCH (19:45)
[2018-10-23 20:20] LABS: Hemoglobin 9.7 g/dL (12.0-16.0); Mean Corpuscular HGB CONC 34.3 g/dL (32.0-36.0); Mean Corpuscular Hemoglobin 30.3 pg (27.0-31.0); Mean Corpuscular Volume 88.4 fL (78.0-98.0); Mean Platelet Volume 7.9 fL (7.4-10.4); Platelet Count 79 thou/uL (130-400); RBC Distribution Width 17.6 % (11.5-14.5); Red Blood Cell (RBC) Count 3.21 mill/uL (4.20-5.40); White Blood Cell (WBC) Count 2.2 thou/uL (4.8-10.8)
[2018-10-23] MEDS: Carvedilol 6.25 MG TAB PO SCH (20:23)
[2018-10-23] MEDS: Pantoprazole 40 MG VIAL IVP SCH (20:24)
[2018-10-23 20:35] LABS: Band 1 % (5-11); Eosinophils 9 % (0-10); Lymphocytes 75 % (21-51); MDiff Complete? YES; Monocytes 4 % (0-10); Neutrophil 9 % (42-75); Nucleated RBC 3 % (0); Platelet Morphology Comment Appears Decreased
[2018-10-24] MEDS: Dextrose 5 % And 0.9 % NaCl 1,000 ML IV SCH (00:48)
--- NOTE | 2018-10-24 00:52 | CON ---
DATE OF CONSULTATION: 10/23/2018 REASON FOR CONSULTATION: Hematochezia. CONSULTING PHYSICIAN: Prasad Beltran MD HISTORY OF PRESENT ILLNESS: The patient is a 58-year-old female with past medical history of paroxysmal atrial fibrillation, diabetes, hypertension, hyperlipidemia, congestive heart failure, chronic kidney disease, and rheumatoid arthritis, presenting with complaints of hematochezia. Initially, the patient was brought to the ER with complaints of altered mental status in surrounding decreased p.o. intake and hypoglycemia. However, upon further evaluation of the patient, she also endorsed having maroon-colored stools that have been present over the last week, having approximately 2 to 3 bowel movements per day that were solid to semi-solid in consistency and the blood that was seen in both the toilet and on the toilet paper was maroon in coloration with the blood mixed in with the stool, not necessarily coating the stool. Otherwise, she denies any nausea, vomiting, fevers, chills, abdominal pain, hematemesis, or overt melena. Of note, the patient was recently discharged from the hospital in relation to acute on chronic diastolic heart failure exacerbation, acute kidney injury, and acute respiratory failure. During that admission, she was also noted to have atrial fibrillation with RVR and had been on Eliquis for some time. REVIEW OF SYSTEMS: A 10-category review of systems was obtained with all responses negative except for the pertinent positives as listed in HPI. PAST MEDICAL HISTORY: As per HPI. PAST SURGICAL HISTORY: None. FAMILY HISTORY: Denies any GI malignancies. SOCIAL HISTORY: Smokes approximately 1/2 to 1 pack per day. Denies any alcohol or illicit drug use. OUTPATIENT MEDICATIONS: Reviewed. ALLERGIES: NO KNOWN DRUG ALLERGIES. PHYSICAL EXAMINATION: VITAL SIGNS: Temperature 99.2, pulse 97, blood pressure 126/68, respiratory rate 23, saturating 98% on room air. GENERAL: The patient was lying in bed, in no acute distress. Alert and oriented x4. HEENT: Neck was supple. No JVD or scleral icterus noted. Normocephalic, atraumatic. CARDIOVASCULAR: Heart sounds were difficult to auscultate due to patient's body habitus, but from what I could hear it appeared to be irregularly irregular consistent with atrial fibrillation. RESPIRATORY: Increased resistance to air flow was heard in all lung shoemaker, but no discernible wheezes or rales. ABDOMEN: Normoactive bowel sounds. Soft, nontender, nondistended. EXTREMITIES: No cyanosis, clubbing, or edema. LABORATORY DATA: CBC with a white blood cell count of 1.8, hemoglobin 6.6, hematocrit 20.6, platelets 78. Chemistry with a sodium of 142, potassium 3.4, chloride 108, CO2 20, BUN 30, creatinine 2.4, glucose 50, AST 12, ALT 18, alkaline phosphatase 100, total bilirubin 0.4, albumin 2.8. IMAGING DATA: No current GI imaging is available for review. ASSESSMENT AND PLAN: The patient is a 58-year-old female with past medical history of paroxysmal atrial fibrillation, on anticoagulation, diabetes, hypertension, hyperlipidemia, congestive heart failure, chronic kidney disease, and rheumatoid arthritis presenting with hematochezia. Hematochezia. The patient is presenting with the appearance of maroon-colored stools over the last week. They were increasing in frequency, characterizes having approximately 2 to 3 bowel movements per day, with maroon-colored blood seen mixed in with the stool. She is currently taking both aspirin and Eliquis as an outpatient as part of the treatment for her atrial fibrillation, which could potentially lead to any source of gastrointestinal bleeding. However, she was also noted to have pancytopenia in addition to her significant anemia, which raises concern for a non-GI process contributing to her current anemia. However, with her maroon-colored stools, both an upper GI nor lower GI etiology can be ruled out at this time. Differential could include esophagitis, gastritis, peptic ulcer disease, arteriovenous malformation, Dieulafoy lesion, inflammatory bowel disease (less likely) ischemic colitis and/or GI neoplasm. RECOMMENDATIONS: 1. Would continue to trend H and H and transfuse as necessary to maintain an H and H of 7/. 2. Continue to monitor clinically for signs of active GI bleeding. 3. We would make the patient n.p.o. at midnight with GoLYTELY prep in anticipation for both EGD and colonoscopy tomorrow morning. 4. We would continue the patient on pantoprazole b.i.d. in light of possible active upper GI bleed. 5. Further recommendations to follow endoscopy. We will continue to follow. Please call with any questions. Job ID: [id number]
[2018-10-24] MEDS: Furosemide 20 MG/2 ML VIAL SLOW IVP SCH ×2 (05:10→13:34)
[2018-10-24 07:21] LABS: Hemoglobin 9.6 g/dL (12.0-16.0); Mean Corpuscular Hemoglobin 29.7 pg (27.0-31.0); Mean Corpuscular Volume 90.1 fL (78.0-98.0); Mean Platelet Volume 7.8 fL (7.4-10.4); Platelet Count 89 thou/uL (130-400); RBC Distribution Width 18.2 % (11.5-14.5); Red Blood Cell (RBC) Count 3.22 mill/uL (4.20-5.40); White Blood Cell (WBC) Count 2.3 thou/uL (4.8-10.8)
[2018-10-24 07:28] LABS: ALT (SGPT) 17 U/L (8-55); AST (SGOT) 16 U/L (5-34); Albumin 2.8 g/dL (3.5-5.0); Alkaline Phosphatase 121 U/L (40-150); Anion Gap 14 mmol/L (10-20); BUN (Urea Nitrogen) 16 mg/dL (9.8-20.1); Bilirubin, Total 0.5 mg/dL (0.2-1.2); Calc. Creatinine Clearance 598 mL/min (70-130); Calcium 8.7 mg/dL (7.8-10.44); Carbon Dioxide 24 mmol/L (22-29); Chloride 108 mmol/L (98-107); Estimated GFR-MDRD 41; Globulin 3.1 g/dL (2.4-3.5); Potassium 3.2 mmol/L (3.5-5.1); Protein, Total 5.9 g/dL (6.0-8.3); Sodium 143 mmol/L (136-145)
[2018-10-24 07:43] LABS: Glucose 52 mg/dL (70-105)
[2018-10-24] MEDS: Dextrose 50% Abboject 50 ML SYRINGE SLOW IVP PRN (07:48)
[2018-10-24 08:05] LABS: Anisocytosis MODERATE=16-30 cells (100X) (0-5/hpf); Band 1 % (5-11); Eosinophils 10 % (0-10); Lymphocytes 82 % (21-51); MDiff Complete? YES; Monocytes 3 % (0-10); Neutrophil 4 % (42-75); Platelet Morphology Comment Appears Decreased; Polychromasia MODERATE = 3-4 cells (100X) (0-2/hpf)
--- NOTE | 2018-10-24 08:46 | PDOC.PULCN ---
Pulmonology Consult: HPI - Date of Consult Date: 10/24/18 Time: 07:18 - Consult Details Reason for Consult: CCU Management, GI bleed Requesting Physician: Dr. Parham Comments: History and physical exam, consult completed by resident physician, Dr. Medellin, alongside Dr. Nagy. Please see addendum for any additional remarks by Dr. Nagy. - History of Present Illness HPI: CLEVELAND BEGUM is a 58 year-old F with a PMH of Paroxysmal Atrial Fibrillation on Eliquis, DM2, HTN, HLD, Diastolic CHF, CKD, and Rheumatoid Arthritis who was brought to the ED on 10/23/18 by due to altered mental status and decreased po intake X1 day. On presentation to ED, patient had blood glucose of 20. Patient is on metformin and glimepiride and took normal dose morning of admission. Patient was given amp of D50 and oral glucose in the ED with improved her blood glucose. Patient was in tachycardic and hypotensive in the ER, both of which have improved with IVFs. It was noted on further history that patient has had a 1 week history of maroon colored stools, approximately 2-3 per day. She denies abdominal pain or any history of GI bleeding. Dr. Valladares was consulted and pt is scheduled for upper and lower endoscopy this admission. Eliquis and aspirin are being held at this time due to the bleeding. Patient was also noted to be pancytopenic. Pt was had normal blood counts in August 2018. States that she has been taking Leflunomide for the last 2-3 months for RA, started by her Mail Caller in [place]. Pulmonology Consult: ROS - Review of Systems Constitutional: weakness. negative: fever, chills Cardiovascular: negative: chest pain, palpitations, orthopnea, paroxysmal nocturnal dyspnea Respiratory: negative: congestion, cough, chest tightness, pain on deep breathing, short of breath Pulmonology Consult: PMH Source: patient Past Medical History: 1) paroxysmal atrial fibrillation on Eliquis 2) Type 2 Diabetes Mellitus on Metformin and Glimepiride 3) Hypertension 4) Hyperlipidemia 5) Diastolic congestive heart failure 6) CKD 7) Rheumatoid Arthritis - Family History Pertinent family history: Diabetes - Social History Smoking Status: Current every day smoker Alcohol Use: rarely Drug Use History: none Living Situation: Pulmonology Consult: Meds - Medications MAR Reviewed: Yes Medications: Current Medications Acetaminophen (Tylenol) 650 mg PO Q4H PRN PRN Reason: Headache/Fever/Mild Pain (1-3) Albuterol/Ipratropium (Duoneb) 3 ml NEB [id number] [facility] Last Admin: 10/24/18 07:03 Dose: 3 ml Alprazolam (Xanax) 1 mg PO TID [facility] Last Admin: 10/23/18 20:21 Dose: 1 mg Atorvastatin Calcium (Lipitor) 40 mg PO DAILY [facility] Bisacodyl (Dulcolax) 10 mg PO DAILYPRN PRN PRN Reason: Constipation Carvedilol (Coreg) 12.5 mg PO BID [facility] Last Admin: 10/23/18 20:23 Dose: 12.5 mg Dextrose/Water (Dextrose 50%) 25 gm SLOW IVP PRN PRN PRN Reason: Hypoglycemia Last Admin: 10/24/18 07:48 Dose: 25 gm Furosemide (Lasix) 20 mg SLOW IVP 0600,1400 [facility] Last Admin: 10/24/18 05:10 Dose: 20 mg Glucagon (Glucagon) 1 mg IM PRN PRN PRN Reason: Hypoglycemia Hydralazine HCl (Apresoline) 10 mg SLOW IVP Q4H PRN PRN Reason: SBP Greater Than 180 Dextrose/Sodium Chloride (D5 0.9% Ns) 1,000 mls @ 50 mls/hr IV .Q20H [facility] Stop: 10/24/18 12:00 Last Admin: 10/24/18 00:48 Dose: 1,000 mls Dextrose/Water (D5w) 1,000 mls @ 0 mls/hr IV .Q0M PRN PRN Reason: Hypoglycemia Potassium Chloride 40 meq/ (Sodium Chloride) 270 mls @ 135 mls/hr IVPB ASDIR PRN PRN Reason: FOR SERUM K+ 2.5 - 3.5 Potassium Chloride 40 meq/ (Device) 100 mls @ 50 mls/hr IVPB ASDIR PRN PRN Reason: FOR SERUM K+ 2.5 - 3.5 Magnesium Sulfate 1 gm/ Sodium (Chloride) 102 mls @ 102 mls/hr IV PRN PRN PRN Reason: MAG LEVEL 1.4 - 2.0 Magnesium Sulfate 2 gm/ Device 100 mls @ 100 mls/hr IVPB ASDIR PRN PRN Reason: MAGNESIUM < 1.4 Potassium Phosphate 9 mmol/ (Sodium Chloride) 103 mls @ 25.75 mls/hr IVPB ASDIR PRN PRN Reason: Phosphate 1.0-1.8 Potassium Phosphate 12 mmol/ (Sodium Chloride) 254 mls @ 63.5 mls/hr IV ASDIR PRN PRN Reason: Serum phosphate 0.5-0.9 Potassium Phosphate 15 mmol/ (Sodium Chloride) 255 mls @ 63.75 mls/hr IV ASDIR PRN PRN Reason: Serum Phos < 0.5 Insulin Human Lispro (Humalog) 0 units SC .MILD SLIDING SCALE PRN PRN Reason: Mild Correctional Scale Magnesium Oxide (Magnesium Oxide) 400 mg PO BIDPRN PRN PRN Reason: FOR SERUM MAG 1.4 - 2.0 Magnesium Oxide (Magnesium Oxide) 800 mg PO PRN PRN PRN Reason: FOR SERUM MAG < 1.4 Miscellaneous Medication (Phos-Nak) 1 pkt PO TIDPRN PRN PRN Reason: FOR PHOS LEVEL 1.0 - 1.8 Miscellaneous Medication (Phos-Nak) 2 pkt PO TIDPRN PRN PRN Reason: FOR PHOS LEVEL 0.5 - 1.0 Ccu Electrolyte (Replacement Protocol) 0 each FS PRN PRN PRN Reason: FOR ELECTROLYTE REPLACEMENT Ondansetron HCl (Zofran) 4 mg IVP Q6H PRN PRN Reason: Nausea/Vomiting Pantoprazole Sodium (Protonix) 40 mg IVP Q12HR [facility] Last Admin: 10/23/18 20:24 Dose: 40 mg Potassium Chloride (K-Dur) 40 meq PO ASDIR PRN PRN Reason: FOR SERUM K+ 2.5 - 3.5 Potassium Chloride (Klor-Con) 40 meq PER TUBE ASDIR PRN PRN Reason: FOR SERUM K+ 2.5-3.5 Sodium Chloride (Normal Saline Pf) 10 ml FS Q12HR [facility] Last Admin: 10/23/18 20:24 Dose: 10 ml Sodium Chloride (Flush - Normal Saline) 10 ml IVF PRN PRN PRN Reason: Saline Flush Last Admin: 10/23/18 12:18 Dose: 10 ml - Allergies Allergies/Adverse Reactions: Allergies Allergy/AdvReac Type Severity Reaction Status Date / Time No Known Drug Allergies Allergy Verified 09/28/18 01:52 Pulmonology Consult: PE - Physical Exam Constitutional: NAD HEENT: moist MMs, sclera anicteric, TM's clear Neck: supple, full ROM Cardiovascular: no significant murmur, no rub Deviation from normal: irregularly irregular rhythm Respiratory: clear to auscultation bilaterally. negative: accessory muscle use , chest wall tenderness, decreased breath sounds Gastrointestinal: soft, non-tender, no distention, positive bowel sounds Musculoskeletal: no edema, pulses present Neurological: non-focal, normal sensation, moves all 4 limbs Psychiatric: normal affect, A&O x 3 Skin: no rash, cap refill <2 seconds Pulmonology Consult: Results - Labs Result Diagrams: 10/26/18 04:17 10/25/18 04:02 - EKG Data EKG Interpreted by Myself (on Tele monitor. Atrial fibrillation, rate controlled) Pulmonology Consult: A/P - Problem (1) Acute blood loss anemia Code(s): D62 - ACUTE POSTHEMORRHAGIC ANEMIA Status: Acute (2) Acute metabolic encephalopathy due to hypoglycemia Code(s): G93.41 - METABOLIC ENCEPHALOPATHY; E16.2 - HYPOGLYCEMIA, UNSPECIFIED Status: Resolved (3) GI bleed Code(s): K92.2 - GASTROINTESTINAL HEMORRHAGE, UNSPECIFIED Status: Acute (4) Pancytopenia Code(s): D61.818 - OTHER PANCYTOPENIA Status: Acute (5) Hypokalemia Code(s): E87.6 - HYPOKALEMIA Status: Acute (6) Hypotension Status: Resolved (7) Atrial fibrillation Code(s): I48.91 - UNSPECIFIED ATRIAL FIBRILLATION Status: Chronic Qualifiers: Atrial fibrillation type: chronic Qualified Code(s): I48.2 - Chronic atrial fibrillation (8) Chronic anticoagulation Code(s): Z79.01 - [facility] (CURRENT) USE OF ANTICOAGULANTS Status: Chronic - Time Time: 50% of the time was spent in coordination of care (as documented) at patient's floor/unit and/or counseling patient. Time with Patient: greater than 70 minutes - Plan Plan: 1) Metabolic Encephalopathy 2/2 hypoglycemia: resolved - Patient is stable from a respiratory and hemodynamic standpoint. Mental status has returned to baseline. - Discontinue D5NS after procedure and patient has eaten - continue accuchecks. Patient has no history of hypoglycemic episodes in the past. Will likely need to discontinue glimepiride on discharge. - R/o infection, checking UA and CXR, recently diagnosed with influenza 1-2 weeks ago 2) NELSON likely secondary to hypoperfusion, improving with IVFs. 3) Acute Blood Loss Anemia: - Continue holding Eliquis, plan for upper and lower endoscopy with GI. - Continue IV BID protonix. 4) Pancytopenia: - Possible that pancytopenia is 2/2 leflunomide. Leflunomide was started about 2 months ago and patient had normal blood counts in August 2018. - Continue to trend CBCs - Checking Vit B12 and folate, as well as peripheral blood smear to rule out alternative causes of pancytopenia. 5) Hypokalemia: - Supplementing, repeat bmp in AM with mag Addendum - Attending - Attending Attestation Date/Time: 10/24/181499 I personally evaluated the patient and discussed the management with Dr. Medellin. I agree with the History, Examination, Assessment and Plan documented above with any addition or exceptions noted below. 70 minutes have been devoted to this patient in various activities. I personally reviewed all imaging studies and laboratory data noted within this document. For fifty percent of this time, I was interacting with the patient at the bedside or coordinating care with the care team. For the remainder of the time I was immediately available to the patient in the hospital unit.
[2018-10-24] MEDS: ALPRAZolam 1 MG TAB PO SCH ×3 (08:58→21:28)
[2018-10-24] MEDS: Atorvastatin Calcium 40 MG TAB PO SCH (08:59)
[2018-10-24] MEDS: Pantoprazole 40 MG VIAL IVP SCH ×2 (08:59→21:38)
[2018-10-24] MEDS: Carvedilol 6.25 MG TAB PO SCH ×2 (08:59→21:29)
[2018-10-24] MEDS ORDERED: Pantoprazole 40 MG VIAL IVP SCH (09:00)
[2018-10-24] MEDS: Sodium Chloride 0.9% (PF) 10 ML VIAL FS SCH ×2 (09:50→21:38)
[2018-10-24] MEDS: Potassium Chloride 20 MEQ TAB PO SCH ×2 (11:00→17:59)
[2018-10-24 11:08] LABS: Folate (Folic Acid) 10.2 ng/mL (7.0-31.4)
[2018-10-24 11:34] LABS: INR-International Normal Ratio 1.4; PTT 36.8 SEC (22.9-36.1); Prothrombin Time 16.8 SEC (12.0-14.7)
[2018-10-24 11:37] LABS: Hemoglobin 8.8 g/dL (12.0-16.0); Mean Corpuscular HGB CONC 33.9 g/dL (32.0-36.0); Mean Corpuscular Hemoglobin 29.9 pg (27.0-31.0); Mean Platelet Volume 7.6 fL (7.4-10.4); Platelet Count 89 thou/uL (130-400); RBC Distribution Width 17.7 % (11.5-14.5); Red Blood Cell (RBC) Count 2.94 mill/uL (4.20-5.40); White Blood Cell (WBC) Count 1.6 thou/uL (4.8-10.8)
[2018-10-24] MEDS ORDERED: PROPOFOL 200 MG/20 ML VIAL ONE (11:43)
[2018-10-24] MEDS ORDERED: Lidocaine 1% PF 5 ML VIAL ONE (11:43)
[2018-10-24 11:46] LABS: Bilirubin Negative (Negative); Blood, Urine Negative (Negative); Clarity CLEAR (Clear); Glucose, Urine (Dipstick) Negative (Negative); Leukocyte Negative (Negative); Nitrite Negative (Negative); Protein, Urine (Dipstick) Negative (Neg-Trace); Specific Gravity, Urine 1.008 (1.002-1.036); Urobilinogen 0.2 mg/dL (0.2-1.0)
[2018-10-24 11:56] LABS: Bacteria/HPF None Seen HPF (None Seen); Hyaline Casts/LPF 0-3 HYALINE CAST LPF (0-3 Hyaline); Pathc Cast-AUWi Flag 0.29 (0-2.49); Squamous Epithelial None Seen HPF (0-3); WBC/HPF 0-3 HPF (0-3)
[2018-10-24] MEDS ORDERED: Cyanocobalamin 1000 MCG/ML VIAL IM SCH (12:00)
[2018-10-24 12:26] LABS: Eosinophils 13 % (0-10); Lymphocytes 76 % (21-51); MDiff Complete? YES; Monocytes 5 % (0-10); Neutrophil 5 % (42-75); Platelet Morphology Comment Appears Decreased; Polychromasia MODERATE = 3-4 cells (100X) (0-2/hpf)
--- NOTE | 2018-10-24 13:45 | RAD ---
PA AND LATERAL CHEST: HISTORY: Cough. FINDINGS: Heart size is enlarged. There are atherosclerotic changes of the aorta. The lungs are clear of any infiltrative process. There are no signs of failure. Pulmonary vessels appear less engorged than on the prior exam. IMPRESSION: Cardiomegaly with decreased pulmonary vascular engorgement as compared to the previous study. POS: TPC
[2018-10-24] MEDS: HumaLOG 300 UNITS/3 ML VIAL SC PRN (18:01)
--- NOTE | 2018-10-24 19:20 | PDOC.PN ---
- Subjective Encounter Start Date: 10/24/18 Encounter Start Time: 15:25 Subjective: f/u for hypoglycemia and GI bleed on Eliquis. No recurrent BM's -: or hematochezia. Awaiting endoscopy. - Objective Resuscitation Status - Order Detail: 10/23/18 01:48 Resuscitation Status Routine Resuscitation Status: FULL: Full Resuscitation MAR Reviewed: Yes Vital Signs & Weight: Vital Signs (12 hours) Temp Pulse Resp BP Pulse Ox 10/24/18 18:53 211 H 20 10/24/18 17:54 98.2 F 10/24/18 14:29 95 34 H 99 10/24/18 11:00 99.1 F 10/24/18 10:51 86 25 H 99 10/24/18 08:59 140/89 10/24/18 08:00 96 Weight Admit Weight 213 lb Weight 2127 lb 7.371 oz Most Recent Monitor Data Heart Rate from ECG 97 NIBP 140/78 NIBP BP-Mean 98 Respiration from ECG 33 SpO2 100 I&O: 10/23/18 10/24/18 10/25/18 06:59 06:59 06:59 Intake Total 5929 201 Output Total 2390 1560 Balance 3539 -4519 Result Diagrams: 10/24/18 11:19 10/24/18 06:13 Additional Labs: Accuchecks 10/24/18 10/24/18 10/24/18 17:53 12:21 08:50 POC Glucose 150 H 114 H 176 H 10/24/18 10/24/18 10/24/18 05:18 01:21 00:43 POC Glucose 82 116 H 60 L 10/23/18 20:06 POC Glucose 107 Microbiology 10/23/18 09:30 Urine dos santos catheter Urine Culture - Preliminary NO GROWTH AT 24 HOURS Laboratory Tests 10/23/18 10/23/18 10/23/18 00:08 00:08 03:31 WBC 1.8 L Hgb 6.6 L Plt Count 78 L Potassium 2.9 L* 3.4 L Creatinine 2.60 H Vitamin B12 Folate 10/23/18 10/23/18 10/23/18 03:31 14:40 20:09 WBC 2.1 L 2.2 L 2.2 L Hgb 7.2 L 10.1 L 9.7 L Plt Count 90 L 82 L 79 L Potassium Creatinine Vitamin B12 Folate 10/24/18 09:41 WBC Hgb Plt Count Potassium Creatinine Vitamin B12 369 Folate 10.20 Radiology Reviewed by me: Yes (PCXR - decreased pulm vasc prominence) EKG Reviewed by me: Yes (Tele - A-fib in 80's) Phys Exam - Physical Examination Constitutional: NAD HEENT: PERRLA, sclera anicteric, oral pharynx no lesions Neck: no nodes, no JVD, supple, full ROM Respiratory: no wheezing, no rales, no rhonchi, clear to auscultation bilateral S1, S2 Cardiovascular: no significant murmur, no rub, gallop, irregular Gastrointestinal: soft, non-tender, no distention, positive bowel sounds Musculoskeletal: no edema, pulses present Neurological: normal sensation, moves all 4 limbs Psychiatric: A&O x 3 Skin: normal turgor, cap refill <2 seconds Dx/Plan (1) Acute metabolic encephalopathy due to hypoglycemia Code(s): G93.41 - METABOLIC ENCEPHALOPATHY; E16.2 - HYPOGLYCEMIA, UNSPECIFIED Status: Resolved Comment: Improved after correction of hypoglycemia, serial glucose monitoring, hold all DM medications, continue D5NS IV (2) GI bleed Code(s): K92.2 - GASTROINTESTINAL HEMORRHAGE, UNSPECIFIED Status: Acute Comment: Suspected due to chronic Eliquis, GI consult, PPI IV, serial H/H, s/p 2u PRBC's, hold all anticoagulation, Endoscopy pending today (3) Acute blood loss anemia Code(s): D62 - ACUTE POSTHEMORRHAGIC ANEMIA Status: Acute Comment: See above , repeat CBC in am, PPI, s/p 2u PRBC's (4) Pancytopenia Code(s): D61.818 - OTHER PANCYTOPENIA Status: Acute Comment: ? etiology, consider Hematology evaluation, repeat CBC, ? Leflunomide (5) Acute renal failure superimposed on stage 3 chronic kidney disease Code(s): N17.9 - ACUTE KIDNEY FAILURE, UNSPECIFIED; N18.3 - CHRONIC KIDNEY DISEASE, STAGE 3 (MODERATE) Status: Acute Comment: Likely volume mediated with ATN due to GI bleeding, low-volume IVF's, avoid nephrotoxic meds and limit contrast exposure (6) Atrial fibrillation Code(s): I48.91 - UNSPECIFIED ATRIAL FIBRILLATION Status: Chronic Qualifiers: Atrial fibrillation type: chronic Qualified Code(s): I48.2 - Chronic atrial fibrillation Comment: Rate-controlled currently, continue Coreg, Digoxin (7) Chronic anticoagulation Code(s): Z79.01 - [facility] (CURRENT) USE OF ANTICOAGULANTS Status: Chronic Comment: Eliquis x 2yrs, hold anticoagulation due to GI bleeding - Plan plan discussed w/ family, executive secretary social welfare, out of bed/ambulate, DVT proph w/SCDs Stable currently -: Await Endoscopy today -: Avoid all anticoagulation -: Continue D5NS IV -: CCU electrolyte replacement protocol * AM lab: BMP, CBC
[2018-10-25 04:38] LABS: Anion Gap 14 mmol/L (10-20); BUN (Urea Nitrogen) 15 mg/dL (9.8-20.1); Calc. Creatinine Clearance 639 mL/min (70-130); Calcium 8.6 mg/dL (7.8-10.44); Carbon Dioxide 23 mmol/L (22-29); Chloride 105 mmol/L (98-107); Estimated GFR-MDRD 44; Glucose 114 mg/dL (70-105); Magnesium 1.2 mg/dL (1.6-2.6); Potassium 3.8 mmol/L (3.5-5.1); Sodium 138 mmol/L (136-145)
[2018-10-25 05:01] LABS: Hemoglobin 9.9 g/dL (12.0-16.0); Hypochromia SLIGHT = 6-15 cells (100X) (0-5/hpf); Lymphocytes 72 % (21-51); MDiff Complete? YES; Mean Corpuscular HGB CONC 33.3 g/dL (32.0-36.0); Mean Corpuscular Hemoglobin 30.3 pg (27.0-31.0); Mean Corpuscular Volume 90.9 fL (78.0-98.0); Mean Platelet Volume 7.4 fL (7.4-10.4); Monocytes 4 % (0-10); Neutrophil 24 % (42-75); Platelet Count 111 thou/uL (130-400); Platelet Morphology Comment Appears Adequate; RBC Distribution Width 18.3 % (11.5-14.5); Red Blood Cell (RBC) Count 3.26 mill/uL (4.20-5.40); White Blood Cell (WBC) Count 1.8 thou/uL (4.8-10.8)
[2018-10-25] MEDS: Furosemide 20 MG/2 ML VIAL SLOW IVP SCH ×2 (05:48→13:10)
[2018-10-25] MEDS: Magnesium Oxide 400 MG TAB PO PRN ×2 (07:42→08:57)
--- NOTE | 2018-10-25 08:53 | OP ---
DATE OF PROCEDURE: 10/24/2018 PROCEDURE PERFORMED: 1. EGD with biopsy. 2. Colonoscopy with biopsy. PREPROCEDURE DIAGNOSES: 1. History of hematochezia, rectal bleeding. 2. History of chronic anticoagulation with Eliquis. 3. Anemia presentation with a hemoglobin of 6.7 on 10/23, now 8.8. Hemoglobin back in August was anywhere from 10 to 12. POSTOPERATIVE DIAGNOSES: 1. Erosive gastritis without stigmata of bleeding in the antrum, biopsies obtained. 2. Otherwise normal EGD. 3. Ulceration on lipomatous ileocecal valve, biopsied and soft, suspect benign, possibly mildly ischemic process. 4. Otherwise normal colonoscopy in terminal ileum. ANESTHESIA: TIVA. PROCEDURE IN DETAIL: The patient was informed of the risks, benefits, and possible complications of endoscopy including perforation, reaction to medication and aspiration, and informed consent was obtained. The patient was brought to the endoscopy suite, where she was sedated in gradual fashion. Once she was comfortable, a bite block was placed in the oropharynx. The endoscope was then advanced to the esophagus, stomach, second, and third portion of the duodenum and the scope was slowly removed. There was good visualization of mucosa. There were some erosions with white based ulceration about 3 mm to 4 mm in size noted in the floor of the antrum. There was no stigmata of bleeding. These were somewhat linear in the floor of the antrum and multiple biopsies were obtained and were submitted to Pathology. Photo documentation was obtained. Retroflexed views in the stomach were normal. The esophagus was normal. The duodenum and the 3rd portion were normal. The scope was removed. The patient was turned to the room and a rectal examination was performed. The endoscope was advanced through the anal canal through the colon to the cecum, which was identified by the ileocecal valve and appendiceal orifice. The terminal ileum was entered and found to be normal. Ileocecal valve had some superficial ulcerations and submucosal hemorrhage. Multiple biopsies were taken and submitted to Pathology. This is soft, likely represents probably little bit of submucosal ischemia related to lipomatous ileocecal valve. The remainder of the colon was normal. Retroflexed views in the rectum were normal. The scope was removed. The patient was brought to recovery room in stable condition. Job ID: [id number]
[2018-10-25] MEDS: Pantoprazole 40 MG VIAL IVP SCH ×2 (08:56→21:10)
[2018-10-25] MEDS: Carvedilol 6.25 MG TAB PO SCH ×2 (08:57→21:09)
[2018-10-25] MEDS: Atorvastatin Calcium 40 MG TAB PO SCH (08:57)
[2018-10-25] MEDS: ALPRAZolam 1 MG TAB PO SCH ×3 (08:58→21:09)
[2018-10-25] MEDS ORDERED: Magnesium 2 GM/50 ML 2 GM in Premix Bag 1 BAG IVPB SCH (10:15)
[2018-10-25] MEDS: Sodium Chloride 0.9% (PF) 10 ML VIAL FS SCH ×2 (10:37→21:10)
[2018-10-25] MEDS: HumaLOG 300 UNITS/3 ML VIAL SC PRN ×2 (11:25→15:41)
--- NOTE | 2018-10-25 17:50 | PDOC.PN ---
- Subjective Encounter Start Date: 10/25/18 Encounter Start Time: 17:00 Subjective: f/u for GI bleed s/p EGD showing erosive gastritis and ileocecal valve -: ulceration on Eliquis. s/p 2u PRBC's. Feeling ok. Tolerating po intake -: without difficulty. Glucose trend improved. - Objective Resuscitation Status - Order Detail: 10/23/18 01:48 Resuscitation Status Routine Resuscitation Status: FULL: Full Resuscitation MAR Reviewed: Yes Vital Signs & Weight: Vital Signs (12 hours) Temp Pulse Pulse Pulse Resp BP BP 10/25/18 15:55 97.8 F 10/25/18 15:15 99 32 H 10/25/18 14:54 102 H 96 112/95 H 10/25/18 12:00 98.7 F 10/25/18 10:27 10/25/18 10:25 98 15 10/25/18 08:57 125/47 L 10/25/18 07:45 98.7 F 10/25/18 07:00 98.7 F BP Pulse Ox Pulse Ox Pulse Ox 10/25/18 15:55 10/25/18 15:15 99 10/25/18 14:54 100/50 L 99 100 10/25/18 12:00 10/25/18 10:27 99 10/25/18 10:25 99 10/25/18 08:57 10/25/18 07:45 98 10/25/18 07:00 Weight Admit Weight 213 lb Weight 2127 lb 7.371 oz Most Recent Monitor Data Heart Rate from ECG 93 NIBP 124/60 NIBP BP-Mean 81 Respiration from ECG 42 SpO2 100 I&O: 10/24/18 10/25/18 10/26/18 06:59 06:59 06:59 Intake Total 5929 881 1730 Output Total 2390 1965 1605 Balance 3539 -1084 125 Result Diagrams: 10/25/18 04:02 10/25/18 04:02 Additional Labs: Accuchecks 10/25/18 10/25/18 10/25/18 15:38 11:21 05:56 POC Glucose 226 H 263 H 124 H 10/24/18 10/24/18 21:29 17:53 POC Glucose 189 H 150 H Microbiology 10/23/18 09:30 Urine dos santos catheter Urine Culture - Preliminary NO GROWTH AT 24 HOURS Laboratory Tests 10/23/18 10/23/18 10/23/18 00:08 00:08 03:31 WBC 1.8 L Hgb 6.6 L Plt Count 78 L Potassium 2.9 L* 3.4 L Creatinine 2.60 H Vitamin B12 Folate 10/23/18 10/23/18 10/23/18 03:31 14:40 20:09 WBC 2.1 L 2.2 L 2.2 L Hgb 7.2 L 10.1 L 9.7 L Plt Count 90 L 82 L 79 L Potassium Creatinine Vitamin B12 Folate 10/24/18 09:41 WBC Hgb Plt Count Potassium Creatinine Vitamin B12 369 Folate 10.20 Radiology Reviewed by me: Yes (EGD - erosive gastritis, ileocecal valve ulcer) EKG Reviewed by me: Yes (Tele - A-fib in low-100's) Phys Exam - Physical Examination Constitutional: NAD HEENT: PERRLA, sclera anicteric, oral pharynx no lesions Neck: no nodes, no JVD, supple, full ROM Respiratory: no wheezing, no rales, no rhonchi, clear to auscultation bilateral S1, S2 Cardiovascular: no significant murmur, no rub, gallop, irregular Gastrointestinal: soft, non-tender, no distention, positive bowel sounds Musculoskeletal: no edema, pulses present Neurological: normal sensation, moves all 4 limbs Psychiatric: A&O x 3 Skin: normal turgor, cap refill <2 seconds Dx/Plan (1) Acute metabolic encephalopathy due to hypoglycemia Code(s): G93.41 - METABOLIC ENCEPHALOPATHY; E16.2 - HYPOGLYCEMIA, UNSPECIFIED Status: Resolved Comment: Improved after correction of hypoglycemia, serial glucose monitoring, resolved, resume ISS (2) GI bleed Code(s): K92.2 - GASTROINTESTINAL HEMORRHAGE, UNSPECIFIED Status: Acute Comment: Suspected due to chronic Eliquis with erosive gastritis, PPI IV, serial H/H, s/p 2u PRBC's, hold all anticoagulation (3) Acute blood loss anemia Code(s): D62 - ACUTE POSTHEMORRHAGIC ANEMIA Status: Acute Comment: See above , repeat CBC in am, PPI, s/p 2u PRBC's (4) Pancytopenia Code(s): D61.818 - OTHER PANCYTOPENIA Status: Acute Comment: ? etiology, consider Hematology evaluation, repeat CBC, ? Leflunomide (5) Acute renal failure superimposed on stage 3 chronic kidney disease Code(s): N17.9 - ACUTE KIDNEY FAILURE, UNSPECIFIED; N18.3 - CHRONIC KIDNEY DISEASE, STAGE 3 (MODERATE) Status: Acute Comment: Likely volume mediated with ATN due to GI bleeding, low-volume IVF's, avoid nephrotoxic meds and limit contrast exposure (6) Atrial fibrillation Code(s): I48.91 - UNSPECIFIED ATRIAL FIBRILLATION Status: Chronic Qualifiers: Atrial fibrillation type: chronic Qualified Code(s): I48.2 - Chronic atrial fibrillation Comment: Rate-controlled currently, continue Coreg, Digoxin (7) Chronic anticoagulation Code(s): Z79.01 - [facility] (CURRENT) USE OF ANTICOAGULANTS Status: Chronic Comment: Eliquis x 2yrs, hold anticoagulation due to GI bleeding, hold anticoagulation x 1 week - Plan plan discussed w/ family, PT/OT, social work lecturer, out of bed/ambulate, DVT proph w/SCDs Stable currently -: Hold all anticoagulation and NSAIDs -: Serial H/H -: Resume ADA diet -: AM lab: H/H * Likely home in am
--- NOTE | 2018-10-25 21:49 | PRG ---
DATE OF SERVICE: 10/25/2018 REASON FOR CONSULTATION: Hematochezia. SUBJECTIVE: The patient underwent both EGD and colonoscopy yesterday without any perioperative complications. She did have findings of erosive gastritis as well as a small ulceration and submucosal hemorrhage at the ileocecal valve with multiple biopsies taken of these regions. Since the procedure, she has not had any further episodes of hematochezia and states that she is feeling "doing quite well today." Currently, she denies any nausea, vomiting, fevers, chills, abdominal pain, or GI bleeding. OBJECTIVE: VITAL SIGNS: Temperature 98.1, pulse 97, blood pressure 113/61, respiratory rate 14, saturating 98% on room air. GENERAL: The patient was lying in bed, in no acute distress. Alert and oriented x4. CARDIOVASCULAR: Heart sounds were difficult to auscultate due to the patient's body habitus, but appeared to be irregularly irregular. RESPIRATORY: Increased resistance air flow heard in all lung shoemaker. ABDOMEN: Normoactive bowel sounds. Soft, nontender, and nondistended. EXTREMITIES: No cyanosis, clubbing, or edema. LABORATORY DATA: CBC with a white blood cell count of 1.8, hemoglobin 9.9, hematocrit 29.6, and platelets 111. INR 1.4. Chemistry with a sodium of 138, potassium 3.8, chloride 105, CO2 of 23, BUN 15, creatinine 1.48, glucose 114. IMAGING DATA: EGD obtained on 10/24/2018 showed some erosions with wide-based ulceration measuring about 3 to 4 mm in size in the floor of the antrum without any high-risk stigmata or recent stigmata of bleeding. Multiple biopsies were taken at that time and the remainder of the upper endoscopy was normal. Colonoscopy was also performed on the same day, which showed large lipomatous ileocecal valve with overlying superficial ulcerations and submucosal hemorrhage. This was also biopsied for further evaluation, but it does not appear to have had any active/recent bleeding in this region. ASSESSMENT AND PLAN: The patient is a 58-year-old female with past medical history of paroxysmal atrial fibrillation on anticoagulation, diabetes, hypertension, hyperlipidemia, congestive heart failure, chronic kidney disease, and rheumatoid arthritis, presenting with hematochezia. Hematochezia. The patient is presenting with the appearance of maroon-colored stools over the last week that were increased in frequency and associated with a decrease in her hemoglobin and hematocrit. She was taking aspirin and Eliquis as an outpatient in addition to prednisone for her rheumatoid arthritis increasing her risk for possible GI bleed. On admission, she was also noted to have pancytopenia in addition to her significant anemia, which does raise some concern for a non-GI process. EGD and colonoscopy were performed on 10/24/2018, which showed erosive changes within the stomach as well as 3 to 4 mm ulceration that did not exhibit any high-risk stigmata of bleeding. Colonoscopy showed multiple small ulcerations as well as some mucosal hemorrhage at a lipomatous ileocecal valve, which was biopsied for evaluation, but did not exhibit any evidence of active bleeding. At this point, the more likely reason for her maroon-colored stool/hematochezia seems to be more likely related to the ileocecal valve with the ulcerations and some mucosal hemorrhage there. Given the clean based ulceration in the stomach, the likelihood of this being the bleeding site is relatively low (less than 5%); however, she does have a significant pancytopenia as well raising concern for non-GI process that was not seen during either upper or lower endoscopy. RECOMMENDATIONS: 1. Would continue to trend hemoglobin and hematocrit and transfuse as necessary to maintain hemoglobin and hematocrit of 7/21. 2. Continue to monitor clinically for signs of active GI bleeding. 3. We will follow up on the biopsy results with further plan of care data by pathology report. 4. Would continue pantoprazole b.i.d. in light of erosive gastritis. 5. Would continue to hold anticoagulation until biopsy results are known. 6. Would consider Hematology consultation for evaluation of her pancytopenia. We will continue to follow. Please call with any questions. Job ID: [id number]
[2018-10-26 04:24] LABS: Hemoglobin 9.5 g/dL (12.0-16.0); Platelet Count 154 thou/uL (130-400)
[2018-10-26] MEDS: Carvedilol 6.25 MG TAB PO SCH (08:34)
[2018-10-26] MEDS: ALPRAZolam 1 MG TAB PO SCH (08:35)
[2018-10-26] MEDS: Atorvastatin Calcium 40 MG TAB PO SCH (08:35)
[2018-10-26] MEDS: Pantoprazole 40 MG VIAL IVP SCH (08:36)
[2018-10-26 11:47] VITALS: TEMP 98.2
[2018-10-26] MEDS: Sodium Chloride 0.9% (PF) 10 ML VIAL FS SCH (11:52)
--- NOTE | 2018-10-26 13:53 | DIS ---
DATE OF ADMISSION: 10/23/2018 DATE OF DISCHARGE: 10/26/2018 DISCHARGE DIAGNOSES: 1. Acute metabolic encephalopathy due to hypoglycemia, resolved. 2. Gastrointestinal bleed, likely due to erosive gastritis, resolved. 3. Acute blood loss anemia, status post 2 units of packed red blood cells, stable. 4. Pancytopenia, likely secondary to leflunomide. 5. Acute kidney injury on chronic kidney disease, stage 3, improved. 6. Chronic atrial fibrillation, rate controlled on prior anticoagulation. 7. Chronic anticoagulation with Eliquis, currently on hold. CONSULTATIONS: 1. Dr. Valladares and [place] with GI Service. 2. Dr. Nagy with Pulmonology Service. PERTINENT LABORATORY AND X-RAY FINDINGS: Potassium ranged between 2.9 to 3.8, creatinine ranged between 1.48 to 2.60. Estimated GFR ranged between 23 to 44. Vitamin B12 level is 369. Folate level 10.2. Magnesium level ranged between 1.2 to 1.5. CBC showed a white blood cell count ranging between 1.6 to 2.3, hemoglobin ranged between 6.6 to 10.1, and platelet count ranged between 78 to 154. Urine culture dated 10/23/2018, showed no growth at 48 hours. Portable chest x-ray dated 10/23/2018, showed pulmonary vascular prominence. Portable chest x-ray dated 10/24/2018, showed decreased pulmonary vascular prominence. EGD/colonoscopy on 10/24/2018, showed erosive gastritis without active bleeding in the antrum. Ulceration of the ileocecal valve noted. HOSPITAL COURSE: The patient was initially admitted to the Critical Care Unit after presenting with altered mentation with associated hypotension and hypoglycemia. The patient was initially managed with multiple amps of D50 as well as oral glucose and D5 IV fluids with overall stabilization of glucose levels. The patient also received IV fluid hydration and resuscitation stabilizing with volume replacement. The patient was also noted with a decreased hemoglobin of 6.6 at the time of presentation with suspected GI blood loss. The patient received 2 units of packed red blood cells and evaluated by the GI Service. The patient underwent EGD and colonoscopy showing this erosive gastritis as well as ileocecal valve ulceration. The patient was recommended for Protonix of 40 mg twice daily and to avoid anticoagulation and NSAIDs. Biopsies were obtained in the ileocecal and gastric region with final results pending at the time of this dictation. Overall, the patient clinically stabilized with supportive management, IV fluid resuscitation, and electrolyte replacement. I have examined the patient at the time of discharge and discussed followup instructions. The patient verbalized understanding and agreement and ready for discharge on 10/26/2018. DISCHARGE MEDICATIONS: 1. ProAir HFA 2 puffs inhaled q.6 hours p.r.n. 2. Xanax 1 mg p.o. t.i.d. 3. Lipitor 40 mg p.o. daily. 4. Catapres 0.2 mg p.o. b.i.d. 5. Diltiazem ER 120 mg p.o. daily. 6. Multaq 400 mg p.o. b.i.d. 7. Folic acid 1 mg p.o. daily. 8. Lasix 40 mg p.o. daily. 9. Hydralazine 50 mg p.o. t.i.d. 10. Leflunomide 10 mg p.o. daily. 11. Losartan/hydrochlorothiazide 100/25 mg 1 tablet p.o. daily. 12. Metformin 1000 mg p.o. b.i.d. 13. Carvedilol 12.5 mg p.o. b.i.d. 14. Digoxin 0.125 mg p.o. daily. 15. Protonix 40 mg p.o. b.i.d. 16. Eliquis, hold until evaluation and followup by GI Service. FOLLOWUP: The patient may follow up with her primary care provider, Dr. Alena Mccormack within 7 days of discharge. The patient may follow up with Dr. Valladares with GI Service. The patient may follow up with her primary public health service officer, Dr. Messi Mendez. CONDITION ON DISCHARGE: Stable. ACTIVITY: Ad marlene. DIET: ADA and heart healthy. CODE STATUS: Full. DISPOSITION: Home on 10/26/2018. TIME SPENT: Total time preparing and coordinating discharge is 35 minutes. Job ID: [id number]
[2018-10-26 14:12] VITALS: BP 119/70
== END 2018-10-26 12:23 | disposition home or self-care (01) | DRG 70 ==
LOC: ERS 23:25 → ERHOLD 10-23 02:53 → OBSVTOIN 10-23 02:53 → CCU 10-23 08:17 → 2NO 10-26 09:07
PROVIDERS: ADMIT Family Medicine; ATTEND Family Medicine
PROC: 0DB68ZX Excision of Stomach, Via Natural or Artificial Opening Endoscopic, Diagnostic (ICD-10-PCS; principal; 2018-10-24)
PROC: 0DBC8ZX Excision of Ileocecal Valve, Via Natural or Artificial Opening Endoscopic, Diagnostic (ICD-10-PCS; 2018-10-24)
PROC: 30233N1 Transfusion of Nonautologous Red Blood Cells into Peripheral Vein, Percutaneous Approach (ICD-10-PCS; 2018-10-24)
DX: G93.41 Metabolic encephalopathy (principal); N17.0 Acute kidney failure with tubular necrosis; K63.3 Ulcer of intestine; I13.0 Hypertensive heart and chronic kidney disease with heart failure and stage 1 through stage 4 chronic kidney disease, or unspecified chronic kidney disease; I50.32 Chronic diastolic (congestive) heart failure; D62 Acute posthemorrhagic anemia; D61.818 Other pancytopenia; K29.70 Gastritis, unspecified, without bleeding; I48.0 Paroxysmal atrial fibrillation; E11.22 Type 2 diabetes mellitus with diabetic chronic kidney disease; T39.4X5A Adverse effect of antirheumatics, not elsewhere classified, initial encounter; N18.3 Chronic kidney disease, stage 3 (moderate); E11.649 Type 2 diabetes mellitus with hypoglycemia without coma; M06.9 Rheumatoid arthritis, unspecified; E78.5 Hyperlipidemia, unspecified; E87.6 Hypokalemia; I95.9 Hypotension, unspecified; F17.200 Nicotine dependence, unspecified, uncomplicated; Z79.01 Long term (current) use of anticoagulants; Z79.84 Long term (current) use of oral hypoglycemic drugs
CPT/HCPCS: 36415; 36416; 36430; 51702; 71045; 71046; 80048; 80053; 81001; 82607; 82746; 83735; 84484; 85007; 85014; 85018; 85025; 85027; 85049; 85060; 85610; 85730; 86850; 86900; 86901; 87086; 88305; 88312; 93005; 94640; 94760; 96365; 96366; 96367; 96375; C9113; J1940; J2001; J2704; J3420; J3475; J3480; J7050; J7620; P9016

== ENCOUNTER 2019-06-03 20:20 | Observation (INO) | payer OTHER ==
[~2019-06-03 20:20] MED LIST: ISOVUE-370 76%-LOCM 1 ML ONE
[2019-06-03] MEDS ORDERED: Morphine 4 MG/ML VIAL ONE ×2 (21:05→23:09)
[2019-06-03] MEDS ORDERED: Ondansetron PF 4 MG/2 ML Vial ONE (21:05)
[2019-06-03 21:22] LABS: #Basophils 0.1 thou/uL (0.0-0.2); #Eosinphils 0.3 thou/uL (0.0-0.7); #Lymphocytes 2.5 thou/uL (1.20-3.40); #Monocytes 0.4 thou/uL (0.11-0.59); #Neutrophils 5.3 thou/uL (1.40-6.50); %Basophils 0.9 % (0.0-1.0); %Eosinophils 3.3 % (0.0-10.0); %Lymphocytes 29.4 % (21.0-51.0); %Monocytes 4.8 % (0.0-10.0); %Neutrophils 61.6 % (42.0-75.0); Hemoglobin 12.1 g/dL (12.0-16.0); Mean Corpuscular HGB CONC 34.5 g/dL (32.0-36.0); Mean Corpuscular Hemoglobin 32.5 pg (27.0-31.0); Mean Corpuscular Volume 94.4 fL (78.0-98.0); Mean Platelet Volume 7.4 fL (7.4-10.4); Platelet Count 309 thou/uL (130-400); RBC Distribution Width 14.4 % (11.5-14.5); Red Blood Cell (RBC) Count 3.73 mill/uL (4.20-5.40); White Blood Cell (WBC) Count 8.6 thou/uL (4.8-10.8)
[2019-06-03 21:29] LABS: INR-International Normal Ratio 1.3; PTT 32.7 SEC (22.9-36.1); Prothrombin Time 16.6 SEC (12.0-14.7)
[2019-06-03 21:34] LABS: ALT (SGPT) 41 U/L (8-55); AST (SGOT) 50 U/L (5-34); Alkaline Phosphatase 237 U/L (40-110); Anion Gap 16 mmol/L (10-20); BUN (Urea Nitrogen) 23 mg/dL (9.8-20.1); Bilirubin, Total 0.4 mg/dL (0.2-1.2); CK (CPK) 50 U/L (29-168); Calc. Creatinine Clearance 0 mL/min (70-130); Calcium 9.8 mg/dL (7.8-10.44); Carbon Dioxide 25 mmol/L (22-29); Chloride 103 mmol/L (98-107); Estimated GFR-MDRD 33; Globulin 3.9 g/dL (2.4-3.5); Glucose 106 mg/dL (70-105); Potassium 3.9 mmol/L (3.5-5.1); Protein, Total 7.9 g/dL (6.0-8.3); Sodium 140 mmol/L (136-145)
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
[2019-06-03] MEDS ORDERED: HYDROcodone/Acetaminophen 5/325 mg Tablet ONE (23:01)
[2019-06-04] MEDS ORDERED: Ondansetron ODT 4 MG TAB PO PRN (02:34)
[2019-06-04] MEDS ORDERED: Insulin Regular 300 UNITS/3 ML VIAL SC PRN ×2 (02:34)
[2019-06-04] MEDS ORDERED: traMADol HCl 50 MG TAB PO PRN (02:34)
[2019-06-04] MEDS ORDERED: Sodium Chloride 0.9% 1,000 ML IV SCH (02:34)
[2019-06-04] MEDS ORDERED: Ondansetron PF 4 MG/2 ML Vial IVP PRN (02:34)
[2019-06-04] MEDS ORDERED: Dextrose 5% in Water 1,000 ML IV PRN (02:34)
[2019-06-04] MEDS ORDERED: Cyclobenzaprine 10 MG TAB PO PRN (02:34)
[2019-06-04] MEDS ORDERED: Dextrose 50% Abboject 50 ML SYRINGE SLOW IVP PRN (02:34)
[2019-06-04 02:51] VITALS: BMI 33.1
[2019-06-04] MEDS ORDERED: Morphine 4 MG/ML VIAL SLOW IVP SCH (03:30)
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
[2019-06-04 04:47] LABS: #Basophils 0.1 thou/uL (0.0-0.2); #Eosinphils 0.3 thou/uL (0.0-0.7); #Lymphocytes 1.8 thou/uL (1.20-3.40); #Monocytes 0.5 thou/uL (0.11-0.59); #Neutrophils 7.8 thou/uL (1.40-6.50); %Basophils 0.6 % (0.0-1.0); %Eosinophils 2.6 % (0.0-10.0); %Lymphocytes 17.5 % (21.0-51.0); %Monocytes 4.7 % (0.0-10.0); %Neutrophils 74.6 % (42.0-75.0); Hemoglobin 12.3 g/dL (12.0-16.0); Mean Corpuscular HGB CONC 34.4 g/dL (32.0-36.0); Mean Corpuscular Hemoglobin 32.7 pg (27.0-31.0); Mean Corpuscular Volume 95.1 fL (78.0-98.0); Mean Platelet Volume 6.9 fL (7.4-10.4); Platelet Count 282 thou/uL (130-400); RBC Distribution Width 14.6 % (11.5-14.5); Red Blood Cell (RBC) Count 3.76 mill/uL (4.20-5.40); White Blood Cell (WBC) Count 10.4 thou/uL (4.8-10.8)
[2019-06-04 05:07] LABS: Anion Gap 13 mmol/L (10-20); BUN (Urea Nitrogen) 21 mg/dL (9.8-20.1); Calc. Creatinine Clearance 47 mL/min (70-130); Calcium 9.7 mg/dL (7.8-10.44); Carbon Dioxide 24 mmol/L (22-29); Chloride 105 mmol/L (98-107); Estimated GFR-MDRD 35; Glucose 137 mg/dL (70-105); Potassium 4.3 mmol/L (3.5-5.1); Sodium 138 mmol/L (136-145)
[2019-06-04] MEDS ORDERED: traMADol HCl 50 MG TAB PO SCH (06:00)
[2019-06-04] MEDS: Acetaminophen 500 MG TAB PO SCH ×3 (06:35→17:08)
[2019-06-04] MEDS ORDERED: PROVENTIL INHALER 6.7 G (200 INHALATIONS) INH PRN (07:30)
[2019-06-04] MEDS: ALPRAZolam 1 MG TAB PO SCH ×2 (08:39→21:52)
[2019-06-04] MEDS: Dronedarone HCl 400 MG TAB PO SCH ×2 (08:39→17:08)
[2019-06-04] MEDS: Ferrous Sulfate 325 MG TAB PO SCH (08:40)
[2019-06-04] MEDS: Carvedilol 25 MG TAB PO SCH ×2 (08:40→21:54)
[2019-06-04] MEDS: Losartan/Hydrochlorothiazide 100 mg/25 mg Tablet PO SCH (08:40)
[2019-06-04] MEDS: Famotidine 20 MG TAB PO SCH (08:40)
[2019-06-04] MEDS: Folic Acid 1 MG TAB PO SCH (08:40)
[2019-06-04] MEDS: Gabapentin 100 MG CAP PO SCH ×3 (08:41→21:51)
[2019-06-04] MEDS: Furosemide 40 MG TAB PO SCH (08:41)
[2019-06-04] MEDS ORDERED: Gabapentin 300 MG CAP PO SCH (09:00)
[2019-06-04] MEDS ORDERED: Carvedilol 6.25 MG TAB PO SCH (09:00)
[2019-06-04] MEDS: hydrALAZINE 25 MG TAB PO SCH ×3 (09:40→21:52)
[2019-06-04] MEDS: cloNIDine 0.2 MG TAB PO SCH ×2 (09:40→21:51)
[2019-06-04] MEDS: traMADol HCl 50 MG TAB PO SCH ×2 (11:28→17:08)
[2019-06-04] MEDS: Heparin 5,000 UNITS/ML VIAL SC SCH ×2 (14:53→21:57)
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
[2019-06-04] MEDS: Atorvastatin Calcium 20 MG TAB PO SCH (21:50)
[2019-06-05] MEDS: traMADol HCl 50 MG TAB PO SCH ×5 (00:30→23:43)
[2019-06-05] MEDS: Acetaminophen 500 MG TAB PO SCH ×5 (00:30→23:44)
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
[2019-06-05] MEDS: Dronedarone HCl 400 MG TAB PO SCH ×2 (08:10→17:27)
[2019-06-05] MEDS: Folic Acid 1 MG TAB PO SCH (08:10)
[2019-06-05] MEDS: Gabapentin 100 MG CAP PO SCH ×3 (08:10→20:07)
[2019-06-05] MEDS: Losartan/Hydrochlorothiazide 100 mg/25 mg Tablet PO SCH (08:10)
[2019-06-05] MEDS: Ferrous Sulfate 325 MG TAB PO SCH (08:11)
[2019-06-05] MEDS: Carvedilol 25 MG TAB PO SCH ×2 (08:11→20:06)
[2019-06-05] MEDS: ALPRAZolam 1 MG TAB PO SCH ×2 (08:11→22:55)
[2019-06-05] MEDS: Famotidine 20 MG TAB PO SCH (08:11)
[2019-06-05] MEDS: Heparin 5,000 UNITS/ML VIAL SC SCH ×3 (08:12→20:08)
[2019-06-05] MEDS: hydrALAZINE 25 MG TAB PO SCH ×3 (08:13→20:08)
[2019-06-05] MEDS: cloNIDine 0.2 MG TAB PO SCH ×2 (08:13→20:06)
[2019-06-05] MEDS ORDERED: Polyethylene Glycol 3350 17 GM Packet PO PRN (18:30)
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
[2019-06-05] MEDS: Senokot S 8.6-50 MG TAB PO SCH (20:06)
[2019-06-05] MEDS: Atorvastatin Calcium 20 MG TAB PO SCH (20:07)
[2019-06-06] MEDS: traMADol HCl 50 MG TAB PO SCH ×2 (05:24→11:49)
[2019-06-06] MEDS: Acetaminophen 500 MG TAB PO SCH ×2 (05:25→11:50)
[2019-06-06 07:28] VITALS: TEMP 98.1
[2019-06-06] MEDS: Dronedarone HCl 400 MG TAB PO SCH (08:51)
[2019-06-06] MEDS ORDERED: Apixaban 5 MG TAB PO SCH (09:00)
[2019-06-06] MEDS: Gabapentin 100 MG CAP PO SCH (09:34)
[2019-06-06] MEDS: Folic Acid 1 MG TAB PO SCH (09:34)
[2019-06-06] MEDS: Senokot S 8.6-50 MG TAB PO SCH (09:38)
[2019-06-06] MEDS: ALPRAZolam 1 MG TAB PO SCH (09:39)
[2019-06-06] MEDS: Furosemide 40 MG TAB PO SCH (09:39)
[2019-06-06] MEDS: Ferrous Sulfate 325 MG TAB PO SCH (09:40)
[2019-06-06] MEDS: Famotidine 20 MG TAB PO SCH (09:40)
[2019-06-06] MEDS: Carvedilol 25 MG TAB PO SCH (09:40)
[2019-06-06] MEDS: Losartan/Hydrochlorothiazide 100 mg/25 mg Tablet PO SCH (10:45)
[2019-06-06] MEDS: cloNIDine 0.2 MG TAB PO SCH (10:45)
[2019-06-06] MEDS: hydrALAZINE 25 MG TAB PO SCH (10:46)
[2019-06-06 13:08] VITALS: BP 116/72
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
--- NOTE | 2019-06-10 23:08 | EKG ---
Test Reason : Blood Pressure : / mmHG Vent. Rate : 071 BPM Atrial Rate : 071 BPM P-R Int : 212 ms QRS Dur : 074 ms QT Int : 434 ms P-R-T Axes : 018 071 085 degrees QTc Int : 471 ms Sinus rhythm with 1st degree A-V block with Fusion complexes Nonspecific T wave abnormality Prolonged QT Abnormal ECG Confirmed by NANCI Vigil, PORTER ([id number]), editor map SCOTT AGUSTIN ([id number]) on 06/10/2019 11:07:57 PM Referred By: Confirmed By:PORTER CHRISTINE M.D.
== END 2019-06-06 12:50 | disposition home or self-care (01) ==
LOC: ERS 20:20 → INTOOBSV 06-04 02:44 → SURG A 06-04 02:44
PROVIDERS: ADMIT Surgery; ATTEND Surgery
DX: S22.42XA Multiple fractures of ribs, left side, initial encounter for closed fracture (principal); G89.11 Acute pain due to trauma; I12.9 Hypertensive chronic kidney disease with stage 1 through stage 4 chronic kidney disease, or unspecified chronic kidney disease; E11.22 Type 2 diabetes mellitus with diabetic chronic kidney disease; N18.9 Chronic kidney disease, unspecified; I50.9 Heart failure, unspecified; I48.91 Unspecified atrial fibrillation; E78.5 Hyperlipidemia, unspecified; F41.9 Anxiety disorder, unspecified; F32.9 Major depressive disorder, single episode, unspecified; F17.210 Nicotine dependence, cigarettes, uncomplicated; Z86.73 Personal history of transient ischemic attack (TIA), and cerebral infarction without residual deficits; Z79.01 Long term (current) use of anticoagulants; Z79.84 Long term (current) use of oral hypoglycemic drugs; Z79.899 Other long term (current) drug therapy; V89.2XXA Person injured in unspecified motor-vehicle accident, traffic, initial encounter
CPT/HCPCS: 36415; 36416; 70450; 71045; 71260; 72125; 74177; 80048; 80053; 82550; 84484; 85025; 85610; 85730; 93005; 94640; 96361; 96374; 96375; 96376; G0378; G0390; J1644; J1815; J2270; J2405; J7620; Q9966

== ENCOUNTER 2020-08-02 10:23 | Outpatient (CLI) | payer OTHER ==
--- NOTE | 2020-08-02 10:49 | MMO ---
Bilateral MAMMO Bilat Screen DDI. CLINICAL HISTORY: Patient is 59 years old and is seen for screening. The patient has no family history of breast cancer. The patient has no personal history of cancer. VIEWS: The views performed were: bilateral craniocaudal and bilateral mediolateral oblique. FILMS COMPARED: The present examination has been compared to prior imaging studies performed at [facility] on 10/14/2017, 10/26/2017, 07/12/2018 and 12/05/2018. This study has been interpreted with the assistance of computer-aided detection. MAMMOGRAM FINDINGS: The breasts are almost entirely fat. There are stable benign appearing calcifications seen in both breasts. There are no suspicious masses, suspicious calcifications, or new areas of architectural distortion. IMPRESSION: THERE IS NO MAMMOGRAPHIC EVIDENCE OF MALIGNANCY. A ROUTINE FOLLOW-UP MAMMOGRAM IN 1 YEAR IS RECOMMENDED. ACR BI-RADS Category 2 - Benign finding MAMMOGRAPHY NOTE: 1. A negative mammogram report should not delay a biopsy if a dominant of clinically suspicious mass is present. 2. Approximately 10% to 15% of breast cancers are not detected by mammography. 3. Adenosis and dense breasts may obscure an underlying neoplasm. Reported by: MALA SMITH MD Electonically Signed: [id number]
== END 2020-08-02 10:24 | disposition home or self-care (01) ==
LOC: BICMAMMO 10:23
PROVIDERS: ATTEND Internal Medicine
DX: Z12.31 Encounter for screening mammogram for malignant neoplasm of breast (principal)
CPT/HCPCS: 77067

== ENCOUNTER 2021-02-12 13:06 | Outpatient (CLI) | payer OTHER ==
[2021-02-12] MEDS ORDERED: Magnevist 469MG/ML 20 ML VIAL ONE (14:12)
== END 2021-02-12 13:07 | disposition home or self-care (01) ==
LOC: MRI 13:06
PROVIDERS: ATTEND Specialist
DX: H91.22 Sudden idiopathic hearing loss, left ear (principal); I25.2 Old myocardial infarction; R90.89 Other abnormal findings on diagnostic imaging of central nervous system
CPT/HCPCS: 70553; A9579

== ENCOUNTER 2021-08-04 10:30 | Outpatient (CLI) | payer OTHER | END 2021-08-04 10:31 | disposition home or self-care (01) | LOC: BICMAMMO 10:30 | PROVIDERS: ATTEND Internal Medicine | DX: Z12.31 Encounter for screening mammogram for malignant neoplasm of breast (principal); Z13.820 Encounter for screening for osteoporosis; Z78.0 Asymptomatic menopausal state; M81.0 Age-related osteoporosis without current pathological fracture | CPT/HCPCS: 77067; 77080 ==

== ENCOUNTER 2022-08-11 12:13 | Outpatient (CLI) | payer MEDICAID | END 2022-08-11 12:14 | disposition home or self-care (01) | LOC: BICMAMMO 12:13 | PROVIDERS: ATTEND Internal Medicine | DX: Z12.31 Encounter for screening mammogram for malignant neoplasm of breast (principal) | CPT/HCPCS: 77067 ==

== ENCOUNTER 2023-11-25 09:23 | Outpatient (CLI) | payer OTHER | END 2023-11-25 09:24 | disposition home or self-care (01) | LOC: BICMAMMO 09:23 | PROVIDERS: ATTEND Internal Medicine | DX: Z12.31 Encounter for screening mammogram for malignant neoplasm of breast (principal) | CPT/HCPCS: 77063; 77067 ==

== ENCOUNTER 2024-03-16 14:42 | Outpatient (CLI) | payer OTHER | END 2024-03-16 14:43 | disposition home or self-care (01) | LOC: BICCT 14:42 | PROVIDERS: ATTEND Internal Medicine | DX: R59.0 Localized enlarged lymph nodes (principal); E04.1 Nontoxic single thyroid nodule; J98.4 Other disorders of lung | CPT/HCPCS: 71250 ==